=== PATIENT | male | born 1950 | race Caucasian/White ===

== ENCOUNTER 2017-09-20 21:02 | Observation (INO) | payer OTHER, MEDICARE ==
[~2017-09-20] VITALS: Ht 162.6 cm; Wt 95.3 kg
[~2017-09-20 21:02] MED LIST: ABILIFY10 M1 PO; BACTRIM 400-801 EACH PO; CHLORTHALIDONE25 M1 PO; FLUPHENAZINE HC10 M1 PO; GABAPENTIN; LIPITOR40 M1 PO; LOTREL 10-40 M1 EACH PO; LOVAZA1 G1 PO; METFORMIN HCL500 M4 PO; METOPROLOL SUC100 M2 PO; PROAIR HFA8.5 GM INH; PROTONIX40 M3 PO
[2017-09-20 21:46] LABS: ABSOLUTE BASOPHIL COUNT 0.1 /CUMM (0.0-0.2); ABSOLUTE LYMPH COUNT 1.5 /CUMM (1.2-3.4); MEAN PLATELET VOLUME 8.1 FL (7.4-10.4); WHITE BLOOD CELL COUNT 5.9 /CUMM (4.8-10.8)
[2017-09-20 21:48] LABS: ABSOLUTE EOSINOPHIL COUNT 0.2 /CUMM (0.0-0.7); ABSOLUTE GRANULOCYTE CT 3.6 /CUMM (1.4-6.5); ABSOLUTE MONOCYTE COUNT 0.5 /CUMM (0.10-0.60); BASOPHIL % 1.5 % (0.0-2.0); GRANULOCYTE % 60.6 % (42.2-75.2); MEAN CORPUSCULAR HGB 25.9 PG (27.0-31.0); MEAN CORPUSCULAR HGB CONC 32.4 G/DL (33.0-37.0); PLATELET COUNT 198 /CUMM (130-400); PT 11.4 SEC (9.4-12.5); RBC DISTRIBUTION WIDTH 16.7 % (11.5-14.5); RED BLOOD CELL CT 2.44 /CUMM (4.70-6.10)
[2017-09-20 21:51] LABS: HEMATOCRIT 19.5 % (42-52)
--- NOTE | 2017-09-20 22:05 | ED GENERAL ADULT ---
History of Present Illness General Chief Complaint: General Adult Stated Complaint: SIB MD FOR BLOOD TRANSFUSION Source: patient, family Exam Limitations: poor historian Vital Signs & Intake/Output Vital Signs & Intake/Output Vital Signs Date Time Temp Pulse Resp B/P B/P Pulse O2 O2 Flow FiO2 Mean Ox Delivery Rate 09/20 2120 97.4 85 20 163/69 95 Room Air ED Intake and Output 09/21 0000 09/20 1200 Intake Total 120 Output Total Balance 120 Intake, Oral 120 Patient 210 lb Weight Weight Estimated Measurement Method Allergies Coded Allergies: No Known Allergies (06/22/16) Reconcile Medications Albuterol Sulfate (Proair Hfa) 90 MCG HFA.AER.AD 2 PUF INH Q4-6 PRN PRN ASTHMA (Reported) Amlodipine Besylate/Benazepril (Lotrel 10-40 MG Capsule) 10 MG-40 MG CAPSULE 1 CAP PO DAILY HTN (Reported) Aripiprazole (Abilify) 10 MG TABLET 1 TAB PO QHS MENTAL HEALTH (Reported) Atorvastatin Calcium (Lipitor) 40 MG TABLET 1 TAB PO QHS CHOLESTEROL ( Reported) Chlorthalidone 25 MG TABLET 1 TAB PO DAILY HTN (Reported) Fluphenazine HCl 10 MG TABLET 1 TAB PO DAILY MENTAL HEALTH (Reported) [GABAPENTIN] ? (Reported) Metformin HCl (Metformin HCl ER) 500 MG TAB.ER.24H 1 TAB PO DAILY DM II ( Reported) Metoprolol Succinate 100 MG TAB.ER.24H 1 TAB PO DAILY HTN (Reported) [place]-3 Acid Ethyl Esters (Lovaza) 1 GRAM CAPSULE 2 CAP PO BID CHOLESTEROL ( Reported) Pantoprazole Sodium (Protonix) 40 MG TABLET. 1 TAB PO DAILY GERD (Reported) Triage Note: RECEIVED 66 YO MALE SENT IN THE ED BY DR MCDUFFIE FOR TRANSFUSION. PT HAS CHRONIC HEMATURIA FROM BLADDER CA. PT REPORTS FEELING WEAK. Triage Nurses Notes Reviewed? yes Onset: Abrupt Duration: hour(s): Timing: recent history HPI: 09/20/17 11:41 PM 66-year-old man presents to the emergency department for blood transfusion. The patient has a history of renal cell carcinoma. They have decided to treat this nonoperatively; currently he also has a history of diabetes. He also has a history of coronary artery disease. He saw his knitting machine fixer today and was referred to the ED for blood transfusion; he denies chest pain shortness of breath or other complaints. Past medical history of renal insufficiency, also chronic gross hematuria. (Billy Ovalles DO) Past History Travel History Traveled to [place] past 21 day No Medical History Any Pertinent Medical History? 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 No (Billy Ovalles DO) Review of Systems Review of Systems Constitutional: Denies: fever. EENTM: Denies: visual changes. Respiratory: Denies: short of breath. Cardiovascular: Denies: chest pain. GI: Denies: abdominal pain. Genitourinary: Reports: hematuria. Musculoskeletal: Reports: no symptoms. Skin: Denies: rash. Neurological/Psychological: Reports: no symptoms. Hematologic/Endocrine: Reports: bleeding. Immunologic/Allergic: Reports: no symptoms. (Billy Ovalles DO) Physical Exam Physical Exam General Appearance: awake, anxious, moderate distress Head: atraumatic, normal appearance Eyes: Bilateral: normal appearance, PERRL, EOMI. Ears, Nose, Throat: normal ENT inspection Neck: normal inspection, supple Respiratory: normal breath sounds, chest non-tender, no respiratory distress Cardiovascular: regular rate/rhythm Peripheral Pulses: 4+ radial (R), 4+ radial (L) Gastrointestinal: soft, non-tender Rectal: heme negative stool Back: decreased range of motion Extremities: pedal edema Neurologic/Psych: awake, alert, oriented x 3 Skin: intact, normal color, warm/dry Core Measures ACS in differential dx? No CVA/TIA Diagnosis: No Sepsis Present: No Sepsis Focused Exam Completed? No (Billy Ovalles DO) Progress Differential Diagnoses I considered the following diagnoses in my evaluation of the patient: [Anemia, coagulopathy, hematuria, thrombocytopenia] Plan of Care: Orders Procedure Date/time Status Nothing by Mouth 09/21 B Active TROPONIN LEVEL 09/21 929 Active CBC WITHOUT DIFFERENTIAL 09/21 929 Active EKG 09/21 09 Active Pathway - chart 09/21 445 Active House Staff 09/21 445 Active Patient Data 02/13 0446 Active Patient Data 02/13 0430 Active Saline Lock 09/[address] in observation 09/21 422 Active Misc Message 09/21 422 Active ED Holding Orders 09/21 422 Active Vital Signs 09/21 422 Active Code Status 09/21 422 Active Add-on Test (ER Only) 09/21 0330 Active TROPONIN LEVEL 09/21 033 Active BLOOD PRODUCT PICKUP 09/21 031 Active EKG 09/21 228 Active CULTURE,URINE 09/21 223 Active URINALYSIS 09/21 223 Complete VTE Mechanical Prophylaxis 09/21 UNK Active FingerStick- Glucose 09/21 UNK Active BLOOD PRODUCT PICKUP 09/20 2339 Active LEUKOCYTE POOR (PACKED CELLS) 09/20 231 Active Intake & Output 09/20 2218 Active TROPONIN LEVEL 09/20 2129 Complete Saline Lock 09/20 2124 Active PROTHROMBIN TIME 09/20 2124 Complete COMPREHENSIVE METABOLIC PANEL 09/20 2124 Complete CBC WITHOUT DIFFERENTIAL 09/20 2124 Complete TYPE & SCREEN (NOT X-MATCH) 09/20 2124 Active Current Medications Sig/Jacey Start time Last Medication Dose Stop Time Status Admin Insulin Aspart 0 AT BEDTIME 09/21 2200 AC (NovoLOG) Insulin Aspart 0 TIDAC 09/21 0800 AC (NovoLOG) Laboratory Tests 09/21/17 0245: Urinalysis MOD H, Urine Color BLDY H, Urine Clarity TURBD H, Urine pH 6.0, Ur Specific [place] 1.020, Urine Protein 100 H, Urine Ketones NEG, Urine Nitrite NEG, Urine Bilirubin NEG, Urine Urobilinogen 0.2, Ur Leukocyte Esterase NEG, Ur Microscopic SEDIMENT EXAMINED, Urine RBC PACKD H, Urine WBC 1-3 H, Ur Epithelial Cells FEW, Urine Hemoglobin LARGE H, Urine Glucose NEG 09/20/172129: Anion Gap 13, Estimated GFR 40 L, BUN/Creatinine Ratio 17.1, Glucose 146 H, Calcium 9.5, Total Bilirubin < 0.1 L, AST 34, ALT 43, Alkaline Phosphatase 75, Troponin I 0.09, Total Protein 6.9, Albumin 4.1, Globulin 2.8, Albumin/Globulin Ratio 1.5, PT 11.4, INR 1.09, CBC w Diff NO MAN DIFF REQ, RBC 2.44 L, MCV 80.0, MCH 25.9 L, MCHC 32.4 L, RDW 16.7 H, MPV 8.1, Gran % 60.6, Lymphocytes % 25.3 , Monocytes % 8.6, Eosinophils % 4.0, Basophils % 1.5, Absolute Granulocytes 3.6 , Absolute Lymphocytes 1.5, Absolute Monocytes 0.5, Absolute Eosinophils 0.2, Absolute Basophils 0.1 Microbiology 09/21 0245 URINE ROUT: Urine Culture - RECD Initial ED EKG: none (Billy Ovalles DO) Differential Diagnoses I considered the following diagnoses in my evaluation of the patient: Initial ED EKG: flipped t waves with st seg depression, v4-v6 (Adán WOMACK,Manuel Antoine) Departure Departure Disposition: STILL A PATIENT Condition: Stable Clinical Impression Primary Impression: Anemia Secondary Impressions: Renal cancer Referrals: Jessica Sifuentes APRN (PCP/Family) Departure Forms: Customer Survey General Discharge Information Comments 09/21/17 2:30 am The patient is receiving blood transfusions. He was signed out to Dr. Mccain at 2:30 AM (Billy Ovalles DO) Observation Note Spoke With: Maik WOMACK,[facility] Physician Advisor Notified: BILLY OVALLES DO Place Patient In: Non-ED OBS Care Area Rationale for Observation: My rational for observation is as follows . pt with symptomatic anemia, resulting in st segment depressions in v4-v6. discussed with dr. limon (covering for dr. mcduffie).... pt merits observation, serial trops/ekg/monitoring. (Adán WOMACK,Manuel nAtoine) Critical Care Note Critical Care Note Critical Care Time: 30-74 min (Billy Ovalles DO)
--- NOTE | 2017-09-21 04:41 | History & Physical ---
Jess WOMACK,[facility] 09/21/17 0441: General Information and HPI MD Statement: I have seen and personally examined LYN TELLEZ and documented this H&P. The patient is a 66 year old M who presented with a patient stated chief complaint of [anemia, ]. Source of Information: patient, family, old records Exam Limitations: poor historian History of Present Illness: 66 yo M with PMH of diabetes, HTN, HLD, CAD s/p 2 stents at [facility] on August 27 2017, transitional cell carcinoma diagnosed Apr 2017 (Dr Alfredo) was sent in to the ED by his professor computer science Dr Power. Most of the history has been gathered from the sister. The patient is a very poor historian. The sister informs that for the past year, the patient has been having gross hematuria. He was diagnosed with a tumor in his left kidney but he currently isn 't on any treatment for it. Yesterday, he went to see his professor computer science Dr Power who did some blood work. He called the patient today and recommended him to go to the ED as his blood levels were low and he needed a transfusion. The sister also mentions that for the past few days the patient has been feeling tired and lightheaded. He lives in a asssited living senior facility in [place] ([address] [place] [address]). He has a visiting nurse that helps him out with the medications. She mentions the patient likely uses [facility] in [place] as the pharmacy. Further information about the patient may be obtained from the brother Darlin [phone] Allergies/Medications Allergies: Coded Allergies: No Known Allergies (06/22/16) Home Med list Albuterol Sulfate (Proair Hfa) 90 MCG HFA.AER.AD 2 PUF INH Q4-6 PRN PRN ASTHMA (Reported) Amlodipine Besylate/Benazepril (Lotrel 10-40 MG Capsule) 10 MG-40 MG CAPSULE 1 CAP PO DAILY HTN (Reported) Aripiprazole (Abilify) 15 MG TABLET 1 TAB PO DAILY BIPOLAR (Reported) Aspirin (Aspirin*) 81 MG TAB.CHEW 1 TAB PO DAILY CAD (Reported) Atorvastatin Calcium (Lipitor) 40 MG TABLET 1 TAB PO QHS CHOLESTEROL ( Reported) Chlorthalidone 25 MG TABLET 1 TAB PO DAILY HTN (Reported) Clopidogrel Bisulfate (Clopidogrel) 75 MG TABLET 1 TAB PO DAILY CAD (Reported ) Fluphenazine HCl 5 MG TABLET 1 TAB PO BID MENTAL HEALTH (Reported) Gabapentin (Neurontin) 800 MG TABLET 1 TAB PO BID NEUROPATHY (Reported) 1100 MG IN AM AND 800 MG IN PM Metoprolol Succinate 100 MG TAB.ER.24H 1 TAB PO DAILY HTN (Reported) [place]-3 Acid Ethyl Esters (Lovaza) 1 GRAM CAPSULE 2 CAP PO BID CHOLESTEROL ( Reported) Pantoprazole Sodium (Protonix) 40 MG TABLET.DR 1 TAB PO DAILY GERD (Reported) Past History Travel History Traveled to [place] past 21 day No Medical History Neurological: NONE EENT: NONE Cardiovascular: hypertension, hyperlipidemia Respiratory: NONE Gastrointestinal: NONE Hepatic: NONE Renal: NONE Musculoskeletal: NONE Psychiatric: MOOD SWINGS Endocrine: diabetes Blood Disorders: NONE Cancer(s): bladder cancer 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 Exam & Diagnostic Data Last 24 Hrs of Vital Signs/I&O Vital Signs Date Time Temp Pulse Resp B/P B/P Pulse O2 O2 Flow FiO2 Mean Ox Delivery Rate 09/21 0702 96.6 78 18 152/66 98 Room Air 09/20 2121 97.4 85 20 163/69 95 Room Air Intake & Output 09/21 0800 09/21 0000 09/20 1600 Intake Total 700 120 Output Total 200 Balance 500 120 Intake, Blood 700 Product Intake, Oral 120 Output, Urine 200 Patient 210 lb Weight Weight Estimated Measurement Method Physical Exam General Appearance Alert, Cooperative, No Acute Distress Skin No Rashes, No Breakdown Skin Temp/Moisture Exam: Warm/Dry Sepsis Skin Exam (color): Normal for Ethnicity HEENT Atraumatic Cardiovascular Normal S1, Normal S2, No Murmurs Lungs Clear to Auscultation, Normal Air Movement Abdomen Soft, No Tenderness Neurological Normal Speech Extremities No Edema Assessment/Plan Assessment: 66 yo M with PMH of diabetes, HTN, HLD, CAD s/p 2 stents at [facility] on August 27 2017, transitional cell carcinoma diagnosed Apr 2017 (Dr Alfredo) was sent in to the ED by his professor computer science Dr Power. Assessment: Problem List: 1. Acute Blood Loss Anemia 2. Symptomatic Anemia 3. Chronic Hematuria 4. Transitional Cell Carcinoma of Bladder 5. EKG changes - T wave inversions V4-V6 Plan: * Admit patient in Obs and monitor on telemetry for any arrhythmias. * transfuse 2 units pRBC and repeat CBC 1 hour after transfusion * Target Hb >8 as he has active history of CAD with stents placed last month. * R/o ACS with serial trops and EKG * Obtain Echocardiogram * Urology consult with Dr Alfredo * Follow up urine culture. * Cardiology consult with Dr Power in am * Insulin SS with Accucheks * Obtain medication list from his pharmacy ([facility] in [place] according to sister and [facility] in [place] as per patient) or from his [facility] facility. * Diet: Diabetic * DVT Prophylaxis: SC Heparin x 3 * Code: Full Code As Ranked By This Provider Problem List: 1. Hematuria Core Measures/Misc (04/25) Acute Coronary Syndrome ACS Diagnosis: No Congestive Heart Failure Congestive Heart Failure Diagnosis No Cerebrovascular Accident CVA/TIA Diagnosis: No VTE (View Protocol) VTE Risk Factors Age>40 No Mechanical VTE Prophylaxis d/t N/A MechProphylax Ordered No VTE Pharm Prophylaxis d/t NA PharmProphylax ordered Sepsis (View protocol) Sepsis Present: No Observation Initial Note - I have personally examined LYN TELLEZ on 09/21/17 at 0754. The disposition of LYN TELLEZ is uncertain at this time and before a determination can be made, he requires a period of observation for the following reasons [anemia, EKG changes] Austin WOMACK,Rogelio 09/21/17 0445: Resident Review Statement Resident Statement: examined this patient, discussed with finance accounting internship Other Findings: H Mr Tellez is a 66 yo M with PMH of diabetes, HTN, HLD, CAD s/p 2 stents at [facility] on August 27 2017, transitional cell carcinoma diagnosed Apr 2017 (Dr Alfredo) who was sent in by his professor computer science due evidence of low H/H from outpatient screening. We attempted to obtain clinical history from the patient however he was unable to provide a clear history. Some of the history below was obtained from the patient's sister who states that the patient has been having gross hematuria for approximately a year and 2 months. He was diagnosed with a left kidney tumor however is currently not on any treatment for it. He recently went to see his professor computer science on 09/20/2017 and after blood work showed he was profoundly anemic he was requested to come to the emergency department. Patient lives in senior facility in [place]. He has a visiting nurse that helps him with medications. Patient has a history of smoking approximately 30 pack years. An EKG done in the emergency department showed flipped T waves. R: April clinical interaction the patient denied any fever, chills, nausea, vomiting. He does endorse recent weight loss. Denies any chest pain or chest discomfort. He denies any changes to dysuria. E temperature 97.4. Respirations 20. BP 160 through 69. Heart rate 85.. L WBC 5.9. H&H 6.3 and 19.5. Platelets 158. Sodium 138. Potassium 3.9. BUN 29. Creatinine 1.7. I As above. EKG: T wave inversions V3 V4 V5 V6. A Mr Tellez is a 66 yo M with PMH of diabetes, HTN, HLD, CAD s/p 2 stents at [facility] on August 27 2017, transitional cell carcinoma diagnosed Apr 2017 (Dr Alfredo) who was sent in by his professor computer science due evidence of low H/H from outpatient screening. No H&H likely result of losses from hematuria. Acute blood loss anemia likely due to hematuria. Symptomatic anemia. Acute kidney injury. EKG changes. Recent diagnosis of transitional cell carcinoma. Place in observation for 24 hours. Monitor serial EKG and troponin. Obtain echocardiogram. Cardiology consultation with Dr. Power. Transfuse to maintain H&H above 8. Obtain urology consultation. Consider urine analysis. Obtain medication reconciliation from [facility] in [place]. Patient is a full code. Observation Initial Note - I have personally examined LYN TELLEZ on 09/21/17 at 0949. The disposition of LYN TELLEZ is uncertain at this time and before a determination can be made, he requires a period of observation for the following reasons [] Maik WOMACK, [facility] 09/21/17 0612: Attending MD Review Statement Attending Statement Attending MD Statement: examined this patient, discuss w/resident/PA/FLAVOR ROOM WORKER, agreed w/resident/PA/FLAVOR ROOM WORKER, reviewed images, amended to note Attending Assessment/Plan: 66 yo M with h/o HTN, T2DM, CKD, CAD s/p angioplasty and 2 stents (Aug 2017 at [facility]), gross hematuria underwent cystoscopy with renal biopsy and left ureteral stent insertion (Apr 2017) concerning for transitional cell carcinoma located in the left renal pelvis and extending into the lower pole calyx, was sent in to ER yesterday evening by Dr. Power for blood transfusion given low blood counts. Patient is a very poor historian and would not answer any questions for us. Limited history was obtained from sister. Patient follows Dr. Alfredo and it is not clear if his renal cancer was treated. The only symptoms that patient reports is weakness and lightheadedness. But he attributes it to walking too much. He denies chest pain, dyspnea or palpitations. Pathology (Apr 2017) reports shows benign left renal biopsy and urothelial proliferation of uncertain malignant potential on bladder biospy. Cytology suggest possible dysplasia/ carcinoma. Vitals stable. Examination is remarkable for pallor. Patient was not co-operative with an exam. Labs: H/H 6.3/19.5 (baseline 11-13/ 32-39), INR 1.09, BUN 29, creat 1.7 ( Baseline 0.9 --> 1.5), glucose 146. UA bloody, turbid, proteinuria, packed RBC, large hemoglobin. EKG: sinus rhythm, TWI in V3-V6, I, II, aVL (old ekg is from 2004). Assessment and plan: 1. Acute blood loss anemia 2. Symptomatic anemia 3. Gross hematuria 4. Recent diagnosis of renal/transitional cell carcinoma 5. Acute EKG changes 6. Recent h/o CAD with stent placement 7. ARETHA renal functions have been gradually worsening over past 3 months - 23 hour observation on Telemetry - Monitor for arrhythmias - Check orthostats - Serial EKG and troponin - Obtain Echo - Consult Cardio Dr. Power - [place] all stools - 2 units PRBC ordered by ER - Goal Hb > 8.0 - Check iron studies, TSH, B12, folic acid, LDH, retic count - Urology consult - Gentle hydration, follow renal functions - Consider nephrology consult - Please obtain records from [facility] or [facility] - CMR needs to be confirmed and meds need to be resumed in AM - I think his EKG findings are from his most recent CAD and stent placement. Please confirm with Dr. Power. DVT ppx Hep SC. Full code. Observation Initial Note - I have personally examined LYN TELLEZ on 09/21/17 at 0612. The disposition of LYN TELLEZ is uncertain at this time and before a determination can be made, he requires a period of observation for the following reasons [anemia, EKG changes] The disposition of LYN TELLEZ is uncertain at this time and before a determination can be made, he requires a period of observation for the following reasons [anemia, EKG changes]
--- NOTE | 2017-09-21 07:31 | PN- Housestaff ---
China Schroeder 09/21/17 0730: Subjective Follow-up For: Acute blood loss anemia due to gross hematuria. Acute T wave inversions History of recent GA (coronary artery diseasestatus posts/p angioplasty and 2 stents recently diagnosed transitional cell carcinoma Subjective: Patient is seen and examined this morning seems better than yesterday denies any chest discomfort trouble breathing palpitations. Vitals are stable. H&H improved after 2 units of blood transfusion, to 8.4/25. 2 sets of troponin negative. Review of Systems Constitutional: Denies: chills, diaphoresis, malaise. EENTM: Denies: blurred vision, double vision, visual changes. Cardiovascular: Denies: chest pain, edema, orthopena. Respiratory: Denies: cough, hemoptysis, short of breath. Gastrointestinal: Denies: abdominal pain, bloating, constipation. Genitourinary: Denies: discharge, dysuria, frequency. Objective Last 24 Hrs of Vital Signs/I&O Vital Signs Date Time Temp Pulse Resp B/P B/P Pulse O2 O2 Flow FiO2 Mean Ox Delivery Rate 09/21 1141 98.2 88 18 192/77 97 09/21 1101 97.0 85 20 150/80 09/21 1030 97.0 85 20 150/80 09/21 1030 97.0 85 20 150/80 09/21 0915 97.0 85 20 150/80 98 Room Air 09/21 0915 97.0 85 20 150/80 98 Room Air 09/21 0702 96.6 78 18 152/66 98 Room Air 09/20 2121 97.4 85 20 163/69 95 Room Air Intake & Output 09/21 1600 09/21 0800 09/21 0000 Intake Total 700 120 Output Total 200 Balance 500 120 Intake, Blood 700 Product Intake, Oral 120 Output, Urine 200 Patient 210 lb 210 lb Weight Weight Estimated Measurement Method Physical Exam General Appearance: Alert, Oriented X3 Skin: No Rashes, No Breakdown HEENT: Atraumatic, PERRLA, EOMI Neck: Supple, No JVD Cardiovascular: Regular Rate, Normal S1, Normal S2 Lungs: Clear to Auscultation Abdomen: Normal Bowel Sounds, Soft, No Tenderness Current Medications: Current Medications Sig/Jacey Start time Last Medication Dose Route Stop Time Status Admin Amlodipine Besylate 10 MG DAILY 09/21 1000 AC 09/21 PO 1030 Aripiprazole 15 MG DAILY 09/21 1000 AC 09/21 PO 1030 Aspirin 81 MG DAILY 09/21 1000 AC 09/21 PO 1030 Atorvastatin Calcium 40 MG AT BEDTIME 09/21 2200 AC PO Chlorthalidone 25 MG DAILY 09/21 1000 AC 09/21 PO 1030 Clopidogrel Bisulfate 75 MG DAILY 09/21 1000 AC 09/21 PO 1030 Fluphenazine HCl 5 MG BID 09/21 1000 AC 09/21 PO 1030 Gabapentin 800 MG BID 09/21 1000 AC 09/21 PO 1030 Heparin Sodium 0 .STK-MED ONE 09/21 0829 DC (Porcine) .ROUTE Heparin Sodium 5,000 UNIT Q8 09/21 0816 AC 09/21 (Porcine) SC 0825 Insulin Aspart 0 AT BEDTIME 09/21 2200 AC SC Insulin Aspart 0 TIDAC 09/21 0800 AC SC Lisinopril 40 MG DAILY 09/21 1000 DC PO Metoprolol Succinate 100 MG DAILY 09/21 1000 AC 09/21 PO 1030 Last 24 Hrs of Lab/Jose Results Last 24 Hrs of Labs/Mics: Laboratory Tests 09/21/17 1057: Anion Gap 12, Estimated GFR > 60, BUN/Creatinine Ratio 17.5 09/21/17 0853: Hemoglobin A1c 6.1 H, Iron 31 L, TIBC 478 H, Lactate Dehydrogenase 540, Troponin I 0.08, Vitamin B12 374, Folate 18.2, TSH 0.988, CBC w Diff NO MAN DIFF REQ, RBC 3.15 L, MCV 80.7, MCH 26.6 L, MCHC 33.0, RDW 16.2 H, MPV 8.3, Gran % 60.4, Lymphocytes % 24.2, Monocytes % 8.8, Eosinophils % 5.3 H, Basophils % 1.3 , Absolute Granulocytes 2.9, Absolute Lymphocytes 1.2, Absolute Monocytes 0.4, Absolute Eosinophils 0.3, Absolute Basophils 0.1, Retic Count 2.41 H 09/21/17 0330: Troponin I Cancelled 09/21/17 0245: Urinalysis MOD H, Urine Color BLDY H, Urine Clarity TURBD H, Urine pH 6.0, Ur Specific [place] 1.020, Urine Protein 100 H, Urine Ketones NEG, Urine Nitrite NEG, Urine Bilirubin NEG, Urine Urobilinogen 0.2, Ur Leukocyte Esterase NEG, Ur Microscopic SEDIMENT EXAMINED, Urine RBC PACKD H, Urine WBC 1-3 H, Ur Epithelial Cells FEW, Urine Hemoglobin LARGE H, Urine Glucose NEG 09/20/17 2130: Anion Gap 13, Estimated GFR 40 L, BUN/Creatinine Ratio 17.1, Glucose 146 H, Calcium 9.5, Total Bilirubin < 0.1 L, AST 34, ALT 43, Alkaline Phosphatase 75, Troponin I 0.09, Total Protein 6.9, Albumin 4.1, Globulin 2.8, Albumin/Globulin Ratio 1.5, PT 11.4, INR 1.09, CBC w Diff NO MAN DIFF REQ, RBC 2.44 L, MCV 80.0, MCH 25.9 L, MCHC 32.4 L, RDW 16.7 H, MPV 8.1, Gran % 60.6, Lymphocytes % 25.3 , Monocytes % 8.6, Eosinophils % 4.0, Basophils % 1.5, Absolute Granulocytes 3.6 , Absolute Lymphocytes 1.5, Absolute Monocytes 0.5, Absolute Eosinophils 0.2, Absolute Basophils 0.1 Microbiology 09/21 0245 URINE ROUT: Urine Culture - RECD Assessment/Plan Assessment: Patient is a 66-year-old gentleman with a past medical history significant for hypertension and hyperlipidemia, recent GA status post s/p angioplasty and 2 stents, recently diagnosed transitional cell carcinoma, CAD, type 2 diabetes was sent in by Dr. Power yesterday for blood transfusion due to low blood counts. Problem list Acute blood loss anemia due to GROSS hematuria. Acute T wave inversions History of recent GA (coronary artery diseasestatus post s/p angioplasty and 2 stents Recently diagnosed transitional cell carcinoma \ Plan Acute blood loss anemia due to GROSS hematuria(Recently diagnosed transitional cell carcinoma) * Patient has been monitored on telemetry for 24 hours * H&H improved after 2 units of blood transfusion, to 8.4/25. * Patient has been evaluated by Dr. Alfredo in the morning recommended no surgical interventions at that time. * Advised to follow-up with [facility] after discharge. Acute T wave inversions ( History of recent GA (coronary artery diseasestatus post s/p angioplasty and 2 stents ) * 2 sets of troponin negative with nonspecific T-wave changes in V4 to V6. * Patient is currently asymptomatic, has been evaluated by cardiology in the morning, recommended to continue with aspirin and Plavix (in the setting of recent GA status post angioplasty and drug-eluting stents). Continue all of his home medications. * Continue to monitor H&H. * Patient is medically stable for discharge today advised to follow-up with Dr. Power within 1 week after discharge. * Repeat CBCs within 1 week after discharge. Acute on chronic CKD * Creatinine improved ,Will continue with ANGELES inhibitor is on discharge. DVT prophylaxis Alps only Patient is full CODE Problem List: 1. Hematuria 2. Anemia 3. Renal cancer Pain Ratin Pain Location: no pain at this time Pain Goal: Remain pain free Pain Plan: prn tylenol Tomorrow's Labs & Rationales: no labs. Brian WOMACK,Cinthya 09/21/17 1410: Attending MD Review Statement Attending Statement Attending MD Statement: examined this patient, discuss w/resident/PA/MECHANICAL CAR CHECKER, agreed w/resident/PA/MECHANICAL CAR CHECKER, reviewed EMR data (avail), discussed with nursing, reviewed images Attending Assessment/Plan: Patient seen and examined. He is in observation status and is very keen on leaving. He is a 66-year-old male with a past medical history of diet- controlled diabetes, he hasn't taken his metformin for many months now. He also has hypertension, diabetes, CKD and coronary artery disease with recent stent placement on August 26 on dual antiplatelet therapy. He has transitional cell carcinoma with hematuria ongoing and has had urological evaluations in the past and a urological eval with Dr. Alfredo on this admission. He was sent in by Dr. Power for acute blood loss anemia and was transfused 2 units of blood. He was observed for T-wave inversions and the worry was whether these are old or new. He is asymptomatic and keen on leaving and we confirmed with Dr. Power that he is stable to go. His discharge hemoglobin is 8 and they've given him a prescription to check his CBC in a week to report her hemoglobin to Dr. Power. He needs to go on aspirin and Plavix even though there are risks of bleeding, as the risk of in-stent thrombosis outweigh the risks of bleeding. He will have outpatient urological follow-up. His ARETHA on CKD has resolved and we have restarted his angeles and his diuretic per Dr. Power.
--- NOTE | 2017-09-21 08:29 | PN- Urology ---
Surgical Brief Attending Note Brief Attending Note: Patient known to me but receiving his urologic care at [facility]. He developed gross hematuria and w/u showed an atrophic R kidney and a mass in the L kidney c/w transitional cell ca. Renal scan showed 70% of renal fxn from L kidney and 30% from R. Option of L nephroureterectomy was discussed realizing high probability that patient would require dialysis post op. Because of this conservative management was chosen. He is now admitted with gross hematuria and Hct of 19.5. Plan: 1. Transfuse appropriately 2. After discharge he should f/u with [facility] to re-evaluate treatment options
[2017-09-21 09:13] LABS: ABSOLUTE BASOPHIL COUNT 0.1 /CUMM (0.0-0.2); ABSOLUTE EOSINOPHIL COUNT 0.3 /CUMM (0.0-0.7); ABSOLUTE GRANULOCYTE CT 2.9 /CUMM (1.4-6.5); ABSOLUTE LYMPH COUNT 1.2 /CUMM (1.2-3.4); ABSOLUTE MONOCYTE COUNT 0.4 /CUMM (0.10-0.60); BASOPHIL % 1.3 % (0.0-2.0); EOSINOPHIL % 5.3 % (0-5); GRANULOCYTE % 60.4 % (42.2-75.2); MEAN CORPUSCULAR HGB 26.6 PG (27.0-31.0); MEAN CORPUSCULAR VOLUME 80.7 FL (80.0-94.0); MEAN PLATELET VOLUME 8.3 FL (7.4-10.4); PLATELET COUNT 213 /CUMM (130-400); RBC DISTRIBUTION WIDTH 16.2 % (11.5-14.5); WHITE BLOOD CELL COUNT 4.8 /CUMM (4.8-10.8)
[2017-09-21 09:15] VITALS: BP 150/80
[2017-09-21 09:15] LABS: HEMATOCRIT 25.4 % (42-52); RED BLOOD CELL CT 3.15 /CUMM (4.70-6.10)
[2017-09-21] MEDS ORDERED: ABILIFY15 M1 PO (09:41)
[2017-09-21] MEDS ORDERED: CLOPIDOGREL75 M1 PO (09:42)
[2017-09-21] MEDS ORDERED: ASPIRIN81 M4 PO (09:42)
[2017-09-21] MEDS ORDERED: NEURONTIN800 M2 PO (09:42)
[2017-09-21] MEDS ORDERED: FLUPHENAZINE HCL5 M1 PO (09:44)
--- NOTE | 2017-09-21 12:01 | Cons- Cardiology ---
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 A nephroureterectomy was discussed but was deferred because of the high probability of requiring dialysis and conservative management has been chosen. He underwent recent drug-eluting stent placement 3 for his coronary artery disease. He notes chronic hematuria over the past year secondary to his bladder cancer, which seems to have worsened since the stent placement. He requires aspirin and Plavix because of the stent placement. He complains of recent fatigue and lightheadedness. Prior to his coronary stent placement he was having frequent chest pain, however the chest pain is much better since that time. No recent shortness of breath. No palpitations. No diaphoresis. No nausea or vomiting Allergies/Medications Allergies: Coded Allergies: No Known Allergies (06/22/16) Home Med List: Albuterol Sulfate (Proair Hfa) 90 MCG HFA.AER.AD 2 PUF INH Q4-6 PRN PRN ASTHMA (Reported) Amlodipine Besylate/Benazepril (Lotrel 10-40 MG Capsule) 10 MG-40 MG CAPSULE 1 CAP PO DAILY HTN (Reported) Aripiprazole (Abilify) 15 MG TABLET 1 TAB PO DAILY BIPOLAR (Reported) Aspirin (Aspirin*) 81 MG TAB.CHEW 1 TAB PO DAILY CAD (Reported) Atorvastatin Calcium (Lipitor) 40 MG TABLET 1 TAB PO QHS CHOLESTEROL ( Reported) Chlorthalidone 25 MG TABLET 1 TAB PO DAILY HTN (Reported) Clopidogrel Bisulfate (Clopidogrel) 75 MG TABLET 1 TAB PO DAILY CAD (Reported ) Fluphenazine HCl 5 MG TABLET 1 TAB PO BID MENTAL HEALTH (Reported) Gabapentin (Neurontin) 800 MG TABLET 1 TAB PO BID NEUROPATHY (Reported) 1100 MG IN AM AND 800 MG IN PM Metoprolol Succinate 100 MG TAB.ER.24H 1 TAB PO DAILY HTN (Reported) Artesian-3 Acid Ethyl Esters (Lovaza) 1 GRAM CAPSULE 2 CAP PO BID CHOLESTEROL ( Reported) Pantoprazole Sodium (Protonix) 40 MG TABLET.DR 1 TAB PO DAILY GERD (Reported) Current Medications: Current Medications Sig/Jacey Start time Last Medication Dose Route Stop Time Status Admin Amlodipine Besylate 10 MG DAILY 09/21 1000 DCD 09/21 PO 1030 Aripiprazole 15 MG DAILY 09/21 1000 DCD 09/21 PO 1030 Aspirin 81 MG DAILY 09/21 1000 DCD 09/21 PO 1030 Atorvastatin Calcium 40 MG AT BEDTIME 09/21 2200 DCD PO Chlorthalidone 25 MG DAILY 09/21 1000 DCD 09/21 PO 1030 Clopidogrel Bisulfate 75 MG DAILY 09/21 1000 DCD 09/21 PO 1030 Fluphenazine HCl 5 MG BID 09/21 1000 DCD 09/21 PO 1030 Gabapentin 800 MG BID 09/21 1000 DCD 09/21 PO 1030 Heparin Sodium 0 .STK-MED ONE 09/21 1426 DC (Porcine) .ROUTE Heparin Sodium 0 .STK-MED ONE 09/21 0829 DC (Porcine) .ROUTE Heparin Sodium 5,000 UNIT Q8 09/21 0816 DCD 09/21 (Porcine) SC 1420 Insulin Aspart 0 AT BEDTIME 09/21 2200 DCD SC Insulin Aspart 0 TIDAC 09/21 0800 DCD SC Lisinopril 40 MG DAILY 09/21 1000 DC PO Metoprolol Succinate 100 MG DAILY 09/21 1000 DCD 09/21 PO 1030 Review of Systems Review of Systems: No hemoptysis. No hematemesis. No fever. No chills. All other systems were reviewed, and were noted to be negative. Past History Travel History Traveled to [place] past 21 day No Medical History Neurological: NONE EENT: NONE Cardiovascular: hypertension, hyperlipidemia Respiratory: NONE Gastrointestinal: NONE Hepatic: NONE Renal: NONE Musculoskeletal: NONE Psychiatric: MOOD SWINGS Endocrine: diabetes Blood Disorders: NONE Cancer(s): bladder cancer FIRE BEHAVIOR ANALYST/Reproductive: NONE Surgical History Surgical History: non-contributory Exam & Diagnostic Data Vital Signs and I&O Vital Signs Date Time Temp Pulse Resp B/P B/P Pulse O2 O2 Flow FiO2 Mean Ox Delivery Rate 09/21 1430 98.0 80 20 140/80 98 Room Air 09/21 1141 98.2 88 18 192/77 97 09/21 1101 97.0 85 20 150/80 09/21 1030 97.0 85 20 150/80 09/21 1030 97.0 85 20 150/80 09/21 0915 97.0 85 20 150/80 98 Room Air 09/21 0915 97.0 85 20 150/80 98 Room Air 09/21 0702 96.6 78 18 152/66 98 Room Air 09/201 97.4 85 20 163/69 95 Room Air Intake & Output 09/21 1600 09/21 0000 09/20 1600 09/20 0809/20 0000 Intake Total 700 120 Output Total 200 Balance 500 120 Intake, Blood 700 Product Intake, Oral 120 Output, Urine 200 Patient 210 lb 210 lb Weight Weight Estimated Measurement Method Assessment/Plan Assessment/Plan Assessment: 1. Recent drug-eluting stent placement 3. Aspirin and Plavix required. 2. Transitional cell carcinoma of the left kidney 3. Gross hematuria Recommendations: * Transfusion * Check serial troponin to rule out myocardial infarction * Urology evaluation after discharge at [place] for hematuria * Follow up in the office within 1 week after discharge, and call with further symptoms. Consult Acknowledgment - Thank you for your consult request.
--- NOTE | 2017-09-21 12:14 | Patient Discharge Instructions ---
Discharge Instructions General Discharge Information You were seen/treated for: Acute blood loss anemia Special Instructions: Please follow-up with your primary care physician within 1 week after discharge. Watch for any active signs of bleed. Repeat CBCs within 1 week after discharge Please follow-up with your sql bi developer within 1 week after discharge Diet Recommended Diet: Heart Healthy Activity Activity Self Limited: Yes Acute Coronary Syndrome Inclusion Criteria At DC or during hospital stay patient has or had the following: Discharge Core Measures Meds if any: Prescribed or Continued at Discharge Meds if any: NOT Prescribed or Continued at Discharge Congestive Heart Failure Inclusion Criteria At DC or during hospital stay patient has or had the following: CHF DIAGNOSIS No Discharge Core Measures Meds if any: Prescribed or Continued at Discharge Meds if any: NOT Prescribed or Continued at Discharge Cerebrovascular accident Inclusion Criteria At DC or during hospital stay patient has or had the following: CVA/TIA Diagnosis No Discharge Core Measures Meds if any: Prescribed or Continued at Discharge Meds if any: NOT Prescribed or Continued at Discharge Venous thromboembolism Inclusion Criteria VTE Diagnosis No VTE Type NONE VTE Confirmed by (Test) NONE Discharge Core Measures - Per Current guidelines, there needs to be overlap - treatment for the first 5 days of Warfarin therapy. - If discharged on Warfarin prior to 5 days of - overlap therapy, the patient will need to be - assessed for post discharge needs including - *Post discharge parental anticoagulation - *Warfarin and/or parental anticoagulation education - *Follow up date to check INR post discharge At least 5 days overlap therapy as Inpatient No Meds if any: Prescribed or Continued at Discharge Note: Overlap Therapy is Warfarin and Anticoagulant Meds if any: NOT Prescribed or Continued at Discharge
[2017-09-21 14:30] VITALS: BP 140/80
== END 2017-09-21 14:30 ==
LOC: ERH 21:02 → ERHI 09-21 04:23
PROVIDERS: Emergency Medicine; Student in an Organized Health Care Education/Training Program
DX: D62 Acute posthemorrhagic anemia (principal); E11.22 Type 2 diabetes mellitus with diabetic chronic kidney disease; I12.9 Hypertensive chronic kidney disease with stage 1 through stage 4 chronic kidney disease, or unspecified chronic kidney disease; E78.5 Hyperlipidemia, unspecified; N18.9 Chronic kidney disease, unspecified; E11.40 Type 2 diabetes mellitus with diabetic neuropathy, unspecified; I21.9 Acute myocardial infarction, unspecified; I25.10 Atherosclerotic heart disease of native coronary artery without angina pectoris; Z95.5 Presence of coronary angioplasty implant and graft; Z79.82 Long term (current) use of aspirin; Z85.51 Personal history of malignant neoplasm of bladder; Z79.01 Long term (current) use of anticoagulants; R31.9 Hematuria, unspecified
CPT/HCPCS: 81001; 82436; 86920; 87086; 93005; 93010; 96372; 96374; 99291; G0378; J1644; J3490; J7508; P9016

== ENCOUNTER 2017-10-14 13:59 | Inpatient (IN) | payer OTHER, MEDICARE ==
[~2017-10-14] VITALS: Ht 162.6 cm; Wt 95.9 kg
[~2017-10-14 13:59] MED LIST changes: +ABILIFY15 M1 PO; +ASPIRIN81 M4 PO; +CLOPIDOGREL75 M1 PO; +FLUPHENAZINE HCL5 M1 PO; +NEURONTIN800 M2 PO
[2017-10-14 14:29] LABS: ABSOLUTE BASOPHIL COUNT 0 /CUMM (0.0-0.2); ABSOLUTE EOSINOPHIL COUNT 0.2 /CUMM (0.0-0.7); ABSOLUTE GRANULOCYTE CT 3.7 /CUMM (1.4-6.5); ABSOLUTE LYMPH COUNT 1.2 /CUMM (1.2-3.4); ABSOLUTE MONOCYTE COUNT 0.4 /CUMM (0.10-0.60); BASOPHIL % 0.8 % (0.0-2.0); EOSINOPHIL % 3.7 % (0-5); MEAN CORPUSCULAR HGB 24.7 PG (27.0-31.0); MEAN CORPUSCULAR HGB CONC 32.5 G/DL (33.0-37.0); MEAN CORPUSCULAR VOLUME 75.9 FL (80.0-94.0); MEAN PLATELET VOLUME 7.7 FL (7.4-10.4); PLATELET COUNT 224 /CUMM (130-400); RBC DISTRIBUTION WIDTH 18.2 % (11.5-14.5); RED BLOOD CELL CT 2.54 /CUMM (4.70-6.10); WHITE BLOOD CELL COUNT 5.5 /CUMM (4.8-10.8)
[2017-10-14 14:30] LABS: HEMATOCRIT 19.3 % (42-52)
--- NOTE | 2017-10-14 14:43 | ED GENERAL ADULT ---
See Addendum History of Present Illness General Chief Complaint: General Adult Stated Complaint: HGB 6.3 AT OFFICE SENT FOR TRANSFUSION Source: patient, old records, PCP Exam Limitations: no limitations Vital Signs & Intake/Output Vital Signs & Intake/Output ED Intake and Output 10/17 0000 10/16 1200 Intake Total 610 240 Output Total Balance 610 240 Intake, IV 10 Intake, Oral 600 240 Number 1 Bowel Movements Patient 212 lb Weight Weight Bed scale Measurement Method Allergies Coded Allergies: No Known Allergies (06/22/16) Triage Note: SIB [facility] FOR BLOOD TRANSFUSION. PT HGB 6.3 TODAY. RECENT CARDIAC STENTS X 1 MONTH AGO Triage Nurses Notes Reviewed? yes Onset: Abrupt Duration: week(s): (3-4), changing over time, continues in ED, getting worse Timing: recent history Injury Environment: home Severity: moderate, severe No Modifying Factors: none HPI: 66-year-old male past medical history of transitional cell renal carcinoma, coronary artery disease hypertension hyperlipidemia diabetes since for evaluation of symptoms may anemia. Patient has been having hematuria for the past several weeks. He has a history of renal cell carcinoma was recently started on Plavix due to coronary artery disease and 2 stents being placed last month. Since the hematuria his hemoglobin is gradually been dropping. His primary care doctor is been tracking it each week. Patient came in today for another blood draw and is single with 6.3. The primary care doctor felt like he looked very pale and he is been reporting weakness fatigue and shortness of breath on exertion. No chest pain no melena no bright red blood per rectum. He reports that he is been having large amounts of blood in his urine. No difficulty urinating. No back pain or abdominal pain. No hemoptysis or lower extremity edema. (Pato RASHID,Minesh) Reconcile Medications Albuterol Sulfate (Proair Hfa) 90 MCG HFA.AER.AD 2 PUF INH Q4-6 PRN PRN ASTHMA (Reported) Amlodipine Besylate/Benazepril (Lotrel 10-40 MG Capsule) 10 MG-40 MG CAPSULE 1 CAP PO DAILY HTN (Reported) Aripiprazole (Abilify) 15 MG TABLET 1 TAB PO DAILY BIPOLAR (Reported) Aspirin (Aspirin*) 81 MG TAB.CHEW 1 TAB PO DAILY CAD (Reported) Atorvastatin Calcium (Lipitor) 40 MG TABLET 1 TAB PO QHS CHOLESTEROL ( Reported) Chlorthalidone 25 MG TABLET 1 TAB PO DAILY HTN (Reported) Clopidogrel Bisulfate (Clopidogrel) 75 MG TABLET 1 TAB PO DAILY CAD (Reported ) Ferrous Sulfate 325 MG (65 MG IRON) TABLET 1 TAB PO DAILY anemia (Reported) Fluphenazine HCl 5 MG TABLET 1 TAB PO BID MENTAL HEALTH (Reported) Gabapentin (Neurontin) 800 MG TABLET 1 TAB PO BID NEUROPATHY (Reported) 1100 MG IN AM AND 800 MG IN PM Metoprolol Succinate 100 MG TAB.ER.24H 1 TAB PO DAILY HTN (Reported) [place]-3 Acid Ethyl Esters (Lovaza) 1 GRAM CAPSULE 2 CAP PO BID CHOLESTEROL ( Reported) Pantoprazole Sodium (Protonix) 40 MG TABLET.DR 1 TAB PO DAILY GERD (Reported) (Salas WOMACK,Nereida) Past History Travel History Traveled to [place] past 21 day No Medical History Any Pertinent Medical History? see below for history Neurological: NONE EENT: NONE Cardiovascular: hypertension, hyperlipidemia Respiratory: NONE Gastrointestinal: NONE Hepatic: NONE Renal: NONE Musculoskeletal: NONE Psychiatric: MOOD SWINGS Endocrine: diabetes Blood Disorders: anemia Cancer(s): bladder cancer MEDICATION COORDINATOR/Reproductive: NONE Surgical History Surgical History: non-contributory Psychosocial History What is your primary language Uruguayan Tobacco Use: Current Not Daily ETOH Use: denies use Illicit Drug Use: denies illicit drug use Family History Hx Contributory? No (Minesh Glasgow) Review of Systems Review of Systems Constitutional: Reports: malaise, weakness. EENTM: Reports: no symptoms. Respiratory: Reports: see HPI, short of breath. Cardiovascular: Reports: no symptoms. GI: Reports: no symptoms. Genitourinary: Reports: hematuria. Musculoskeletal: Reports: no symptoms. Skin: Reports: no symptoms. Neurological/Psychological: Reports: no symptoms. Hematologic/Endocrine: Reports: no symptoms. Immunologic/Allergic: Reports: no symptoms. All Other Systems: Reviewed and Negative (Minesh Glasgow) Physical Exam Physical Exam General Appearance: well developed/nourished, no apparent distress, alert, awake Head: atraumatic, normal appearance Eyes: Bilateral: PERRL, EOMI, pale conjunctivae. Ears, Nose, Throat: normal pharynx, normal ENT inspection, hearing grossly normal Neck: normal inspection, supple, full range of motion Respiratory: chest non-tender, no respiratory distress, quiet respiration, rhonchi, wheezing Cardiovascular: regular rate/rhythm, normal peripheral pulses Peripheral Pulses: 2+ radial (R), 2+ radial (L) Gastrointestinal: normal bowel sounds, soft, non-tender, no organomegaly Rectal: normal exam, normal rectal tone, heme negative stool Back: normal inspection, normal range of motion, no vertebral tenderness Extremities: normal inspection, normal capillary refill, normal range of motion, no edema Neurologic/Psych: no motor/sensory deficits, awake, alert, oriented x 3, normal gait, normal mood/affect Skin: intact, warm/dry, pallor Lymphatic: no anterior cervical jeferson Core Measures ACS in differential dx? No CVA/TIA Diagnosis: No Sepsis Present: No Sepsis Focused Exam Completed? No (Pato RASHID,Minesh) Progress Differential Diagnoses I considered the following diagnoses in my evaluation of the patient: [ Symptomatic anemia, UTI, kidney stone, pneumonia, bronchitis] Plan of Care: Orders Procedure Date/time Status Discharge Patient 10/16 UNK Active Patient seen and evaluated. He appears very pale and weak. Vital signs are currently stable. He is mentating well. Hemoglobin is 6.3. Rectal exam is negative for blood. Transfusion ordered. Chest x-ray does show some possible signs of interstitial pneumonitis versus CHF. Transfusion ordered at 50 ML's per hour. Additionally patient's creatinine is elevated is GFR is less than half a week usually is. Patient will require admission to the hospital for transfusion serial labs neurology consult, cardiology consult, medication adjustment. Case DISCUSSED WITH Dr. Marina she agrees. Diagnostic Imaging: Viewed by Me: Radiology Read. Discussed w/RAD: Radiology Read. CXR Impression: PATIENT: LYN TELLEZ PRESENT AGE: 66 PATIENT ACCOUNT NO: [id number] : 49 LOCATION: [facility] ORDERING PHYSICIAN: Minesh RASHID SERVICE DATE: 10/14/174441 EXAM TYPE: RAD - XRY-PORTABLE CHEST XRAY EXAMINATION: XR PORTABLE CHEST CLINICAL INFORMATION: Congestive heart failure. Pneumonia. Weakness. COMPARISON: Chest CT 04/13/2017 TECHNIQUE: Portable frontal view of the chest was obtained. FINDINGS: Low lung volumes. There is diffuse coarse interstitial prominence. No focal consolidation or mass. Heart size upper limits of normal. Aortic arch is calcified. No pleural effusion or pneumothorax. No acute osseous abnormality. IMPRESSION: There is diffuse coarse interstitial prominence. This can be seen acutely with bronchiolitis or interstitial pneumonitis, chronically with chronic bronchitis or reactive airways disease. DICTATED BY: Jay Hua MD DATE/TIME DICTATED:10/14/171557 BRAID PATTERN SETTER:ABBY DATE/TIME TRANSCRIBED:10/14/171557 CONFIDENTIAL, DO NOT COPY WITHOUT APPROPRIATE AUTHORIZATION. <Electronically signed in Other Vendor System> SIGNED BY: Jay Hua MD 10/14/17 1603 Initial ED EKG: normal sinus rhythm, ABN T WAVES LATERAL LEADS Prior EKG: unchanged (Minesh Glasgow) Departure Departure Disposition: STILL A PATIENT Condition: Stable Clinical Impression Primary Impression: Symptomatic anemia Secondary Impressions: Acute kidney injury Referrals: Jessica Sifuentes APRN (PCP/Family) Departure Forms: Customer Survey General Discharge Information Admission Note Spoke With: Salvador Garcia MD Documentation of Exam: Documentation of any treatments & extenuating circumstances including Concerns Regarding Discharge (functional status, medication knowledge or non-compliance, living conditions, etc.) that warrant an admission rather than observation: [ Transfusion, serial labs, monitoring of vital signs, nephrology consult, neurology consult, cardiology consult, medication adjustment] (Minesh Glasgow) PA/ENTERPRISE APPLICATION DEVELOPER Co-Sign Statement Statement: ED Attending supervision documentation- [] I saw and evaluated the patient. I have also reviewed all the pertinent lab results and diagnostic results. I agree with the findings and the plan of care as documented in the PA's/ENTERPRISE APPLICATION DEVELOPER's documentation. [X] I have reviewed the ED Record and agree with the PA's/ENTERPRISE APPLICATION DEVELOPER's documentation. [] Additions or exceptions (if any) to the PAs/ENTERPRISE APPLICATION DEVELOPER's note and plan are summarized below: [] (Salas WOMACK,Nereida) Critical Care Note Critical Care Note Critical Care Time: non-applicable (Minesh Glasgow) Documentation of Exam: Documentation of any treatments & extenuating circumstances including Concerns Regarding Discharge (functional status, medication knowledge or non-compliance, living conditions, etc.) that warrant an admission rather than observation: [ Transfusion, serial labs, monitoring of vital signs, nephrology consult, neurology consult, cardiology consult, medication adjustment] Critical Care Note Critical Care Note Critical Care Time: non-applicable
[2017-10-14 15:01] LABS: PT 12.7 SEC (9.4-12.5); PTT 30 SEC (25-37)
--- NOTE | 2017-10-14 16:03 | RADIOLOGY REPORT ---
EXAMINATION: XR PORTABLE CHEST CLINICAL INFORMATION: Congestive heart failure. Pneumonia. Weakness. COMPARISON: Chest CT 04/13/2017 TECHNIQUE: Portable frontal view of the chest was obtained. FINDINGS: Low lung volumes. There is diffuse coarse interstitial prominence. No focal consolidation or mass. Heart size upper limits of normal. Aortic arch is calcified. No pleural effusion or pneumothorax. No acute osseous abnormality. IMPRESSION: There is diffuse coarse interstitial prominence. This can be seen acutely with bronchiolitis or interstitial pneumonitis, chronically with chronic bronchitis or reactive airways disease.
--- NOTE | 2017-10-14 20:03 | History & Physical ---
General Information and HPI Allergies/Medications Allergies: Coded Allergies: No Known Allergies (06/22/16) Home Med list Albuterol Sulfate (Proair Hfa) 90 MCG HFA.AER.AD 2 PUF INH Q4-6 PRN PRN ASTHMA (Reported) Amlodipine Besylate/Benazepril (Lotrel 10-40 MG Capsule) 10 MG-40 MG CAPSULE 1 CAP PO DAILY HTN (Reported) Aripiprazole (Abilify) 15 MG TABLET 1 TAB PO DAILY BIPOLAR (Reported) Aspirin (Aspirin*) 81 MG TAB.CHEW 1 TAB PO DAILY CAD (Reported) Atorvastatin Calcium (Lipitor) 40 MG TABLET 1 TAB PO QHS CHOLESTEROL ( Reported) Chlorthalidone 25 MG TABLET 1 TAB PO DAILY HTN (Reported) Clopidogrel Bisulfate (Clopidogrel) 75 MG TABLET 1 TAB PO DAILY CAD (Reported ) Fluphenazine HCl 5 MG TABLET 1 TAB PO BID MENTAL HEALTH (Reported) Gabapentin (Neurontin) 800 MG TABLET 1 TAB PO BID NEUROPATHY (Reported) 1100 MG IN AM AND 800 MG IN PM Metoprolol Succinate 100 MG TAB.ER.24H 1 TAB PO DAILY HTN (Reported) [place]-3 Acid Ethyl Esters (Lovaza) 1 GRAM CAPSULE 2 CAP PO BID CHOLESTEROL ( Reported) Pantoprazole Sodium (Protonix) 40 MG TABLET. 1 TAB PO DAILY GERD (Reported) Past History Travel History Traveled to [place] past 21 day No Medical History Neurological: NONE EENT: NONE Cardiovascular: hypertension, hyperlipidemia Respiratory: NONE Gastrointestinal: NONE Hepatic: NONE Renal: NONE Musculoskeletal: NONE Psychiatric: MOOD SWINGS Endocrine: diabetes Blood Disorders: anemia Cancer(s): bladder cancer POWDER MONKEY/Reproductive: NONE Surgical History Surgical History: non-contributory Past Family/Social History Psychosocial History ETOH Use: denies use Illicit Drug Use: denies illicit drug use Core Measures/Misc (04/25) Cerebrovascular Accident CVA/TIA Diagnosis: No Sepsis (View protocol) Sepsis Present: No
[2017-10-14 22:26] VITALS: BP 110/70
--- NOTE | 2017-10-14 22:59 | History & Physical ---
Syl WOMACK,Stacy 10/14/17 3725: General Information and HPI MD Statement: I have seen and personally examined LYN TELLEZ and documented this H&P. The patient is a 66 year old M who presented with a patient stated chief complaint of symptomatic anemia Source of Information: patient, family, old records Exam Limitations: no limitations History of Present Illness: This is a 66-year-old male with a past medical history of hypertension, hyperlipidemia, neuropathy, GERD, CAD with 2 stents placed 1 month ago, currently on dual antiplatelet therapy, transitional cell renal carcinoma diagnosed in late 2016, currently not yet treated, diabetes, that was sent in from his PCPs office for a hemoglobin of 6.3. The patient was admitted here back in April 2017 for hematuria, found to have filling defect in the left kidney on CT/IVP, had cystoscopy, left pyelogram, left ureteroscopy with renal pelvic biopsy, bladder biopsy and ureteral stent insertion. Biopsy showed transitional cell carcinoma. Patient was again admitted here in September for gross hematuria with renal scan showing 70% renal function on the left kidney secondary to transitional cell kidney mass and 30% on the right secondary to atrophy. Option of left nephroureterectomy was discussed realizing high probability that patient would require dialysis postop. Patient shows conservative treatment and was to have further workup in November to determine if the size of the kidney mass has grown. He has had no treatment thus far including radiation or chemotherapy. The patient states that prior to coming here, he felt weakness, fatigue, dizziness, and was pale. He states that he has had continuous hematuria for the past 2 months with brown urine, no other urinary symptoms. He follows up with his PCP for weekly CBCs. The patient 1 month ago had 3 drug-eluting stents placed and is on dual antiplatelet therapy. The patient follows with die casting machine operator Dr. Power He denies any chest pain, shortness of breath, palpitations. He also denies any headache, vision change, abdominal or back pain, melena, hematochezia, extremity edema. The patient has a visiting nurse that helps with his medications. The patient has a long history of tobacco use, 1-2 packs per day for 40 years, currently still smokes but not daily. He does not drink or use any illicit drugs. Allergies/Medications Allergies: Coded Allergies: No Known Allergies (06/22/16) Home Med list Albuterol Sulfate (Proair Hfa) 90 MCG HFA.AER.AD 2 PUF INH Q4-6 PRN PRN ASTHMA (Reported) Amlodipine Besylate/Benazepril (Lotrel 10-40 MG Capsule) 10 MG-40 MG CAPSULE 1 CAP PO DAILY HTN (Reported) Aripiprazole (Abilify) 15 MG TABLET 1 TAB PO DAILY BIPOLAR (Reported) Aspirin (Aspirin*) 81 MG TAB.CHEW 1 TAB PO DAILY CAD (Reported) Atorvastatin Calcium (Lipitor) 40 MG TABLET 1 TAB PO QHS CHOLESTEROL ( Reported) Chlorthalidone 25 MG TABLET 1 TAB PO DAILY HTN (Reported) Clopidogrel Bisulfate (Clopidogrel) 75 MG TABLET 1 TAB PO DAILY CAD (Reported ) Ferrous Sulfate 325 MG (65 MG IRON) TABLET 1 TAB PO DAILY anemia (Reported) Fluphenazine HCl 5 MG TABLET 1 TAB PO BID MENTAL HEALTH (Reported) Gabapentin (Neurontin) 800 MG TABLET 1 TAB PO BID NEUROPATHY (Reported) 1100 MG IN AM AND 800 MG IN PM Metoprolol Succinate 100 MG TAB.ER.24H 1 TAB PO DAILY HTN (Reported) [place]-3 Acid Ethyl Esters (Lovaza) 1 GRAM CAPSULE 2 CAP PO BID CHOLESTEROL ( Reported) Pantoprazole Sodium (Protonix) 40 MG TABLET.DR 1 TAB PO DAILY GERD (Reported) Compliance With Home Meds: GOOD Past History Travel History Traveled to [place] past 21 day No Medical History Blood Transfusion Hx: Yes Neurological: NONE EENT: NONE Cardiovascular: hypertension, hyperlipidemia Respiratory: NONE Gastrointestinal: NONE Hepatic: NONE Renal: NONE Musculoskeletal: NONE Psychiatric: MOOD SWINGS Endocrine: diabetes Blood Disorders: anemia Cancer(s): bladder cancer DINING ROOM TABLES SET UP ATTENDANT/Reproductive: NONE Isolation History: Standard Surgical History Surgical History: non-contributory Past Family/Social History Psychosocial History Where do you live? Home Smoking Status: Current Some Day Smoker ETOH Use: denies use Illicit Drug Use: denies illicit drug use Review of Systems Review of Systems Constitutional: Reports: weakness. EENTM: Reports: no symptoms. Cardiovascular: Reports: no symptoms. Respiratory: Reports: no symptoms. GI: Reports: no symptoms. Genitourinary: Reports: hematuria. Musculoskeletal: Reports: no symptoms. Skin: Reports: no symptoms. Neurological/Psychological: Reports: no symptoms. Hematologic/Endocrine: Reports: bleeding. Immunologic/Allergic: Reports: no symptoms. All Other Systems: Reviewed and Negative Exam & Diagnostic Data Last 24 Hrs of Vital Signs/I&O Vital Signs Date Time Temp Pulse Resp B/P B/P Pulse O2 O2 Flow FiO2 Mean Ox Delivery Rate 10/14 2225 98.1 82 20 110/70 92 Room Air 10/14 2208 92 Room Air 10/14 2012 98.2 83 20 145/68 96 Room Air 10/14 1815 98.5 74 20 149/66 99 Room Air 10/14 1745 98.0 76 18 150/68 96 Room Air 10/14 1610 97.9 72 18 127/71 97 Room Air 10/14 1555 98.4 66 18 141/65 97 Room Air 10/14 1408 97.9 68 20 127/56 95 Room Air Intake & Output 10/15 0800 10/15 0000 10/14 1600 Intake Total 0 Output Total 300 Balance -300 0 Intake, Oral 0 Output, Urine 300 Patient 208 lb 206 lb Weight Weight Bed scale Reported by Patient Measurement Method Physical Exam General Appearance Alert, Oriented X3, Cooperative, No Acute Distress Skin No Rashes, No Breakdown, No Significant Lesion Skin Temp/Moisture Exam: Warm/Dry Sepsis Skin Exam (color): Normal for Ethnicity HEENT Atraumatic, PERRLA, EOMI, Mucous Membr. moist/pink Neck Supple, No JVD Cardiovascular Regular Rate, Normal S1, Normal S2, Gallops, left lower sternal border 2/6 murmur systolic Lungs Clear to Auscultation, Normal Air Movement Abdomen Normal Bowel Sounds, Soft, No Tenderness, No Hepatospenomegaly, No Masses, no cva tenderness Neurological Normal Speech Extremities No Clubbing, No Cyanosis, No Edema, Normal Pulses, No Tenderness/ Swelling Vascular Normal Pulses, Pulses Symmetrical Sepsis Peripheral Pulse Location: Radial Sepsis Peripheral Pulse Exam: Normal Sepsis Cap Refill Exam: <2 Sec Last 24 Hrs of Labs/Jose: Laboratory Tests 10/15/17 0020: Troponin I Cancelled 10/14/17 1930: Urine Color BLDY H, Urine Clarity TURBD H, Urine pH 6.0, Ur Specific [place] 1.025, Urine Protein >=300 H, Urine Ketones NEG, Urine Nitrite NEG, Urine Bilirubin NEG, Urine Urobilinogen 1.0, Ur Leukocyte Esterase TRACE H, Ur Microscopic SEDIMENT EXAMINED, Urine RBC PACKD H, Urine WBC 3-5 H, Ur Epithelial Cells RARE, Urine Bacteria FEW H, Urine Hemoglobin LARGE H, Urine Glucose NEG 10/14/17 1415: Anion Gap 14, Estimated GFR 32 L, BUN/Creatinine Ratio 15.7, Glucose 123 H, Calcium 9.7, Iron 46 L, TIBC 508 H, Ferritin 5.6 L, Total Bilirubin 0.3, AST 26, ALT 38, Alkaline Phosphatase 73, Troponin I 0.02, Total Protein 7.3, Albumin 4.3, Globulin 3.0, Albumin/Globulin Ratio 1.4, Vitamin B12 412, Folate 18.8, TSH 0.737, PT 12.7 H, INR 1.16, APTT 30, CBC w Diff NO MAN DIFF REQ, RBC 2.54 L, MCV 75.9 L, MCH 24.7 L, MCHC 32.5 L, RDW 18.2 H, MPV 7.7, Gran % 66.0, Lymphocytes % 22.4, Monocytes % 7.1, Eosinophils % 3.7, Basophils % 0.8, Absolute Granulocytes 3.7, Absolute Lymphocytes 1.2, Absolute Monocytes 0.4, Absolute Eosinophils 0.2, Absolute Basophils 0 Microbiology 10/14 1929 URINE ROUT: Urine Culture - RECD Assessment/Plan Assessment: This is a 66-year-old male with a past medical history of hypertension, hyperlipidemia, neuropathy, GERD, CAD with 2 stents placed 1 month ago, currently on dual antiplatelet therapy, transitional cell renal carcinoma diagnosed in late 2016, not yet treated, diabetes, that was sent in from his PCPs office for symptomatic anemia. The patient was diagnosed with transitional cell renal carcinoma in his left kidney in the fall and was last admitted to for continued hematuria and anemia one month ago. He was found to have only 70% of renal function on the left and 30% of renal function on the right. Nephrectomy was considered but patient deferred as he would likely require dialysis. The patient is to follow-up with his urologist in November for a definitive decision on next steps in treatment. Currently he continues to bleed and has weakness, fatigue, dizziness and pallor of the skin. He reportedly did mention he had shortness of breath on exertion to the PA down in the ED but denies any soreness of breath during our interview. The patient did have 3 drug -eluting stents placed 1 month ago, denies any chest pain. In the ED, vital signs are stable. Labs show hemoglobin of 6.3, MCV 75.9, RDW 18.2, WBC 5.5, platelets 224, BUN 33, creatinine 2.1, 1.7 during his last admission, INR 1.16, PTT 30, troponin negative. UA is positive for blood and few bacteria and trace leukocyte esterase. Chest x-ray shows diffuse coarse interstitial prominence suggestive of acute bronchiolitis or interstitial pneumonitis or chronic bronchitis. EKG showed normal sinus rhythm at a rate of 67 with a QTC of 423 and T-wave inversions unchanged since last time. Plan Symptomatic anemia: Microcytic with an increased RDW secondary to acute urological bleed. -Patient transfused 2 units of blood -Follow up CBC in the morning -Continue dual antiplatelet therapy with Plavix 75 mg daily and aspirin 81 mg daily as patient recently had drug-eluting stents placed -Cardiology consult is deferred for now but consult if increased/uncontrolled bleeding -Guaiac all stools -Follow up EKG and troponins 1 -Continue ferrous sulfate which patient takes outpatient Hematuria secondary to renal cell carcinoma: Patient's hematuria is increased due to his Plavix and aspirin. Differential could include urinary tract infection although there is no real evidence of this on UA. Additionally the cancer could've spread to include other parts of the urological tract that are now bleeding. Patient was most recently evaluated by in September of this year so likely no new changes. Patient could have renal stone, less likely without pain. -Patient has refused White -Renal ultrasound in morning -Bladder scan done which shows 0 mL's after voiding -Urine culture -Urology consult, patient last saw Dr. Alfredo one month ago here Chronic medical problems -Lipitor 40 mg daily for hyperlipidemia -Metoprolol 100 mg daily, amlodipine 10 mg daily, and chlorthalidone 25 mg daily for hypertension -Gabapentin 600 mg twice a day for his neuropathy -Fluphenazine 5 mg twice a day and Abilify 15 mg daily for mood disorder -Omeprazole 40 mg daily for GERD -Accu checks 3 times a day/at bedtime for diabetes Consistent carbohydrate 3 diet Full code DVT prophylaxis with Plavix As Ranked By This Provider Problem List: 1. Acute kidney injury 2. Symptomatic anemia 3. Renal cancer 4. Anemia Core Measures/Misc (04/25) Acute Coronary Syndrome ACS Diagnosis: No Congestive Heart Failure Congestive Heart Failure Diagnosis No Cerebrovascular Accident CVA/TIA Diagnosis: No VTE (View Protocol) VTE Risk Factors Acute Medical Illness No Mechanical VTE Prophylaxis d/t N/A MechProphylax Ordered No VTE Pharm Prophylaxis d/t Bleeding (Active) Sepsis (View protocol) Sepsis Present: No Constantino Fostre 10/14/17 7306: Resident Review Statement Resident Statement: examined this patient, discussed with international logistics analyst, agreed with international logistics analyst, discussed with family, discussed with nursing, reviewed images Other Findings: is a 66 yo man with PMHx. of HTN, DM, CK D, CAD S/P DEIDRE August 2017 is currently on dual antiplatelet therapy, history of transitional cell carcinoma left renal pelvis presented to emergency department with symptomatic anemia, he received 2 units of blood transfusion, will check a CBC at a.m., will continue his home medications, will check renal ultrasound, bedside bladder scan , will check another set of troponin and EKG, urology consult, consider cardiology consult, DVT prophylaxis with Alps, he is a full code JoseSalvador saba 10/15/17 0351: Attending MD Review Statement Attending Statement Attending MD Statement: examined this patient, discuss w/resident/PA/PROTOZOOLOGY TEACHER, agreed w/resident/PA/PROTOZOOLOGY TEACHER, reviewed EMR data (avail), reviewed images, amended to note Attending Assessment/Plan: CC: Low hemoglobin PMH: HTN, DM, CK D, CAD S/P DEIDRE August 2017, history of transitional cell carcinoma left renal pelvis Patient was sent to to ER for low hemoglobin. Patient has been having hematuria and low hemoglobin secondary to transitional cell carcinoma, currently on dual antiplatelet agent after DEIDRE in August 2017. Patient had been following up with primary care physician weekly for hemoglobin checks, his hemoglobin dropped from 6.7-6.3 in last 4 days. Patient has been feeling weak, lethargic and looked pale to his physician, that's why hemoglobin was repeated. Other than the symptoms patient denies chest pain, chest tightness, palpitations, dizziness, loss of consciousness, body swelling, abdominal pain, abdominal distention, blood in stool, black colored stool, nausea or vomiting. He continues to have dark colored urine. History is limited as patient is not very cooperative, does not want to stay in hospital. Vitals: Afebrile, pulse in 60s, RR 20, blood pressure 127/56, saturating well on room air. On exam: A O 3, cooperative, no acute distress, neck supple, JVD normal, no lymphadenopathy, mucosa moist, no focal neurological deficit, no dependent edema , no obvious skin rashes or inflammation CVS: S1-S2, RRR. RS: Clear to auscultate bilaterally. Abdomen: Soft, NT, ND, bowel sounds present. CXR: There is diffuse coarse interstitial prominence. This can be seen acutely with bronchiolitis or interstitial pneumonitis, chronically with chronic bronchitis or reactive airways disease. Assessment and plan 66 year old male with past medical history significant for HTN, DM, CKD, CAD S/P DEIDRE August 2017, history of transitional cell carcinoma left renal pelvis, persistent hematuria, was sent to ER by primary care physician for drop in hemoglobin from 6.7 to 6.3 in last 4 days. Patient has symptoms of weakness, fatigue but denies any chest pain, chest tightness, abdominal pain, black colored stool or bright red blood in stool. His anemia secondary to persistent hematuria which is secondary to transitional cell carcinoma of left renal pelvis and patient being on dual antiplatelet agent for DEIDRE in August 2017. Patient follows up with [facility] and has been refusing left nephrectomy because of CKD in right kidney, as he may become dialysis dependent. Vitals and examination unremarkable except dark-colored urine. He has significant microcytic anemia and elevated creatinine from 1.2 and month of September to 2.1. Urinary obstruction should be ruled out with persistent hematuria as there might be clots for ARETHA. Patient refused to get admitted initially, later on he spoke to his sister and agreed for admission, does not want to stay for more than 1 day. Patient received 2 units PRBC in ER. + Acute on chronic anemia secondary to blood loss + Acute kidney injury + History of transitional cell carcinoma left renal pelvis + History of HTN, DM, CKD, CAD S/P DEIDRE August 2017 - Admit to general medicine - Complete 2 units PRBC transfusion - Repeat H&H in a.m. - Bladder scan - Renal ultrasound - Serial troponins and ECGs - Urology consult - Continue dual antiplatelet agent - Confirm his medications in the morning to resume - DVT prophylaxis with Alps only - I doubt his competency about decision-making, family was not available bedside , should be discussed with family in morning and psych evaluation should be obtained for competency if required
[2017-10-15] MEDS ORDERED: FERROUS SULFAT325 M3 PO (00:42)
--- NOTE | 2017-10-15 03:53 | Admission Certification ---
Admission Certification Certification Statement - As attending physician, I certify that at the time of - admission, based on clinical presentation, severity of - symptoms, need for further diagnostic testing and - therapeutic interventions, and risk of adverse outcomes - without in-hospital treatment, in my clinical assessment, - this patient requires an acute hospital stay for a minimum - of two nights or longer. I have also considered psychsocial - factors such as support system, advanced age, financial - issues, cognitive issues, and failed out-patient treatments, - past re-admission history, safety of patient, and lack of - compliance as applicable. Specific rationale supporting this admission is: acute on chronic anemia secondary to blood loss, he matches area secondary to transitional cell carcinoma of left renal pelvis, acute kidney injury
[2017-10-15 07:05] VITALS: BP 153/85
--- NOTE | 2017-10-15 07:11 | PN- Housestaff ---
See Addendum Subjective Follow-up For: Blood loss anemia 2/2 malignancy Subjective: No overnight events. He was asking to leave this morning. Says his sister in law Jennifer makes medical decisions for him. He feels better after receiving the blood transfusion with no further weakness or fatigue. He has chronic hematuria. No CP, SOB, urinary pain, abd pain, or other issues. Review of Systems Constitutional: Reports: see HPI. EENTM: Reports: no symptoms. Cardiovascular: Reports: no symptoms. Respiratory: Reports: no symptoms. Gastrointestinal: Reports: no symptoms. Genitourinary: Reports: see HPI. Musculoskeletal: Reports: no symptoms. Skin: Reports: no symptoms. Neurological/Psychological: Reports: no symptoms. Hematologic/Endocrine: Reports: no symptoms. Immunologic/Allergic: Reports: no symptoms. Objective Last 24 Hrs of Vital Signs/I&O Vital Signs Date Time Temp Pulse Resp B/P B/P Pulse O2 O2 Flow FiO2 Mean Ox Delivery Rate 10/15 07 97.9 82 18 153/85 98 Room Air 10/15 0000 92 Room Air 10/14 2226 98.1 82 20 110/70 92 Room Air 10/14 2208 92 Room Air 10/14 2012 98.2 83 20 145/68 96 Room Air 10/14 1815 98.5 74 20 149/66 99 Room Air 10/14 1745 98.0 76 18 150/68 96 Room Air 10/14 1610 97.9 72 18 127/71 97 Room Air 10/14 1555 98.4 66 18 141/65 97 Room Air 10/14 1408 97.9 68 20 127/56 95 Room Air Intake & Output 10/15 0800 10/15 0000 10/14 1600 Intake Total 240 0 Output Total 600 300 Balance -360 -300 0 Intake, Oral 240 0 Output, Urine 600 300 Patient 90.775 kg 94.347 kg 93.44 kg Weight Weight Bed scale Bed scale Reported by Patient Measurement Method Physical Exam General Appearance: Alert, Oriented X3, Cooperative, No Acute Distress Cardiovascular: Regular Rate, Normal S1, Normal S2, systolic murmur Lungs: Clear to Auscultation Abdomen: Normal Bowel Sounds, Soft, No Tenderness Extremities: No Edema, Normal Pulses, No Tenderness/Swelling Current Medications: Current Medications Sig/Jacey Start time Last Medication Dose Route Stop Time Status Admin Acetaminophen 975 MG Q8P PRN 10/15 0615 UNVr PO Acetaminophen 650 MG Q6P PRN 10/14 2014 DC PO Albuterol Sulfate 2 PUF Q4-6 PRN PRN 10/15 0045 AC INH Amlodipine Besylate 10 MG DAILY 10/15 1000 AC PO Aripiprazole 15 MG DAILY 10/15 1000 AC PO Aspirin 81 MG DAILY 10/15 1000 AC PO Atorvastatin Calcium 40 MG 2200 10/15 2200 AC PO Chlorthalidone 25 MG DAILY 10/15 999 AC PO Clopidogrel Bisulfate 75 MG DAILY 10/15 1000 AC PO Ferrous Sulfate 325 MG DAILY 10/15 1000 AC PO Fish Oil 1,050 MG BID 10/15 1000 AC PO Fluphenazine HCl 5 MG BID 10/15 1000 AC PO Folic Acid 1 MG DAILY 10/15 999 AC PO Gabapentin 600 MG BID 10/15 1000 AC PO Metoprolol Succinate 100 MG DAILY 10/15 999 AC PO Morphine Sulfate 4 MG Q12P PRN 10/14 2014 AC IV Multivitamins 1 TAB DAILY 10/15 1000 AC PO Omeprazole 40 MG DAILY AC 10/15 0700 AC 10/15 PO 0509 Sodium Chloride 1,000 ML Q13H 10/15 0615 AC 10/15 IV 10/15 1914 0612 Last 24 Hrs of Lab/Jose Results Last 24 Hrs of Labs/Mics: Laboratory Tests 10/15/17 0121: Troponin I Cancelled 10/15/17 0020: Troponin I 0.02 10/14/17 1930: Urine Color BLDY H, Urine Clarity TURBD H, Urine pH 6.0, Ur Specific [place] 1.025, Urine Protein >=300 H, Urine Ketones NEG, Urine Nitrite NEG, Urine Bilirubin NEG, Urine Urobilinogen 1.0, Ur Leukocyte Esterase TRACE H, Ur Microscopic SEDIMENT EXAMINED, Urine RBC PACKD H, Urine WBC 3-5 H, Ur Epithelial Cells RARE, Urine Bacteria FEW H, Urine Hemoglobin LARGE H, Urine Glucose NEG 10/14/17 1415: Anion Gap 14, Estimated GFR 32 L, BUN/Creatinine Ratio 15.7, Glucose 123 H, Calcium 9.7, Iron 46 L, TIBC 508 H, Ferritin 5.6 L, Total Bilirubin 0.3, AST 26, ALT 38, Alkaline Phosphatase 73, Troponin I 0.02, Total Protein 7.3, Albumin 4.3, Globulin 3.0, Albumin/Globulin Ratio 1.4, Vitamin B12 412, Folate 18.8, TSH 0.737, PT 12.7 H, INR 1.16, APTT 30, CBC w Diff NO MAN DIFF REQ, RBC 2.54 L, MCV 75.9 L, MCH 24.7 L, MCHC 32.5 L, RDW 18.2 H, MPV 7.7, Gran % 66.0, Lymphocytes % 22.4, Monocytes % 7.1, Eosinophils % 3.7, Basophils % 0.8, Absolute Granulocytes 3.7, Absolute Lymphocytes 1.2, Absolute Monocytes 0.4, Absolute Eosinophils 0.2, Absolute Basophils 0 Microbiology 10/14 1929 URINE ROUT: Urine Culture - RECD Assessment/Plan Assessment: Mr. Torres is a 66-year-old male with a past medical history of hypertension, hyperlipidemia, neuropathy, GERD, CAD with 2 stents placed 1 month ago, currently on dual antiplatelet therapy, untreated transitional cell renal carcinoma diagnosed in late 2016, diabetes mellitus who was sent in from his PCPs office for symptomatic anemia. Problem list: 1. Acute on chronic blood loss anemia 2. Transitional cell carcinoma 3. Acute kidney injury #Acute on chronic blood loss anemia: Patient has had gross hematuria chronically secondary to malignancy. He received 2 units of packed red blood cells last night and feels better this morning. EKG and troponins have been negative. -CBC every 12H if continues to have gross hematuria -Continue clopidogrel 75 mg daily and aspirin 81 mg daily as patient recently had drug-eluting stents placed -Guaiac all stools -Continue ferrous sulfate -Urine culture #Acute kidney injury: Creatinine on presentation was 2.1. Baseline is 1.0. Today is improved to 1.6. Likely prerenal azotemia in setting of blood loss. -IV fluid hydration -Continue to monitor #Transitional cell carcinoma: Patient has previously refused treatment for this. -Renal ultrasound -Appreciate urology recommendations #Chronic medical problems -Lipitor 40 mg daily for hyperlipidemia -Metoprolol 100 mg daily, amlodipine 10 mg daily, and chlorthalidone 25 mg daily for hypertension -Gabapentin 600 mg twice a day for his neuropathy -Fluphenazine 5 mg twice a day and Abilify 15 mg daily for mood disorder -Omeprazole 40 mg daily for GERD -Accu checks 3 times a day/at bedtime for diabetes DVT prophylaxis with Alps Consistent carbohydrate 3 diet Full code Problem List: 1. Symptomatic anemia Pain Ratin Pain Location: no Pain Goal: Remain pain free Pain Plan: see a/p Tomorrow's Labs & Rationales: cbc
--- NOTE | 2017-10-15 07:34 | PN- Urology ---
Surgical Brief Attending Note Brief Attending Note: Patient known to me. He originally presented with gross hematuria and was found to have a transitional cell ca of the L kidney. His R kidney is atrophic and supplies only 30% of GFR. The patient already has CKD. He is followed by [facility] and [facility]rology. Due to very high risk of needing dialysis after L nephro-ureterectomy he has not been operated on and has been managed conservative. Within the last 2 months he had coronary stents placed and is now on ASA and plavix. His intermittent gross hematuria has gotten worse with the dual antiplatelet therapy. He is now admitted with gross hematuria, symptomatic anemia and a Hct of 19.3 and creatinine of 2.1 (baseline 1.5-1.8). He last saw Dr Montiel at [facility] on 09/28/17. The plan is to continue to manage his symptomatic hematuria conservatively with periodic transfusion until he can come off antiplatelet therapy in about 3 months. If hematuria continues to be significant after that, or if continued conservative management before then is no longer possible then he would require L nephro-ureterectomy and dialysis. Full consult to follow later today
[2017-10-15 08:16] LABS: ABSOLUTE BASOPHIL COUNT 0.1 /CUMM (0.0-0.2); ABSOLUTE EOSINOPHIL COUNT 0.2 /CUMM (0.0-0.7); ABSOLUTE GRANULOCYTE CT 3.4 /CUMM (1.4-6.5); ABSOLUTE MONOCYTE COUNT 0.5 /CUMM (0.10-0.60); BASOPHIL % 1.3 % (0.0-2.0); EOSINOPHIL % 4.1 % (0-5); HEMATOCRIT 22.8 % (42-52); MEAN CORPUSCULAR HGB 26.1 PG (27.0-31.0); MEAN CORPUSCULAR HGB CONC 33.4 G/DL (33.0-37.0); MEAN CORPUSCULAR VOLUME 78.1 FL (80.0-94.0); MEAN PLATELET VOLUME 8.5 FL (7.4-10.4); PLATELET COUNT 194 /CUMM (130-400); RBC DISTRIBUTION WIDTH 17.8 % (11.5-14.5); RED BLOOD CELL CT 2.92 /CUMM (4.70-6.10); WHITE BLOOD CELL COUNT 5.2 /CUMM (4.8-10.8)
[2017-10-15 13:04] VITALS: BP 136/78
--- NOTE | 2017-10-15 16:58 | ULTRASOUND REPORT ---
EXAMINATION: US RETROPERITONEAL COMPLETE (RENAL) CLINICAL INFORMATION: 66-year-old male with history of hematuria and kidney mass. Evaluate for obstruction.. COMPARISON: CT abdomen pelvis 04/06/2017 TECHNIQUE: Real-time imaging of the kidneys and bladder. FINDINGS: RIGHT KIDNEY: 10.0 x 4.4 x 3.1 cm (SAG x AP x TRV). The kidney has a lobulated contour. There is diffuse cortical thinning, unchanged. No calculi or focal parenchymal lesions. No hydronephrosis. LEFT KIDNEY: 13.5 x 7.3 x 5.2 cm (SAG x AP x TRV). The kidney is normal in size, contour, and echogenicity. Renal cortical thickness is normal. There is heterogeneous slightly echogenic material seen within the lower pole calyces which correlate with the previously seen abnormal findings on the CT abdomen pelvis. Findings are likely related to hemorrhage/blood clots and/or underlying urothelial tumor. There is moderate hydronephrosis, the degree appears similar to 04/06/2017. BLADDER: Well-distended and normal. Bilateral ureteral jets are demonstrated. Prevoid bladder volume is 249 mL. Postvoid bladder volume is 11 mL. IMPRESSION: 1. Moderate left-sided hydronephrosis. Compared to the prior study, there is been no significant change in the degree of hydronephrosis. Increased echogenicity in the lower pole calyces likely related to hemorrhage/blood clots. Underlying urothelial tumor is not excluded. 2. Diffuse cortical thinning throughout the right kidney. No right-sided hydronephrosis.
[2017-10-15 19:03] LABS: ABSOLUTE BASOPHIL COUNT 0.1 /CUMM (0.0-0.2); ABSOLUTE EOSINOPHIL COUNT 0.2 /CUMM (0.0-0.7); ABSOLUTE GRANULOCYTE CT 3.5 /CUMM (1.4-6.5); ABSOLUTE LYMPH COUNT 1.4 /CUMM (1.2-3.4); ABSOLUTE MONOCYTE COUNT 0.5 /CUMM (0.10-0.60); BASOPHIL % 1.2 % (0.0-2.0); EOSINOPHIL % 4.1 % (0-5); GRANULOCYTE % 60.8 % (42.2-75.2); HEMATOCRIT 25.1 % (42-52); MEAN CORPUSCULAR HGB 26.4 PG (27.0-31.0); MEAN CORPUSCULAR HGB CONC 33.2 G/DL (33.0-37.0); MEAN CORPUSCULAR VOLUME 79.4 FL (80.0-94.0); MEAN PLATELET VOLUME 8.3 FL (7.4-10.4); PLATELET COUNT 189 /CUMM (130-400); RBC DISTRIBUTION WIDTH 17.4 % (11.5-14.5); RED BLOOD CELL CT 3.16 /CUMM (4.70-6.10); WHITE BLOOD CELL COUNT 5.8 /CUMM (4.8-10.8)
[2017-10-15 21:21] VITALS: BP 140/80
[2017-10-16 06:06] VITALS: BP 156/76
--- NOTE | 2017-10-16 07:37 | Cons- Urology ---
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 He has been managed conservative as L nephro- ureterectomy will likely result in need for dialysis due to his underlying CKD. He recently had coronary stent insertion and is now on antiplatelet therapy which has exacerbated his gross hematuria. The plan is to try to manage his hematuria conservative until 3 months after stent insertion when antiplatelet therapy will be stopped. If bleeding continues at that point then L nephro- uretrectomy and post op dialysis will likely be necessary He was admitted with symptomatic anemia due to Hct of 19 and is now being transfused. Allergies/Medications Allergies: Coded Allergies: No Known Allergies (06/22/16) Home Med List: Albuterol Sulfate (Proair Hfa) 90 MCG HFA.AER.AD 2 PUF INH Q4-6 PRN PRN ASTHMA (Reported) Amlodipine Besylate/Benazepril (Lotrel 10-40 MG Capsule) 10 MG-40 MG CAPSULE 1 CAP PO DAILY HTN (Reported) Aripiprazole (Abilify) 15 MG TABLET 1 TAB PO DAILY BIPOLAR (Reported) Aspirin (Aspirin*) 81 MG TAB.CHEW 1 TAB PO DAILY CAD (Reported) Atorvastatin Calcium (Lipitor) 40 MG TABLET 1 TAB PO QHS CHOLESTEROL ( Reported) Chlorthalidone 25 MG TABLET 1 TAB PO DAILY HTN (Reported) Clopidogrel Bisulfate (Clopidogrel) 75 MG TABLET 1 TAB PO DAILY CAD (Reported ) Ferrous Sulfate 325 MG (65 MG IRON) TABLET 1 TAB PO DAILY anemia (Reported) Fluphenazine HCl 5 MG TABLET 1 TAB PO BID MENTAL HEALTH (Reported) Gabapentin (Neurontin) 800 MG TABLET 1 TAB PO BID NEUROPATHY (Reported) 1100 MG IN AM AND 800 MG IN PM Metoprolol Succinate 100 MG TAB.ER.24H 1 TAB PO DAILY HTN (Reported) [place]-3 Acid Ethyl Esters (Lovaza) 1 GRAM CAPSULE 2 CAP PO BID CHOLESTEROL ( Reported) Pantoprazole Sodium (Protonix) 40 MG TABLET.DR 1 TAB PO DAILY GERD (Reported) Current Medications: Current Medications Sig/Jacey Start time Last Medication Dose Route Stop Time Status Admin Acetaminophen 975 MG Q8P PRN 10/15 0715 AC PO Albuterol Sulfate 2 PUF Q4-6 PRN PRN 10/15 0045 AC INH Amlodipine Besylate 10 MG DAILY 10/15 1000 AC 10/15 PO 1151 Aripiprazole 15 MG DAILY 10/15 1000 AC 10/15 PO 1147 Aspirin 81 MG DAILY 10/15 1000 AC 10/15 PO 1148 Atorvastatin Calcium 40 MG 2200 10/15 2200 AC 10/15 PO 2102 Chlorthalidone 25 MG DAILY 10/15 1000 AC 10/15 PO 1151 Clopidogrel Bisulfate 75 MG DAILY 10/15 1000 AC 10/15 PO 1148 Ferrous Sulfate 325 MG DAILY 10/15 1000 AC 10/15 PO 1148 Fish Oil 1,050 MG BID 10/15 1000 AC 10/15 PO 2102 Fluphenazine HCl 5 MG BID 10/15 1000 AC 10/15 PO 2102 Folic Acid 1 MG DAILY 10/15 1000 AC 10/15 PO 1154 Gabapentin 600 MG BID 10/15 1000 AC 10/15 PO 2102 Metoprolol Succinate 100 MG DAILY 10/15 1000 AC 10/15 PO 1150 Morphine Sulfate 4 MG Q12P PRN 10/14 2014 AC IV Multivitamins 1 TAB DAILY 10/15 1000 AC 10/15 PO 1153 Omeprazole 40 MG DAILY AC 10/15 0700 AC 10/16 PO 0456 Sodium Chloride 1,000 ML Q13H 10/15 0615 DC 10/15 IV 10/15 1914 0612 Past History Medical History Blood Transfusion Hx: Yes Neurological: NONE EENT: NONE Cardiovascular: hypertension, hyperlipidemia Respiratory: NONE Gastrointestinal: NONE Hepatic: NONE Renal: NONE Musculoskeletal: NONE Psychiatric: MOOD SWINGS Endocrine: diabetes Blood Disorders: anemia Cancer(s): bladder cancer LCSW/Reproductive: NONE Surgical History Pertinent Surgical History: non-contributory Psychosocial History Where Do You Live? Home Smoking Status: Current Some Day Smoker ETOH Use: denies use Illicit Drug Use: denies illicit drug use Exam & Diagnostic Data Vital Signs and I&O Vital Signs Date Time Temp Pulse Resp B/P B/P Pulse O2 O2 Flow FiO2 Mean Ox Delivery Rate 10/16 605 97.0 70 20 156/76 97 10/15 2120 97.8 83 20 140/80 93 10/15 1304 98.2 77 18 136/78 96 Room Air 10/15 1151 84 148/80 10/15 1150 84 148/80 Intake & Output 10/16 0810/16 0000 10/15 1600 10/15 0800 10/15 0000 10/14 1600 Intake Total 832 125 2697 240 0 Output Total 600 1000 300 Balance 240 705 850 -760 -300 0 Intake, Blood 350 Product Intake, IV 225 600 Intake, Oral 240 480 500 240 0 Number 1 Bowel Movements Output, Urine 600 1000 300 Patient 212 lb 200 lb 208 lb 206 lb Weight Weight Bed scale Bed scale Bed scale Reported by Patient Measurement Method No acute distress Back: no CVA tenderness Abd: soft and non tender Laboratory Tests 10/15 1824 Hematology CBC w Diff NO MAN DIFF REQ WBC (4.8 - 10.8 /CUMM) 5.8 RBC (4.70 - 6.10 /CUMM) 3.16 L Hgb (14.0 - 18.0 G/DL) 8.3 L Hct (42 - 52 %) 25.1 L MCV (80.0 - 94.0 FL) 79.4 L MCH (27.0 - 31.0 PG) 26.4 L MCHC (33.0 - 37.0 G/DL) 33.2 RDW (11.5 - 14.5 %) 17.4 H Plt Count (130 - 400 /CUMM) 189 MPV (7.4 - 10.4 FL) 8.3 Gran % (42.2 - 75.2 %) 60.8 Lymphocytes % (20.5 - 51.1 %) 24.9 Monocytes % (1.7 - 9.3 %) 9.0 Eosinophils % (0 - 5 %) 4.1 Basophils % (0.0 - 2.0 %) 1.2 Absolute Granulocytes (1.4 - 6.5 /CUMM) 3.5 Absolute Lymphocytes (1.2 - 3.4 /CUMM) 1.4 Absolute Monocytes (0.10 - 0.60 /CUMM) 0.5 Absolute Eosinophils (0.0 - 0.7 /CUMM) 0.2 Absolute Basophils (0.0 - 0.2 /CUMM) 0.1 Assessment/Plan Assessment/Plan Imp: 1. Gross hematuria due to transitional cell ca in L kidney 2. Atrophic R kidney and CKD Plan: 1. Will continue to manage gross hematuria conservatively if possible 2. Transfuse as needed 3. If gross hematuria does not improve when antiplatelet therpay can be stopped then L nephro-ureterectomy and post op dialysis may be necessary Consult Acknowledgment - Thank you for your consult request.
--- NOTE | 2017-10-16 08:12 | PN- Housestaff ---
Deborah WOMACK,Darian 10/16/17811: Subjective Follow-up For: Acute on chronic anemia secondary to blood loss with hematuria Subjective: Patient was seen and examined at bedside. He is resting comfortably. He had no acute events overnight. He continues to have hematuria but reports that it has become event executive shade of pink. Tolerated blood transfusion yesterday well. Patient and his sister makes medical decisions for him would like patient to be discharged today. He denies any lightheadedness, dizziness, loss of consciousness, chest pain, shortness of breath, dysuria, abdominal pain. Review of Systems Constitutional: Denies: chills, fever. EENTM: Reports: no symptoms. Cardiovascular: Reports: no symptoms. Respiratory: Reports: no symptoms. Gastrointestinal: Reports: no symptoms. Genitourinary: Reports: see HPI, hematuria. Denies: dysuria, frequency. Musculoskeletal: Reports: no symptoms. Objective Last 24 Hrs of Vital Signs/I&O Vital Signs Date Time Temp Pulse Resp B/P B/P Pulse O2 O2 Flow FiO2 Mean Ox Delivery Rate 10/16 605 97.0 70 20 156/76 97 10/15 2121 97.8 83 20 140/80 93 10/15 1304 98.2 77 18 136/78 96 Room Air 10/15 1151 84 148/80 10/15 1150 84 148/80 Intake & Output 10/16 1600 10/16 0800 10/16 0000 Intake Total 240 705 Output Total Balance 240 705 Intake, IV 225 Intake, Oral 240 480 Patient 212 lb Weight Weight Bed scale Measurement Method Physical Exam General Appearance: Alert, Oriented X3, Cooperative, No Acute Distress Skin Temp/Moisture Exam: Warm/Dry Cardiovascular: Regular Rate, Normal S1, Normal S2, systolic murmur Lungs: Clear to Auscultation, Normal Air Movement Abdomen: Normal Bowel Sounds, Soft, No Tenderness Neurological: Normal Speech, Normal Tone, Sensation Intact Extremities: No Clubbing, No Cyanosis, No Edema Current Medications: Current Medications Sig/Jacey Start time Last Medication Dose Route Stop Time Status Admin Acetaminophen 975 MG Q8P PRN 10/15 0715 AC PO Albuterol Sulfate 2 PUF Q4-6 PRN PRN 10/15 0045 AC INH Amlodipine Besylate 10 MG DAILY 10/15 1000 AC 10/15 PO 1151 Aripiprazole 15 MG DAILY 10/15 1000 AC 10/15 PO 1147 Aspirin 81 MG DAILY 10/15 1000 AC 10/15 PO 1148 Atorvastatin Calcium 40 MG 2200 10/15 2200 AC 10/15 PO 2102 Chlorthalidone 25 MG DAILY 10/15 1000 AC 10/15 PO 1151 Clopidogrel Bisulfate 75 MG DAILY 10/15 1000 AC 10/15 PO 1148 Ferrous Sulfate 325 MG DAILY 10/15 1000 AC 10/15 PO 1148 Fish Oil 1,050 MG BID 10/15 1000 AC 10/15 PO 210 Fluphenazine HCl 5 MG BID 10/15 1000 AC 10/15 PO 2102 Folic Acid 1 MG DAILY 10/15 1000 AC 10/15 PO 1154 Gabapentin 600 MG BID 10/15 1000 AC 10/15 PO 2102 Metoprolol Succinate 100 MG DAILY 10/15 1000 AC 10/15 PO 1150 Morphine Sulfate 4 MG Q12P PRN 10/14 2014 AC IV Multivitamins 1 TAB DAILY 10/15 1000 AC 10/15 PO 1153 Omeprazole 40 MG DAILY AC 10/15 0700 AC 10/16 PO 0456 Sodium Chloride 1,000 ML Q13H 10/15 0615 DC 10/15 IV 10/15 1914 0612 Last 24 Hrs of Lab/Jose Results Last 24 Hrs of Labs/Mics: Laboratory Tests 10/16/17 0730: Sodium Pending, Potassium Pending, Chloride Pending, Carbon Dioxide Pending, Anion Gap Pending, BUN Pending, Creatinine Pending, BUN/Creatinine Ratio Pending , CBC w Diff Pending, WBC Pending, RBC Pending, Hgb Pending, Hct Pending, MCV Pending, MCH Pending, MCHC Pending, RDW Pending, Plt Count Pending, MPV Pending 10/15/17 1824: CBC w Diff NO MAN DIFF REQ, RBC 3.16 L, MCV 79.4 L, MCH 26.4 L, MCHC 33.2, RDW 17.4 H, MPV 8.3, Gran % 60.8, Lymphocytes % 24.9, Monocytes % 9.0, Eosinophils % 4.1, Basophils % 1.2, Absolute Granulocytes 3.5, Absolute Lymphocytes 1.4, Absolute Monocytes 0.5, Absolute Eosinophils 0.2, Absolute Basophils 0.1 Assessment/Plan Assessment: Mr. Torres is a 66-year-old male with a past medical history of hypertension, hyperlipidemia, neuropathy, GERD, CAD with 2 stents placed 1 month ago, currently on dual antiplatelet therapy, untreated transitional cell renal carcinoma diagnosed in late 2016, diabetes mellitus who was sent in from his PCPs office for symptomatic anemia. Problem list: 1. Acute on chronic blood loss anemia 2. Transitional cell carcinoma 3. Acute kidney injury #Acute on chronic blood loss anemia: Patient has had gross hematuria chronically secondary to malignancy. He received 2 units of packed red blood cells 10/14/17 and 1 unit on 10/15/17. H/H has improved and patient and family members are requesting discharge today. -Patient is asymptomatic and stable for discharge -He was instructed to follow-up with his PCP and urologist after discharge as soon as possible and to follow-up for blood work on 10/18/16 check a CBC. -Continue clopidogrel 75 mg daily and aspirin 81 mg daily as patient recently had drug-eluting stents placed -Guaiac all stools -Continue ferrous sulfate -Urine culture #Acute kidney injury: Creatinine on presentation was 2.1. Baseline is 1.0. Today is improved to 1.3. Likely prerenal azotemia in setting of blood loss. -As a ARETHA continues to improve, patient is stable for discharge #Transitional cell carcinoma: Patient has previously refused treatment for this. -Renal ultrasound showed no significant change from previous studies -Appreciate urology recommendations #Chronic medical problems -Lipitor 40 mg daily for hyperlipidemia -Metoprolol 100 mg daily, amlodipine 10 mg daily, and chlorthalidone 25 mg daily for hypertension -Gabapentin 600 mg twice a day for his neuropathy -Fluphenazine 5 mg twice a day and Abilify 15 mg daily for mood disorder -Omeprazole 40 mg daily for GERD -Accu checks 3 times a day/at bedtime for diabetes DVT prophylaxis with Alps Consistent carbohydrate 3 diet Full code Problem List: 1. Renal cancer 2. Anemia 3. Hematuria Pain Ratin Pain Location: none Pain Goal: Remain pain free Pain Plan: pain pathway Tomorrow's Labs & Rationales: none Maura Darby MD 10/16/17 1441: Attending MD Review Statement Attending Statement Attending Statement: examined this patient, discuss w/resident/PA/[employer], agreed w/resident/PA/[employer], reviewed EMR data (avail) Attending Assessment/Plan: 66M PMH HTN, DM, CKD, CAD S/P DEIDRE August 2017, history of transitional cell carcinoma left renal pelvis, persistent hematuria presenting with dizziness and lightheadedness due to symptomatic anemia and found to have a Hgb drop, received 2 units pRBC with improvement in symptoms. Patient feels well today, back to baseline. He continues to have gross hematuria. Hgb is stable today. 1. Symptomatic anemia secondary to chronic blood loss 2. Gross hematuria secondary to transitional cell carcinoma of the left kidney 3. CAD s/p DEIDRE Plan - Stable for discharge - Outpatient CBC in 2 days - Transfuse to Hgb >8 due to CAD - Instructed to return to hospital if symptomatic or if hematuria worsens - Outpatient urology follow up - Continue home meds, including DAPT
[2017-10-16 08:42] LABS: ABSOLUTE BASOPHIL COUNT 0.1 /CUMM (0.0-0.2); ABSOLUTE EOSINOPHIL COUNT 0.3 /CUMM (0.0-0.7); ABSOLUTE GRANULOCYTE CT 5.3 /CUMM (1.4-6.5); ABSOLUTE LYMPH COUNT 1.7 /CUMM (1.2-3.4); ABSOLUTE MONOCYTE COUNT 0.7 /CUMM (0.10-0.60); BASOPHIL % 1.1 % (0.0-2.0); EOSINOPHIL % 4.2 % (0-5); GRANULOCYTE % 65.9 % (42.2-75.2); HEMATOCRIT 27.4 % (42-52); MEAN CORPUSCULAR HGB 26.4 PG (27.0-31.0); MEAN CORPUSCULAR HGB CONC 32.9 G/DL (33.0-37.0); MEAN CORPUSCULAR VOLUME 80.2 FL (80.0-94.0); MEAN PLATELET VOLUME 8.6 FL (7.4-10.4); PLATELET COUNT 190 /CUMM (130-400); RBC DISTRIBUTION WIDTH 18.4 % (11.5-14.5); RED BLOOD CELL CT 3.42 /CUMM (4.70-6.10); WHITE BLOOD CELL COUNT 8.1 /CUMM (4.8-10.8)
[2017-10-16 10:36] VITALS: BP 124/70
--- NOTE | 2017-10-16 13:50 | Patient Discharge Instructions ---
Discharge Instructions General Discharge Information You were seen/treated for: Acute blood loss anemia Special Instructions: Take all medications as directed. Follow-up with your primary care physician within 2 days of discharge. Get your CBC checked at a laboratory on 10/18/16. Follow-up with your urologist within 2 days of discharge. If you should experieince lightheadedness, dizziness, loss of consciousness with chest pain, shortness of breath call your doctor immediately or return to the ER Acute Coronary Syndrome Inclusion Criteria At DC or during hospital stay patient has or had the following: ACS DIAGNOSIS No Discharge Core Measures Meds if any: Prescribed or Continued at Discharge Meds if any: NOT Prescribed or Continued at Discharge Congestive Heart Failure Inclusion Criteria At DC or during hospital stay patient has or had the following: CHF DIAGNOSIS No Discharge Core Measures Meds if any: Prescribed or Continued at Discharge Meds if any: NOT Prescribed or Continued at Discharge Cerebrovascular accident Inclusion Criteria At DC or during hospital stay patient has or had the following: CVA/TIA Diagnosis No Discharge Core Measures Meds if any: Prescribed or Continued at Discharge Meds if any: NOT Prescribed or Continued at Discharge Venous thromboembolism Inclusion Criteria VTE Diagnosis No VTE Type NONE VTE Confirmed by (Test) NONE Discharge Core Measures - Per Current guidelines, there needs to be overlap - treatment for the first 5 days of Warfarin therapy. - If discharged on Warfarin prior to 5 days of - overlap therapy, the patient will need to be - assessed for post discharge needs including - *Post discharge parental anticoagulation - *Warfarin and/or parental anticoagulation education - *Follow up date to check INR post discharge At least 5 days overlap therapy as Inpatient No Meds if any: Prescribed or Continued at Discharge Note: Overlap Therapy is Warfarin and Anticoagulant Meds if any: NOT Prescribed or Continued at Discharge
== END 2017-10-16 15:18 | DRG 812 ==
LOC: ERH 13:59 → 2NB 19:19 → ERHI 19:19 → ENRESERV 20:31 → ENTRNSPT 21:33 → 2NB 21:47 → EDTRNSPTSTS 21:49 → CMPTRNSPT 22:05 → 2NB 10-15 09:01 → ENPENDDIS 10-16 14:14 → 2NB 10-16 15:18
PROVIDERS: Emergency Medicine; Internal Medicine; Physician Assistant Medical; Student in an Organized Health Care Education/Training Program
PROC: 30233N1 Transfusion of Nonautologous Red Blood Cells into Peripheral Vein, Percutaneous Approach (ICD-10-PCS; principal; 2017-10-14)
DX: D62 Acute posthemorrhagic anemia (principal); N17.9 Acute kidney failure, unspecified; C64.2 Malignant neoplasm of left kidney, except renal pelvis; E11.40 Type 2 diabetes mellitus with diabetic neuropathy, unspecified; N18.9 Chronic kidney disease, unspecified; I12.9 Hypertensive chronic kidney disease with stage 1 through stage 4 chronic kidney disease, or unspecified chronic kidney disease; F17.200 Nicotine dependence, unspecified, uncomplicated; I25.10 Atherosclerotic heart disease of native coronary artery without angina pectoris; D50.0 Iron deficiency anemia secondary to blood loss (chronic); K21.9 Gastro-esophageal reflux disease without esophagitis; Z95.5 Presence of coronary angioplasty implant and graft; E78.5 Hyperlipidemia, unspecified; F39 Unspecified mood [affective] disorder; Z85.51 Personal history of malignant neoplasm of bladder; R31.9 Hematuria, unspecified; Z79.82 Long term (current) use of aspirin
CPT/HCPCS: 2NBSP; 36415; 36592; 71045; 76775; 81001; 82436; 86920; 87086; 93005; 93010; 99291; J3490; J7508; P9016

== ENCOUNTER 2017-11-09 11:07 | Inpatient (IN) | payer OTHER, MEDICARE ==
[~2017-11-09] VITALS: Ht 160 cm; Wt 94.4 kg
[~2017-11-09 11:07] MED LIST changes: +FERROUS SULFAT325 M3 PO
--- NOTE | 2017-11-09 12:15 | ED GENERAL ADULT ---
History of Present Illness General Chief Complaint: General Adult Stated Complaint: "I NEED A BLOOD TRANSFUSION" Source: patient Exam Limitations: no limitations Allergies Coded Allergies: No Known Allergies (06/22/16) Reconcile Medications Albuterol Sulfate (Proair Hfa) 90 MCG HFA.AER.AD 2 PUF INH Q4-6 PRN PRN ASTHMA (Reported) Amlodipine Besylate/Benazepril (Lotrel 10-40 MG Capsule) 10 MG-40 MG CAPSULE 1 CAP PO DAILY HTN (Reported) Aripiprazole (Abilify) 15 MG TABLET 1 TAB PO DAILY BIPOLAR (Reported) Aspirin (Aspirin*) 81 MG TAB.CHEW 1 TAB PO DAILY CAD (Reported) Atorvastatin Calcium (Lipitor) 40 MG TABLET 1 TAB PO QHS CHOLESTEROL ( Reported) Chlorthalidone 25 MG TABLET 1 TAB PO DAILY HTN (Reported) Clopidogrel Bisulfate (Clopidogrel) 75 MG TABLET 1 TAB PO DAILY CAD (Reported ) Ferrous Sulfate 325 MG (65 MG IRON) TABLET 1 TAB PO DAILY anemia (Reported) Fluphenazine HCl 5 MG TABLET 1 TAB PO BID MENTAL HEALTH (Reported) Gabapentin (Neurontin) 800 MG TABLET 1 TAB PO BID NEUROPATHY (Reported) 1100 MG IN AM AND 800 MG IN PM Metoprolol Succinate 100 MG TAB.ER.24H 1 TAB PO DAILY HTN (Reported) [place]-3 Acid Ethyl Esters (Lovaza) 1 GRAM CAPSULE 2 CAP PO BID CHOLESTEROL ( Reported) Pantoprazole Sodium (Protonix) 40 MG TABLET.DR 1 TAB PO DAILY GERD (Reported) Triage Note: 67 YO MALE TO TRIAGE FROM DR MCDUFFIE. STATES "I NEED A BLOOD TRANFUSION" STATES HE WAS FEELING WEAK FOR ABOUT A WEEK AND WAS SENT FOR OUTPATIENT BLOOD WORK. PT DENIES ANYWHERE. STATES +HEMATURIA. DENIES SOB. Triage Nurses Notes Reviewed? 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 Pt states he has been feeling increasingly weak for several weeks, reports [place] and palpitations. He reports a 6 month hx of gross hematuria. He denies abdominal pain, hemoptysis, N/V, fevers /chills, melena/hematochezia, dysuria. He was recently dc'ed from on 10/16/17 after being treated for acute on chronic blood loss anemia secondary to his malignancy. Pt's aid also reports that yesterday the pt complained of left leg numbness as he was attempting to step out of a vehicle associated with difficulty speaking, lasting approximatley 10 mins. She has also noted some incoherent and slurred speech intermittently this morning. Pt states he currently does not feel any numbness. (Bebe Cazares) Vital Signs & Intake/Output Vital Signs & Intake/Output Vital Signs Date Time Temp Pulse Resp B/P B/P Pulse O2 O2 Flow FiO2 Mean Ox Delivery Rate 11/09 195 Room Air Room Air 11/09 1832 98.7 70 19 130/61 99 Room Air 11/09 1635 98.9 76 16 147/64 98 04/ 1448 99.0 72 16 136/65 98 / 1433 98.6 75 16 126/59 98 Room Air 11/09 1248 Room Air 11/09 1111 98.3 88 18 175/63 98 Room Air (Daisy WOMACK,Billy Baig) Past History Travel History Traveled to [place] past 21 day No Medical History Any Pertinent Medical History? see below for history Neurological: NONE EENT: NONE Cardiovascular: hypertension, hyperlipidemia Respiratory: NONE Gastrointestinal: NONE Hepatic: NONE Renal: NONE Musculoskeletal: NONE Psychiatric: MOOD SWINGS Endocrine: diabetes Blood Disorders: anemia Cancer(s): bladder cancer WOOL BRUSHER/Reproductive: NONE Surgical History Surgical History: non-contributory Psychosocial History Who do you live with Patient/Self What is your primary language Hungarian Tobacco Use: Never used Family History Hx Contributory? No (Bebe Cazares) Review of Systems Review of Systems Constitutional: Reports: see HPI. EENTM: Reports: no symptoms. Respiratory: Reports: see HPI. Cardiovascular: Reports: see HPI. GI: Reports: no symptoms. Genitourinary: Reports: see HPI. Musculoskeletal: Reports: no symptoms. Skin: Reports: no symptoms. Neurological/Psychological: Reports: see HPI. Hematologic/Endocrine: Reports: see HPI. Immunologic/Allergic: Reports: no symptoms. All Other Systems: Reviewed and Negative (Bebe Cazares) Physical Exam Physical Exam General Appearance: well developed/nourished, no apparent distress, alert, awake , comfortable Head: atraumatic, normal appearance Eyes: Bilateral: normal appearance, PERRL, EOMI, pale conjunctivae. 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 Yes CVA/TIA Diagnosis: No Sepsis Present: No Sepsis Focused Exam Completed? No (Senia RASHID,Bebe Arnold) Progress Differential Diagnoses I considered the following diagnoses in my evaluation of the patient: [Acute anemia, renal cell carcinoma, acute coronary syndrome, acute kidney injury, demand ischemia, stroke, ICH] Diagnostic Imaging: Viewed by Me: CT Scan. Discussed w/RAD: CT Scan. Radiology Impression: PATIENT: LYN TELLEZ PRESENT AGE: 67 PATIENT ACCOUNT NO: [id number] : 49 LOCATION: [facility] ORDERING PHYSICIAN: Bebe RASHID SERVICE DATE: 11/09/17 EXAM TYPE: CAT - CT HEAD WO IV CONTRAST EXAMINATION: CT HEAD without contrast CLINICAL INFORMATION: Neurological symptoms COMPARISON: No prior CT scan available for comparison. TECHNIQUE: Computed axial tomographic sections acquired at 2.5 mm thin sections. DLP: 621 mGy-cm FINDINGS: CEREBRAL HEMISPHERES: There is no evidence of intra-axial or extra-axial mass, hemorrhage or acute infarct. BRAIN PARENCHYMA: Atrophy SUBDURAL SPACE: No bleed. BASAL GANGLIA AND PINEAL GLAND: Unremarkable VENTRICLES: Symmetric and normal in size. CEREBELLUM AND BRAINSTEM: No space-occupying mass, hemorrhage or acute infarct. CEREBELLOPONTINE ANGLES: No lesion found. ORBITS: No intraorbital mass. VESSELS: Unremarkable SKULL BASE: Unremarkable INCLUDED SINUSES AT SKULL BASE: Clear SKULL AND SKIN: No fracture or bone lesion found. IMPRESSION: 1. Deep white matter and periventricular hypoattenuation, nonspecific; however, in this patient's age group most likely sequela of chronic microvascular angiopathy ischemia. 2. No CT evidence of infarct, intracranial mass or bleed. DICTATED BY: Christie Smalls MD DATE/TIME DICTATED:11/09/171343 MANAGER DIALYSIS:ABBY DATE/TIME TRANSCRIBED:1343 CONFIDENTIAL, DO NOT COPY WITHOUT APPROPRIATE AUTHORIZATION. < Electronically signed in Other Vendor System> SIGNED BY: Slim WOMACK, Christie 11/09/17 1352 Initial ED EKG: sinus rhythm @68bpm, nonspecific ST changes Prior EKG: unchanged (10/15/17) (Senia RASHID,Bebe Arnold) Plan of Care: Orders Procedure Date/time Status Heart Healthy Diet 11/10 B Active CBC WITHOUT DIFFERENTIAL 11/10 06 Active BASIC ELECTROLYTES PLUS BUN&CR 11/10 06 Active Heart Healthy Diet 11/09 D Complete CBC WITHOUT DIFFERENTIAL 11/09 2355 Active TROPONIN LEVEL 11/09 2200 Active EKG 11/09 2200 Active Weight 11/10 1955 Active Teach/Educate 11/10 1955 Active Pain Treatment and Response 11/10 1955 Active Nutritional Intake, Monitor 11/10 1955 Active Isolation 11/10 1955 Active Intake & Output 11/10 1955 Active Patient Care Conference 11/09 195 Active Activity/Ambulation 11/10 1955 Active Saline Lock 11/09 182 Active Pathway - chart 11/09 182 Active House Staff 11/09 1822 Active Misc Message 11/09 1753 Active ED Holding Orders 11/09 1753 Active Admit to inpatient 11/09 1753 Active Vital Signs 11/09 1753 Active Code Status 11/09 1753 Active Patient Data 11/09 1749 Active TROPONIN LEVEL 11/09 1545 Complete EKG 11/09 1545 Active BLOOD PRODUCT PICKUP 11/09 1357 Active LEUKOCYTE POOR (PACKED CELLS) 11/09 1321 Active Add-on Test (ER Only) 11/09 1254 Active EKG 11/09 1254 Active TROPONIN LEVEL 11/09 1242 Complete URINALYSIS 11/09 1225 Active PARTIAL THROMBOPLASTIN TIME 11/09 1216 Complete PROTHROMBIN TIME 11/09 1216 Complete COMPREHENSIVE METABOLIC PANEL 11/09 1216 Complete CBC WITHOUT DIFFERENTIAL 04/03 1216 Complete TYPE & SCREEN (NOT X-MATCH) 11/09 1216 Active VTE Mechanical Prophylaxis 11/09 UNK Active Current Medications Sig/Jacey Start time Last Medication Dose Stop Time Status Admin Amlodipine Besylate 10 MG DAILY 11/10 1000 AC (Norvasc) Aripiprazole 15 MG DAILY 11/10 1000 AC (Abilify) Chlorthalidone 25 MG DAILY 11/10 1000 AC (Hygroton) Clopidogrel Bisulfate 75 MG DAILY 11/10 1000 AC (Plavix) Ferrous Sulfate 325 MG DAILY 11/10 1000 AC (Feosol) Metoprolol Succinate 100 MG DAILY 11/10 1000 AC (Toprol Xl) Multivitamins 1 TAB DAILY 11/10 1000 AC (Theragran Vitamins) Omeprazole 40 MG DAILY AC 11/10 0700 AC (Prilosec) Atorvastatin Calcium 40 MG AT BEDTIME 11/09 2200 AC (Lipitor) Fish Oil 1,050 MG BID 11/09 2200 AC ([place]-3) Fluphenazine HCl 5 MG BID 11/09 2200 AC (Prolixin 5 MG Tablet.) Gabapentin 800 MG BID 11/09 220 AC (Neurontin) Acetaminophen 650 MG Q6P PRN 11/09 1830 AC (Tylenol) Albuterol Sulfate 2 PUF Q4-6 PRN PRN 11/09 183 AC (Ventolin) Laboratory Tests 11/09/17 1646: Troponin I 1.93 *H 11/09/17 1242: Anion Gap 13, Estimated GFR 40 L, BUN/Creatinine Ratio 17.6, Glucose 138 H, Calcium 9.3, Total Bilirubin 0.3, AST 26, ALT 29, Alkaline Phosphatase 80, Troponin I 0.54 *H, Total Protein 7.3, Albumin 4.1, Globulin 3.2, Albumin/ Globulin Ratio 1.3, PT 11.9, INR 1.09, APTT 30, CBC w Diff NO MAN DIFF REQ, RBC 2.37 L, MCV 77.2 L, MCH 25.1 L, MCHC 32.5 L, RDW 19.5 H, MPV 7.8, Gran % 67.0, Lymphocytes % 21.4, Monocytes % 8.7, Eosinophils % 1.9, Basophils % 1.0, Absolute Granulocytes 4.2, Absolute Lymphocytes 1.3, Absolute Monocytes 0.5, Absolute Eosinophils 0.1, Absolute Basophils 0.1 Patient's H/H is low, patient transfused 2 units packed red blood cells. Patient's troponin enzyme found to be elevated without acute EKG changes. I discussed these findings with Dr. Arguello who recommends hospital admission for further evaluation. Patient has had normal troponins in the past. Patient does have mild acute kidney injury. Patient had a brief episode of neurologic symptoms yesterday which appear to have resolved, he is currently neurologically intact. Head CT scan is within normal limits. This patient will likely require brain MRI and possible neurology consult. Patient also requires possible urology/heme/onc consult given his renal cell carcinoma leading to anemia. Case management agrees with full admission. Dr. Villa present to see and evaluate the patient. Discussed this patient with hospitalist Dr. Darby regarding admission. (Senia RASHID,Bebe Arnold) (Daisy WOMACK,Billy Baig) Departure Departure Disposition: STILL A PATIENT Condition: Stable Clinical Impression Primary Impression: Acute blood loss anemia Secondary Impressions: Acute kidney injury, Elevated troponin Referrals: Jessica Sifuentes APRN (PCP/Family) Departure Forms: Customer Survey General Discharge Information Admission Note Spoke With: Wilner WOMACKchacho Documentation of Exam: Documentation of any treatments & extenuating circumstances including Concerns Regarding Discharge (functional status, medication knowledge or non-compliance, living conditions, etc.) that warrant an admission rather than observation: [ Acute anemia requiring IV blood transfusion, elevated troponin enzymes which are trending up requiring cardiology consult, repeat EKGs, transient neurologic symptoms yesterday requiring possible neurology consult, patient's history of renal cell carcinoma requiring possible urology consult, premature discharge medically unsafe.] (Bebe Cazares) PA/RELAY ASSOCIATE Co-Sign Statement Statement: ED Attending supervision documentation- [X] I saw and evaluated the patient. I have also reviewed all the pertinent lab results and diagnostic results. I agree with the findings and the plan of care as documented in the PA's/RELAY ASSOCIATE's documentation. Patient presents for evaluation of a transfusion. Physical examination reveals a pale appearing gentleman in no acute respiratory distress. [] I have reviewed the ED Record and agree with the PA's/RELAY ASSOCIATE's documentation. [] Additions or exceptions (if any) to the PAs/RELAY ASSOCIATE's note and plan are summarized below: [] (Daisy WOMACK,Billy Baig) Critical Care Note Critical Care Note Critical Care Time: 75-104 min (Senia RASHID,Bebe Arnold)
[2017-11-09 12:55] LABS: ABSOLUTE BASOPHIL COUNT 0.1 /CUMM (0.0-0.2); ABSOLUTE EOSINOPHIL COUNT 0.1 /CUMM (0.0-0.7); ABSOLUTE GRANULOCYTE CT 4.2 /CUMM (1.4-6.5); ABSOLUTE LYMPH COUNT 1.3 /CUMM (1.2-3.4); ABSOLUTE MONOCYTE COUNT 0.5 /CUMM (0.10-0.60); EOSINOPHIL % 1.9 % (0-5); MEAN CORPUSCULAR HGB 25.1 PG (27.0-31.0); MEAN CORPUSCULAR HGB CONC 32.5 G/DL (33.0-37.0); MEAN CORPUSCULAR VOLUME 77.2 FL (80.0-94.0); MEAN PLATELET VOLUME 7.8 FL (7.4-10.4); PLATELET COUNT 227 /CUMM (130-400); RBC DISTRIBUTION WIDTH 19.5 % (11.5-14.5); RED BLOOD CELL CT 2.37 /CUMM (4.70-6.10); WHITE BLOOD CELL COUNT 6.3 /CUMM (4.8-10.8)
[2017-11-09 12:57] LABS: HEMATOCRIT 18.3 % (42-52)
[2017-11-09 13:13] LABS: PT 11.9 SEC (9.4-12.5); PTT 30 SEC (25-37)
--- NOTE | 2017-11-09 13:52 | CT SCAN REPORT ---
EXAMINATION: CT HEAD without contrast CLINICAL INFORMATION: Neurological symptoms COMPARISON: No prior CT scan available for comparison. TECHNIQUE: Computed axial tomographic sections acquired at 2.5 mm thin sections. DLP: 621 mGy-cm FINDINGS: CEREBRAL HEMISPHERES: There is no evidence of intra-axial or extra-axial mass, hemorrhage or acute infarct. BRAIN PARENCHYMA: Atrophy SUBDURAL SPACE: No bleed. BASAL GANGLIA AND PINEAL GLAND: Unremarkable VENTRICLES: Symmetric and normal in size. CEREBELLUM AND BRAINSTEM: No space-occupying mass, hemorrhage or acute infarct. CEREBELLOPONTINE ANGLES: No lesion found. ORBITS: No intraorbital mass. VESSELS: Unremarkable SKULL BASE: Unremarkable INCLUDED SINUSES AT SKULL BASE: Clear SKULL AND SKIN: No fracture or bone lesion found. IMPRESSION: 1. Deep white matter and periventricular hypoattenuation, nonspecific; however, in this patient's age group most likely sequela of chronic microvascular angiopathy ischemia. 2. No CT evidence of infarct, intracranial mass or bleed.
--- NOTE | 2017-11-09 17:42 | History & Physical ---
Vineet WOMACK,[facility] 11/09/17 3832: General Information and HPI MD Statement: I have seen and personally examined LYN TELLEZ and documented this H&P. The patient is a 67 year old M who presented with a patient stated chief complaint of [low hgb]. Source of Information: patient, family Exam Limitations: no limitations History of Present Illness: 66-year-old male with a past medical history of anemia 2/2 transitional cell renal carcinoma diagnosed in late 2016, hypertension, hyperlipidemia, neuropathy , GERD, CAD with 2 stents was on dual antiplatelet therapy (aspirin dc'ed), diabetes mellitus presenting for low h/h. The patient was recently discharged on 10/16/17 for hematuria and anemia 2/2 to RCC. The patient states that he gets weekly cbc for his anemia. The patient got a CBCs drawn yesterday and was called today as his hemoglobin and hematocrit drop. The patient continues to have hematuria. Of note, the patient states that he was walking home from epiglottis weak and felt like he had a heart attack. The patient states that this is probably due to overexertion as she usually takes a break every block however he continued to walk home without any breaks this time. Described the pain as sharp pain. Says that he napped and the pain resolved spontaneously. Currently he denies any chest pain or shortness breath. He denies any edema, vomiting, abdominal pain, hematemesis, bloody stools, dysuria, dizziness, lightheadedness, or any musculoskeletal pain. Part of the history was given by the patient's relative. The relative stated that the patient has a planned repeat scan at [facility] in November in the nephrotic oncologist was leaning towards nephrectomy. Allergies/Medications Allergies: Coded Allergies: No Known Allergies (06/22/16) Home Med list Albuterol Sulfate (Proair Hfa) 90 MCG HFA.AER.AD 2 PUF INH Q4-6 PRN PRN ASTHMA (Reported) Amlodipine Besylate/Benazepril (Lotrel 10-40 MG Capsule) 10 MG-40 MG CAPSULE 1 CAP PO DAILY HTN (Reported) Aripiprazole (Abilify) 15 MG TABLET 1 TAB PO DAILY BIPOLAR (Reported) Aspirin (Aspirin*) 81 MG TAB.CHEW 1 TAB PO DAILY CAD (Reported) Atorvastatin Calcium (Lipitor) 40 MG TABLET 1 TAB PO QHS CHOLESTEROL ( Reported) Chlorthalidone 25 MG TABLET 1 TAB PO DAILY HTN (Reported) Clopidogrel Bisulfate (Clopidogrel) 75 MG TABLET 1 TAB PO DAILY CAD (Reported ) Ferrous Sulfate 325 MG (65 MG IRON) TABLET 1 TAB PO DAILY anemia (Reported) Fluphenazine HCl 5 MG TABLET 1 TAB PO BID MENTAL HEALTH (Reported) Gabapentin (Neurontin) 800 MG TABLET 1 TAB PO BID NEUROPATHY (Reported) 1100 MG IN AM AND 800 MG IN PM Metoprolol Succinate 100 MG TAB.ER.24H 1 TAB PO DAILY HTN (Reported) [place]-3 Acid Ethyl Esters (Lovaza) 1 GRAM CAPSULE 2 CAP PO BID CHOLESTEROL ( Reported) Pantoprazole Sodium (Protonix) 40 MG TABLET.DR 1 TAB PO DAILY GERD (Reported) Past History Travel History Traveled to [place] past 21 day No Medical History Neurological: NONE EENT: NONE Cardiovascular: hypertension, hyperlipidemia Respiratory: NONE Gastrointestinal: NONE Hepatic: NONE Renal: NONE Musculoskeletal: NONE Psychiatric: MOOD SWINGS Endocrine: diabetes Blood Disorders: anemia Cancer(s): bladder cancer BROACH TROUBLE SHOOTER/Reproductive: NONE Surgical History Surgical History: non-contributory Past Family/Social History Psychosocial History Smoking Status: Current Everyday Smoker (half pack per day [id number]) ETOH Use: denies use Illicit Drug Use: denies illicit drug use Review of Systems Review of Systems Constitutional: Reports: see HPI, weakness. Denies: fever. Cardiovascular: Denies: chest pain, edema. Respiratory: Denies: short of breath. GI: Denies: abdominal pain, bloody stool. Genitourinary: Reports: see HPI, hematuria. Musculoskeletal: Reports: no symptoms. Exam & Diagnostic Data Last 24 Hrs of Vital Signs/I&O Vital Signs Date Time Temp Pulse Resp B/P B/P Pulse O2 O2 Flow FiO2 Mean Ox Delivery Rate 11/09 2012 98.7 74 16 122/64 95 Room Air 11/09 1957 Room Air Room Air 11/09 1832 98.7 70 19 130/61 99 Room Air 11/09 1635 98.9 76 16 147/64 98 / 1448 99.0 72 16 136/65 98 / 1433 98.6 75 16 126/59 98 Room Air 11/09 1248 Room Air 11/09 1111 98.3 88 18 175/63 98 Room Air Intake & Output 11/09 1600 11/09 0800 11/09 0000 Intake Total Output Total Balance Patient 210 lb Weight Weight Reported by Patient Measurement Method Physical Exam General Appearance Alert, Oriented X3, Cooperative Cardiovascular Regular Rate, Normal S1, Normal S2 Lungs Clear to Auscultation, decreased air movement at bases Abdomen Normal Bowel Sounds, Soft, No Tenderness Extremities 2+ LE edema Vascular 2+ radial pulses Last 24 Hrs of Labs/Jose: Laboratory Tests 11/10/17 0530: Anion Gap 12, Estimated GFR 40 L, BUN/Creatinine Ratio 16.5, Troponin I 1.82 *H , CBC w Diff NO MAN DIFF REQ, RBC 2.88 L, MCV 79.9 L, MCH 26.0 L, MCHC 32.5 L, RDW 18.4 H, MPV 8.1, Gran % 67.8, Lymphocytes % 18.9 L, Monocytes % 9.0, Eosinophils % 3.3, Basophils % 1.0, Absolute Granulocytes 4.2, Absolute Lymphocytes 1.2, Absolute Monocytes 0.6, Absolute Eosinophils 0.2, Absolute Basophils 0.1, Urine Color BLDY H, Urine Clarity TURBD H, Urine pH 6.5, Ur Specific [place] 1.020, Urine Protein >=300 H, Urine Ketones 15 H, Urine Nitrite POS H, Urine Bilirubin NEG@ICTO, Urine Urobilinogen 2.0 H, Ur Leukocyte Esterase MOD H, Ur Microscopic SEDIMENT EXAMINED, Urine RBC PACKD H, Urine Hemoglobin LARGE H, Urine Glucose NEG 11/09/17 2248: Troponin I 2.38 *H, CBC w Diff NO MAN DIFF REQ, RBC 2.51 L, MCV 78.6 L, MCH 25.5 L, MCHC 32.5 L, RDW 19.2 H, MPV 7.9, Gran % 63.4, Lymphocytes % 21.5, Monocytes % 10.5 H, Eosinophils % 3.6, Basophils % 1.0, Absolute Granulocytes 3.8, Absolute Lymphocytes 1.3, Absolute Monocytes 0.6, Absolute Eosinophils 0.2, Absolute Basophils 0.1 11/09/17 1646: Troponin I 1.93 *H Assessment/Plan Assessment: 66-year-old male with a past medical history of anemia 2/2 transitional cell renal carcinoma diagnosed in late 2017, hypertension, hyperlipidemia, neuropathy , GERD, CAD with 2 stents, was on dual antiplatelet therapy (aspirin dc'ed), diabetes mellitus presenting for low h/h #Anemia 2/2 L RCC hematuria with hydronephrosis H/H 5.9/18.3 Received 1 unit in the ED -Follow-up attending cardiology recommendations -Follow-up CBC at 10 PM -Hemoglobin goal >8 -Continue iron -Follow up urology consult in a.m. #elevated trops troponins 0.54, 1.93 -Team spoke with cardiology who stated that not to start IV heparin even if troponins are continuing to rise -Repeat EKG and troponins 10 PM #CKD CR 1.7, BUN 30 -Continue to monitor #Chronic medical conditions: hypertension, hyperlipidemia, neuropathy, GERD, CAD with 2 stents, diabetes, mental health -Continue metoprolol, Plavix, Atorvastatin, Chlorthalidone, Omeprazole, Amlodipine, Gabapentin, Fluphenazine, ariprazole #FULL CODE #DVT ppx - ALPS (bleeding) As Ranked By This Provider Problem List: 1. Acute blood loss anemia 2. Elevated troponin 3. Renal cancer Core Measures/Misc (04/25) Acute Coronary Syndrome ACS Diagnosis: Yes Congestive Heart Failure Congestive Heart Failure Diagnosis No Cerebrovascular Accident CVA/TIA Diagnosis: No VTE (View Protocol) VTE Risk Factors Acute Medical Illness No Mechanical VTE Prophylaxis d/t Other No VTE Pharm Prophylaxis d/t NA PharmProphylax ordered Sepsis (View protocol) Sepsis Present: No Constantino Foster 11/09/17 1908: Resident Review Statement Resident Statement: examined this patient, discussed with international trade specialist, agreed with international trade specialist, discussed with family, reviewed EMR data (avail), discussed with nursing , discussed with case mgmt, reviewed images, amended to note Other Findings: Mr. Tellez is a 66-year-old male with a past medical history of hypertension, hyperlipidemia, neuropathy, GERD, CAD with 2 stents placed on August,, currently on Plavix only (Per patient Aspirin was discontinued yesterday by his photographic technician), untreated transitional cell renal carcinoma of the left kidney diagnosed in late 2016, atrophied right kidney, diabetes mellitus who was sent in from his photographic technician office for low H&H. Patient was recently admitted for acute blood loss anemia status post blood transfusion, and discharge with a follow-up with urologist and photographic technician. Patient was following with urologist at [facility] who was planning to repeat CAT scan on November, depending on tumor size the decisions regarding nephrectomy will be taken, he was seen by Dr. Power yesterday who discontinued his aspirin are recommended to continue only Plavix, CBC was repeated at his photographic technician office who found that his H&H was dropping so he was sent for blood transfusion. At our ED his H&H down to 5.9/18.3 he already received 1 unit of blood transfusion, his troponin was positive initially 0.54, then 1.93 (I discussed the case with Dr. Francis was covering for Dr. Arguello who recommended to keep trending troponin and EKG, no IV heparin even if troponin trending up, tomorrow patient will be evaluated by his photographic technician Dr. Power), will repeat his CBC tonight at midnight, urology consult tomorrow, transfuse as needed, goal hemoglobin is 8 given his history of coronary artery disease. DVT prophylaxis ALPS Full code Maura Darby MD 11/09/172109: Attending MD Review Statement Attending Statement Attending MD Statement: examined this patient, discuss w/resident/PA/SOCCER COMMENTATOR, agreed w/resident/PA/SOCCER COMMENTATOR, reviewed EMR data (avail) Attending Assessment/Plan: 67M PMH hypertension, hyperlipidemia, neuropathy, GERD, CAD with 2 stents placed 2 month ago, currently on dual antiplatelet therapy, untreated transitional cell renal carcinoma diagnosed in late 2017, diabetes mellitus sent by PCP for anemia found on routine labs. Patient is asymptomatic, feels well, and has no complaints other than not wanting to be in the hospital. He has gross hematuria , which is chronic, and refuses nephrectomy. He denies chest pain, palpitations , SOB, weakness, lightheadedness. He was found to have elevated troponin 0.58 with normal EKG. 1. Chronic blood loss anemia 2. Type 2 myocardial infarction 3. Gross hematuria secondary to transitional cell carcinoma 4. History of CAD Plan - Admit to telemetry - Serial cardiac enzymes and EKG - Echocardiogram - Cardiology consult - Urology consult - Trend Hgb - Transfuse to Hgb>8 - Continue home medications, including DAPT given recency of stent placement - ALPS for DVT PPx
--- NOTE | 2017-11-09 19:19 | Cons- Cardiology ---
General Information and HPI Consulting Request Date of Consult: 11/09/17 Requested By: Maura Darby MD Reason for Consult: elevated troponin Source of Information: patient, old records Exam Limitations: poor historian History of Present Illness: the patient is a 67-year-old male whose customer servicer is regularly Dr. Power. I am covering for him today. His past mental history is remarkable for hypertension, hyperlipidemia, reflux disease, transitional cell renal carcinoma, coronary disease status post 2 stents, who presents to the emergency room today with his aide after being found to be significantly anemic by his primary physician. According to the patient he has been feeling increasingly weak and fatigued over the last several weeks with some exertional dyspnea and reported palpitations. He has had gross hematuria over the last several months. He denies any other significant focal symptoms. The patient stated also reports recent complaints of left-sided weakness which lasted several minutes. At the moment, no residual symptoms are noted. There may have been some speech slurring intermittently on the morning of admission as well. Allergies/Medications Allergies: Coded Allergies: No Known Allergies (06/22/16) Home Med List: Albuterol Sulfate (Proair Hfa) 90 MCG HFA.AER.AD 2 PUF INH Q4-6 PRN PRN ASTHMA (Reported) Amlodipine Besylate/Benazepril (Lotrel 10-40 MG Capsule) 10 MG-40 MG CAPSULE 1 CAP PO DAILY HTN (Reported) Aripiprazole (Abilify) 15 MG TABLET 1 TAB PO DAILY BIPOLAR (Reported) Atorvastatin Calcium (Lipitor) 40 MG TABLET 1 TAB PO QHS CHOLESTEROL ( Reported) Chlorthalidone 25 MG TABLET 1 TAB PO DAILY HTN (Reported) Clopidogrel Bisulfate (Clopidogrel) 75 MG TABLET 1 TAB PO DAILY CAD (Reported ) Ferrous Sulfate 325 MG (65 MG IRON) TABLET 1 TAB PO DAILY anemia (Reported) Fluphenazine HCl 5 MG TABLET 1 TAB PO BID MENTAL HEALTH (Reported) Gabapentin (Neurontin) 800 MG TABLET 1 TAB PO BID NEUROPATHY (Reported) 1100 MG IN AM AND 800 MG IN PM Metoprolol Succinate 100 MG TAB.ER.24H 1 TAB PO DAILY HTN (Reported) [place]-3 Acid Ethyl Esters (Lovaza) 1 GRAM CAPSULE 2 CAP PO BID CHOLESTEROL ( Reported) Pantoprazole Sodium (Protonix) 40 MG TABLET.DR 1 TAB PO DAILY GERD (Reported) Current Medications: Current Medications Sig/Jacey Start time Last Medication Dose Route Stop Time Status Admin Acetaminophen 650 MG Q6P PRN 11/09 1830 AC PO Albuterol Sulfate 2 PUF Q4-6 PRN PRN 11/09 1830 AC INH Amlodipine Besylate 10 MG DAILY 11/10 1000 AC PO Aripiprazole 15 MG DAILY 11/10 1000 AC PO Atorvastatin Calcium 40 MG AT BEDTIME 11/09 2200 AC PO Chlorthalidone 25 MG DAILY 11/10 1000 AC PO Clopidogrel Bisulfate 75 MG DAILY 11/10 1000 AC PO Ferrous Sulfate 325 MG DAILY 11/10 1000 AC PO Fish Oil 1,050 MG BID 11/09 2200 AC PO Fluphenazine HCl 5 MG BID 11/09 2200 AC PO Gabapentin 800 MG BID 11/09 2200 AC PO Metoprolol Succinate 100 MG DAILY 11/10 1000 AC PO Multivitamins 1 TAB DAILY 11/10 1000 AC PO Omeprazole 40 MG DAILY AC 11/10 0700 AC PO Past History Travel History Traveled to [place] past 21 day No Medical History Neurological: NONE EENT: NONE Cardiovascular: hypertension, hyperlipidemia Respiratory: NONE Gastrointestinal: NONE Hepatic: NONE Renal: NONE Musculoskeletal: NONE Psychiatric: MOOD SWINGS Endocrine: diabetes Blood Disorders: anemia Cancer(s): bladder cancer DEVELOPMENTAL PSYCHOLOGIST/Reproductive: NONE Surgical History Surgical History: non-contributory Exam & Diagnostic Data Vital Signs and I&O Vital Signs Date Time Temp Pulse Resp B/P B/P Pulse O2 O2 Flow FiO2 Mean Ox Delivery Rate 11/09 183 98.7 70 19 130/61 99 Room Air 11/09 1635 98.9 76 16 147/64 98 11/09 1448 99.0 72 16 136/65 98 11/09 1433 98.6 75 16 126/59 98 Room Air 11/09 1248 Room Air 11/09 1111 98.3 88 18 175/63 98 Room Air Intake & Output 11/09 1600 11/09 0811/09 0000 11/08 1600 11/08 0811/08 0000 Intake Total Output Total Balance Patient 210 lb Weight Weight Reported by Patient Measurement Method Physical Exam: General Appearance Alert, Oriented X3, Cooperative Cardiovascular Regular Rate, Normal S1, Normal S2, 1 to 2/6 systolic murmur left upper sternal border Lungs Clear to Auscultationand percussion bilaterally Abdomen Normal Bowel Sounds, Soft, No Tenderness Extremities 1-2+ bilateral lower extremity edema Vascular normal bilaterally Labs/Jose Results: Laboratory Tests 11/09 11/09 1646 1242 Chemistry Sodium (137 - 145 mmol/L) 143 Potassium (3.5 - 5.1 mmol/L) 3.7 Chloride (98 - 107 mmol/L) 104 Carbon Dioxide (22 - 30 mmol/L) 26 Anion Gap (5 - 16) 13 BUN (9 - 20 mg/dL) 30 H Creatinine (0.7 - 1.2 mg/dL) 1.7 H Estimated GFR (>60 ml/min) 40 L BUN/Creatinine Ratio (7 - 25 %) 17.6 Glucose (65 - 99 mg/dL) 138 H Calcium (8.4 - 10.2 mg/dL) 9.3 Total Bilirubin (0.2 - 1.3 mg/dL) 0.3 AST (17 - 59 U/L) 26 ALT (21 - 72 U/L) 29 Alkaline Phosphatase (< 127 U/L) 80 Troponin I (<0.11 ng/ml) 1.93 *H 0.54 *H Total Protein (6.3 - 8.2 g/dL) 7.3 Albumin (3.5 - 5.0 g/dL) 4.1 Globulin (1.9 - 4.2 gm/dL) 3.2 Albumin/Globulin Ratio (1.1 - 2.2 %) 1.3 Coagulation PT (9.4 - 12.5 SEC) 11.9 INR (0.90 - 1.17) 1.09 APTT (25 - 37 SEC) 30 Hematology CBC w Diff NO MAN DIFF REQ WBC (4.8 - 10.8 /CUMM) 6.3 RBC (4.70 - 6.10 /CUMM) 2.37 L Hgb (14.0 - 18.0 G/DL) 5.9 *L Hct (42 - 52 %) 18.3 *L MCV (80.0 - 94.0 FL) 77.2 L MCH (27.0 - 31.0 PG) 25.1 L MCHC (33.0 - 37.0 G/DL) 32.5 L RDW (11.5 - 14.5 %) 19.5 H Plt Count (130 - 400 /CUMM) 227 MPV (7.4 - 10.4 FL) 7.8 Gran % (42.2 - 75.2 %) 67.0 Lymphocytes % (20.5 - 51.1 %) 21.4 Monocytes % (1.7 - 9.3 %) 8.7 Eosinophils % (0 - 5 %) 1.9 Basophils % (0.0 - 2.0 %) 1.0 Absolute Granulocytes (1.4 - 6.5 /CUMM) 4.2 Absolute Lymphocytes (1.2 - 3.4 /CUMM) 1.3 Absolute Monocytes (0.10 - 0.60 /CUMM) 0.5 Absolute Eosinophils (0.0 - 0.7 /CUMM) 0.1 Absolute Basophils (0.0 - 0.2 /CUMM) 0.1 Assessment/Plan Assessment/Plan assessment: 1. Worsening dyspnea likely related to anemia, etc. 2. Worsening anemia 3. History of coronary artery disease, status post stenting, on clopidogrel 4. Recent neurologic symptoms; rule out TIA/CVA 5. Elevated troponin, suggestive of type II OR 6. chronic renal insufficiency Recommendations: -Admit patient to telemetry monitoring -Transfuse to hemoglobin greater than 7.0 -Trend troponin until decreasing -ECG tonight and again in the morning -Continue regular medications of possible -Echocardiogram to reassess left ventricular function and regional wall motion -Further plans after the above. Consult Acknowledgment - Thank you for your consult request.
[2017-11-09 20:13] VITALS: BP 122/64
[2017-11-09 23:07] LABS: ABSOLUTE BASOPHIL COUNT 0.1 /CUMM (0.0-0.2); ABSOLUTE EOSINOPHIL COUNT 0.2 /CUMM (0.0-0.7); ABSOLUTE GRANULOCYTE CT 3.8 /CUMM (1.4-6.5); ABSOLUTE LYMPH COUNT 1.3 /CUMM (1.2-3.4); ABSOLUTE MONOCYTE COUNT 0.6 /CUMM (0.10-0.60); EOSINOPHIL % 3.6 % (0-5); GRANULOCYTE % 63.4 % (42.2-75.2); MEAN CORPUSCULAR HGB 25.5 PG (27.0-31.0); MEAN CORPUSCULAR HGB CONC 32.5 G/DL (33.0-37.0); MEAN CORPUSCULAR VOLUME 78.6 FL (80.0-94.0); MEAN PLATELET VOLUME 7.9 FL (7.4-10.4); PLATELET COUNT 189 /CUMM (130-400); RBC DISTRIBUTION WIDTH 19.2 % (11.5-14.5); RED BLOOD CELL CT 2.51 /CUMM (4.70-6.10); WHITE BLOOD CELL COUNT 6.1 /CUMM (4.8-10.8)
[2017-11-09 23:12] LABS: HEMATOCRIT 19.7 % (42-52)
[2017-11-10 06:05] LABS: ABSOLUTE BASOPHIL COUNT 0.1 /CUMM (0.0-0.2); ABSOLUTE EOSINOPHIL COUNT 0.2 /CUMM (0.0-0.7); ABSOLUTE GRANULOCYTE CT 4.2 /CUMM (1.4-6.5); ABSOLUTE LYMPH COUNT 1.2 /CUMM (1.2-3.4); ABSOLUTE MONOCYTE COUNT 0.6 /CUMM (0.10-0.60); EOSINOPHIL % 3.3 % (0-5); GRANULOCYTE % 67.8 % (42.2-75.2); MEAN CORPUSCULAR HGB CONC 32.5 G/DL (33.0-37.0); MEAN CORPUSCULAR VOLUME 79.9 FL (80.0-94.0); MEAN PLATELET VOLUME 8.1 FL (7.4-10.4); PLATELET COUNT 196 /CUMM (130-400); RBC DISTRIBUTION WIDTH 18.4 % (11.5-14.5); RED BLOOD CELL CT 2.88 /CUMM (4.70-6.10); WHITE BLOOD CELL COUNT 6.3 /CUMM (4.8-10.8)
[2017-11-10 06:36] VITALS: BP 140/72
--- NOTE | 2017-11-10 07:16 | PN- Housestaff ---
Vineet WOMACK,[facility] 11/10/17 0716: Subjective Follow-up For: Anemia Hematuria RCC Elevated trops / Type II CT Tele-Events Since Last Visit: NSR / 1st degree AVB Decrease ST Dropped QRS HR 67-82 NC .22 Subjective: No acute events overnight. Requesting to be discharged home. No SOB or CP. Review of Systems Constitutional: Reports: see HPI. Objective Last 24 Hrs of Vital Signs/I&O Vital Signs Date Time Temp Pulse Resp B/P B/P Pulse O2 O2 Flow FiO2 Mean Ox Delivery Rate 11/10 1426 98.2 69 20 138/66 96 Room Air 11/10 0940 140/72 11/10 0940 140/70 11/10 0636 98.0 92 20 140/72 91 Intake & Output 11/10 1600 11/10 0800 11/10 0000 Intake Total 960 675 100 Output Total 650 500 Balance 310 175 100 Intake, Blood 400 350 Product Intake, IV 0 150 Intake, Oral 560 175 100 Number 1 Bowel Movements Output, Urine 650 500 Patient 208 lb Weight Weight Bed scale Measurement Method Physical Exam General Appearance: Alert, Oriented X3, Cooperative Cardiovascular: Regular Rate, Normal S1, Normal S2 Lungs: Clear to Auscultation, decrease air movement at bases Abdomen: Normal Bowel Sounds, Soft, No Tenderness Extremities: 3+ RLE edema, 2+ LLE edema Vascular: 2+ radial pulses Current Medications: Current Medications Sig/Jacey Start time Last Medication Dose Route Stop Time Status Admin Acetaminophen 650 MG Q6P PRN 11/09 1830 AC PO Albuterol Sulfate 2 PUF Q4-6 PRN PRN 11/09 1830 AC INH Amlodipine Besylate 10 MG DAILY 11/10 1000 AC 11/10 PO 0940 Aripiprazole 15 MG AT BEDTIME 11/10 2200 DC PO Aripiprazole 15 MG AT BEDTIME 11/09 2215 AC 11/09 PO 2244 Atorvastatin Calcium 40 MG AT BEDTIME 11/09 2200 AC 11/09 PO 2244 Chlorthalidone 25 MG DAILY 11/10 1000 AC 11/10 PO 1243 Clopidogrel Bisulfate 75 MG DAILY 11/10 1000 AC 11/10 PO 0940 Ferrous Sulfate 325 MG DAILY 11/10 1000 AC 11/10 PO 0940 Fish Oil 1,050 MG BID 11/09 220 AC 11/10 PO 0940 Fluphenazine HCl 5 MG BID 11/09 2200 AC 11/10 PO 0940 Gabapentin 800 MG BID 11/09 2200 AC 11/10 PO 0940 Insulin Aspart 0 TIDAC 11/10 1200 AC 11/10 DC 1243 Metoprolol Succinate 100 MG DAILY 11/10 1000 AC 11/10 PO 0940 Multivitamins 1 TAB DAILY 11/10 1000 AC 11/10 PO 0940 Nicotine 14 MG DAILY 11/09 2025 AC TOP Omeprazole 40 MG DAILY AC 11/10 0700 AC 11/10 PO 0542 Last 24 Hrs of Lab/Jose Results Last 24 Hrs of Labs/Mics: Laboratory Tests 11/10/17 0530: Anion Gap 12, Estimated GFR 40 L, BUN/Creatinine Ratio 16.5, Troponin I 1.82 *H , CBC w Diff NO MAN DIFF REQ, RBC 2.88 L, MCV 79.9 L, MCH 26.0 L, MCHC 32.5 L, RDW 18.4 H, MPV 8.1, Gran % 67.8, Lymphocytes % 18.9 L, Monocytes % 9.0, Eosinophils % 3.3, Basophils % 1.0, Absolute Granulocytes 4.2, Absolute Lymphocytes 1.2, Absolute Monocytes 0.6, Absolute Eosinophils 0.2, Absolute Basophils 0.1, Urine Color BLDY H, Urine Clarity TURBD H, Urine pH 6.5, Ur Specific [place] 1.020, Urine Protein >=300 H, Urine Ketones 15 H, Urine Nitrite POS H, Urine Bilirubin NEG@ICTO, Urine Urobilinogen 2.0 H, Ur Leukocyte Esterase MOD H, Ur Microscopic SEDIMENT EXAMINED, Urine RBC PACKD H, Urine Hemoglobin LARGE H, Urine Glucose NEG 11/09/17 2248: Troponin I 2.38 *H, CBC w Diff NO MAN DIFF REQ, RBC 2.51 L, MCV 78.6 L, MCH 25.5 L, MCHC 32.5 L, RDW 19.2 H, MPV 7.9, Gran % 63.4, Lymphocytes % 21.5, Monocytes % 10.5 H, Eosinophils % 3.6, Basophils % 1.0, Absolute Granulocytes 3.8, Absolute Lymphocytes 1.3, Absolute Monocytes 0.6, Absolute Eosinophils 0.2, Absolute Basophils 0.1 Assessment/Plan Assessment: 66-year-old male with a past medical history of anemia 2/2 transitional cell renal carcinoma diagnosed in late 2017, hypertension, hyperlipidemia, neuropathy , GERD, CAD with 2 stents, was on dual antiplatelet therapy (aspirin dc'ed), diabetes mellitus presenting for low h/h #Anemia 2/2 RCC hematuria with hydronephrosis H/H 5.9/18.3 -> 7.5/23 Currently receiving 3rd unit -Follow-up CBC s/p 3rd transfusion -Hemoglobin goal >8 -Continue iron -Follow up urology consult with Dr. Ojeda #elevated trops / Type [address] CT troponins 0.54, -> 2.38 peak -echo -follow cards recs #CKD CR 1.7, BUN 30 -Continue to monitor #Chronic medical conditions: hypertension, hyperlipidemia, neuropathy, GERD, CAD with 2 stents, diabetes, mental health -Continue metoprolol, Plavix, Atorvastatin, Chlorthalidone, Omeprazole, Amlodipine, Gabapentin, Fluphenazine, ariprazole #FULL CODE #DVT ppx - ALPS (bleeding) Problem List: 1. Elevated troponin 2. Renal cell carcinoma 3. Hematuria Pain Ratin Pain Location: none Pain Goal: Pain 4 or less Pain Plan: pain pathway Tomorrow's Labs & Rationales: cbc bep Maura Darby MD 11/10/17 1113: Attending MD Review Statement Attending Statement Attending MD Statement: examined this patient, discuss w/resident/PA/VOICER, agreed w/resident/PA/VOICER, reviewed EMR data (avail) Attending Assessment/Plan: 67M PMH hypertension, hyperlipidemia, neuropathy, GERD, CAD with 2 stents placed 2 month ago, currently on dual antiplatelet therapy, untreated transitional cell renal carcinoma diagnosed in late 2016, diabetes mellitus sent by PCP for anemia found on routine labs. Patient is asymptomatic, feels well, and has no complaints other than not wanting to be in the hospital. He has gross hematuria , which is chronic, and refuses nephrectomy. He denies chest pain, palpitations , SOB, weakness, lightheadedness. He was found to have elevated troponin 0.58, peaked at 2.38 with normal EKG. No complaints today. Hgb is 7.5. 1. Chronic blood loss anemia 2. Type 2 myocardial infarction 3. Gross hematuria secondary to transitional cell carcinoma 4. History of CAD Plan - Continue on telemetry - Troponin peaked, will not trend any further - Transfuse 1 additional unit pRBC, goal Hgb > 8 - Echocardiogram - Cardiology consult - Urology consult - Continue home meds including Plavix, will speak to cardiology about ASA - ALPS for DVT PPx - Anticipated discharge tomorrow pending stable Hgb and recommendations from cardiology and urology. Please send CMR to pharmacy for review. No medication changes. - Check CBC tomorrow, do not need to check BMP
--- NOTE | 2017-11-10 07:26 | Cons- Urology ---
General Information and HPI Consulting Request Date of Consult: 11/10/17 Requested By: Maura Darby MD Reason for Consult: left renal hydro/mass: gross hematuria Source of Information: patient, old records Exam Limitations: no limitations History of Present Illness: 67 yr old with known renal mass, admitted with CP and elevated troponin. No diaphoresis, SOB. Pt started on anti-coags and developed gross hematuria. Allergies/Medications Allergies: Coded Allergies: No Known Allergies (06/22/16) Home Med List: Albuterol Sulfate (Proair Hfa) 90 MCG HFA.AER.AD 2 PUF INH Q4-6 PRN PRN ASTHMA (Reported) Amlodipine Besylate/Benazepril (Lotrel 10-40 MG Capsule) 10 MG-40 MG CAPSULE 1 CAP PO DAILY HTN (Reported) Aripiprazole (Abilify) 15 MG TABLET 1 TAB PO DAILY BIPOLAR (Reported) Aspirin (Aspirin*) 81 MG TAB.CHEW 1 TAB PO DAILY CAD (Reported) Atorvastatin Calcium (Lipitor) 40 MG TABLET 1 TAB PO QHS CHOLESTEROL ( Reported) Chlorthalidone 25 MG TABLET 1 TAB PO DAILY HTN (Reported) Clopidogrel Bisulfate (Clopidogrel) 75 MG TABLET 1 TAB PO DAILY CAD (Reported ) Ferrous Sulfate 325 MG (65 MG IRON) TABLET 1 TAB PO DAILY anemia (Reported) Fluphenazine HCl 5 MG TABLET 1 TAB PO BID MENTAL HEALTH (Reported) Gabapentin (Neurontin) 800 MG TABLET 1 TAB PO BID NEUROPATHY (Reported) 1100 MG IN AM AND 800 MG IN PM Metoprolol Succinate 100 MG TAB.ER.24H 1 TAB PO DAILY HTN (Reported) Avalon-3 Acid Ethyl Esters (Lovaza) 1 GRAM CAPSULE 2 CAP PO BID CHOLESTEROL ( Reported) Pantoprazole Sodium (Protonix) 40 MG TABLET.DR 1 TAB PO DAILY GERD (Reported) Current Medications: Current Medications Sig/Jacey Start time Last Medication Dose Route Stop Time Status Admin Acetaminophen 650 MG Q6P PRN 11/09 1830 AC PO Albuterol Sulfate 2 PUF Q4-6 PRN PRN 11/09 1830 AC INH Amlodipine Besylate 10 MG DAILY 11/10 1000 AC PO Aripiprazole 15 MG AT BEDTIME 11/10 2200 DC PO Aripiprazole 15 MG DAILY 11/10 1000 DC PO Aripiprazole 15 MG AT BEDTIME 11/09 2215 AC 11/09 PO 2244 Atorvastatin Calcium 40 MG AT BEDTIME 11/09 2200 AC 11/09 PO 2244 Chlorthalidone 25 MG DAILY 11/10 1000 AC PO Clopidogrel Bisulfate 75 MG DAILY 11/10 1000 AC PO Ferrous Sulfate 325 MG DAILY 11/10 1000 AC PO Fish Oil 1,050 MG BID 11/09 2200 AC 11/09 PO 2244 Fluphenazine HCl 5 MG BID 11/09 2200 AC 11/09 PO 2245 Gabapentin 800 MG BID 11/090 AC 11/09 PO 2244 Metoprolol Succinate 100 MG DAILY 11/10 1000 AC PO Multivitamins 1 TAB DAILY 11/10 1000 AC PO Nicotine 14 MG DAILY 11/09 2025 AC TOP Omeprazole 40 MG DAILY AC 11/10 0700 AC 11/10 PO 0542 Past History Medical History Blood Transfusion Hx: Yes Neurological: NONE EENT: NONE Cardiovascular: hypertension, hyperlipidemia Respiratory: NONE Gastrointestinal: NONE Hepatic: NONE Renal: NONE Musculoskeletal: NONE Psychiatric: MOOD SWINGS Endocrine: diabetes Blood Disorders: anemia Cancer(s): bladder cancer 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 Other Smoking Status: Current Everyday Smoker (half pack per day [id number]) ETOH Use: denies use Illicit Drug Use: denies illicit drug use Functional Ability ADLs Independent: dressing, eating, toileting, bathing. Ambulation: independent IADLs Independent: shopping, housework, finances, food prep, telephone, transportation , medication admin. Employment History Retired? unknown Review of Systems Review of Systems Constitutional: Reports: malaise. EENTM: Denies: no symptoms. Cardiovascular: Reports: chest pain. Respiratory: Denies: no symptoms. GI: Denies: no symptoms. Genitourinary: Reports: hematuria. Musculoskeletal: Denies: no symptoms. Skin: Denies: no symptoms. Exam & Diagnostic Data Vital Signs and I&O Vital Signs Date Time Temp Pulse Resp B/P B/P Pulse O2 O2 Flow FiO2 Mean Ox Delivery Rate 11/11 635 98.0 92 20 140/72 91 11/09 2012 98.7 74 16 122/64 95 Room Air 11/09 1957 95 Room Air Room Air 11/09 1832 98.7 70 19 130/61 99 Room Air 11/09 1635 98.9 76 16 147/64 98 11/09 1448 99.0 72 16 136/65 98 11/09 1433 98.6 75 16 126/59 98 Room Air 11/09 1248 Room Air 11/09 1111 98.3 88 18 175/63 98 Room Air Intake & Output 11/10 0811/10 0000 11/09 1600 11/09 0800 11/09 0000 11/08 1600 Intake Total 675 100 Output Total 500 Balance 175 100 Intake, Blood 350 Product Intake, IV 150 Intake, Oral 175 100 Output, Urine 500 Patient 208 lb 210 lb Weight Weight Bed scale Reported by Patient Measurement Method Physical Exam General Appearance: well developed/nourished Head: atraumatic Eyes: Bilateral: normal appearance. Neck: normal inspection Respiratory: normal breath sounds Cardiovascular: regular rate/rhythm Gastrointestinal: normal bowel sounds, soft, non-tender Back: no vertebral tenderness Extremities: normal inspection Skin: intact, normal color, warm/dry Reproductive: Normal male genitalia Last 24 Hours of Labs: Laboratory Tests 11/10 11/09 0530 2248 Chemistry Sodium (137 - 145 mmol/L) 144 Potassium (3.5 - 5.1 mmol/L) 4.1 Chloride (98 - 107 mmol/L) 106 Carbon Dioxide (22 - 30 mmol/L) 25 Anion Gap (5 - 16) 12 BUN (9 - 20 mg/dL) 28 H Creatinine (0.7 - 1.2 mg/dL) 1.7 H Estimated GFR (>60 ml/min) 40 L BUN/Creatinine Ratio (7 - 25 %) 16.5 Troponin I (<0.11 ng/ml) 1.82 *H 2.38 *H Hematology CBC w Diff NO MAN DIFF REQ NO MAN DIFF REQ WBC (4.8 - 10.8 /CUMM) 6.3 6.1 RBC (4.70 - 6.10 /CUMM) 2.88 L 2.51 L Hgb (14.0 - 18.0 G/DL) 7.5 L 6.4 *L Hct (42 - 52 %) 23.0 L 19.7 *L MCV (80.0 - 94.0 FL) 79.9 L 78.6 L MCH (27.0 - 31.0 PG) 26.0 L 25.5 L MCHC (33.0 - 37.0 G/DL) 32.5 L 32.5 L RDW (11.5 - 14.5 %) 18.4 H 19.2 H Plt Count (130 - 400 /CUMM) 196 189 MPV (7.4 - 10.4 FL) 8.1 7.9 Gran % (42.2 - 75.2 %) 67.8 63.4 Lymphocytes % (20.5 - 51.1 %) 18.9 L 21.5 Monocytes % (1.7 - 9.3 %) 9.0 10.5 H Eosinophils % (0 - 5 %) 3.3 3.6 Basophils % (0.0 - 2.0 %) 1.0 1.0 Absolute Granulocytes (1.4 - 6.5 /CUMM) 4.2 3.8 Absolute Lymphocytes (1.2 - 3.4 /CUMM) 1.2 1.3 Absolute Monocytes (0.10 - 0.60 /CUMM) 0.6 0.6 Absolute Eosinophils (0.0 - 0.7 /CUMM) 0.2 0.2 Absolute Basophils (0.0 - 0.2 /CUMM) 0.1 0.1 Urines Urine Color (YEL,AMB,STR) BLDY H Urine Clarity (CLEAR) TURBD H Urine pH (5.0 - 8.0) 6.5 Ur Specific Ste[place] (1.001 - 1.035) 1.020 Urine Protein (NEG,<30 MG/DL) >=300 H Urine Ketones (NEG) 15 H Urine Nitrite (NEG) POS H Urine Bilirubin (NEG) NEG@ICTO Urine Urobilinogen (0.1 - 1.0 EU/dl) 2.0 H Ur Leukocyte Esterase (NEG) MOD H Ur Microscopic SEDIMENT EXAMINED Urine RBC (0 - 5 /HPF) PACKD H Urine Hemoglobin (NEG) LARGE H Urine Glucose (N MG/DL) NEG 11/09 11/09 1646 1242 Chemistry Sodium (137 - 145 mmol/L) 143 Potassium (3.5 - 5.1 mmol/L) 3.7 Chloride (98 - 107 mmol/L) 104 Carbon Dioxide (22 - 30 mmol/L) 26 Anion Gap (5 - 16) 13 BUN (9 - 20 mg/dL) 30 H Creatinine (0.7 - 1.2 mg/dL) 1.7 H Estimated GFR (>60 ml/min) 40 L BUN/Creatinine Ratio (7 - 25 %) 17.6 Glucose (65 - 99 mg/dL) 138 H Calcium (8.4 - 10.2 mg/dL) 9.3 Total Bilirubin (0.2 - 1.3 mg/dL) 0.3 AST (17 - 59 U/L) 26 ALT (21 - 72 U/L) 29 Alkaline Phosphatase (< 127 U/L) 80 Troponin I (<0.11 ng/ml) 1.93 *H 0.54 *H Total Protein (6.3 - 8.2 g/dL) 7.3 Albumin (3.5 - 5.0 g/dL) 4.1 Globulin (1.9 - 4.2 gm/dL) 3.2 Albumin/Globulin Ratio (1.1 - 2.2 %) 1.3 Coagulation PT (9.4 - 12.5 SEC) 11.9 INR (0.90 - 1.17) 1.09 APTT (25 - 37 SEC) 30 Hematology CBC w Diff NO MAN DIFF REQ WBC (4.8 - 10.8 /CUMM) 6.3 RBC (4.70 - 6.10 /CUMM) 2.37 L Hgb (14.0 - 18.0 G/DL) 5.9 *L Hct (42 - 52 %) 18.3 *L MCV (80.0 - 94.0 FL) 77.2 L MCH (27.0 - 31.0 PG) 25.1 L MCHC (33.0 - 37.0 G/DL) 32.5 L RDW (11.5 - 14.5 %) 19.5 H Plt Count (130 - 400 /CUMM) 227 MPV (7.4 - 10.4 FL) 7.8 Gran % (42.2 - 75.2 %) 67.0 Lymphocytes % (20.5 - 51.1 %) 21.4 Monocytes % (1.7 - 9.3 %) 8.7 Eosinophils % (0 - 5 %) 1.9 Basophils % (0.0 - 2.0 %) 1.0 Absolute Granulocytes (1.4 - 6.5 /CUMM) 4.2 Absolute Lymphocytes (1.2 - 3.4 /CUMM) 1.3 Absolute Monocytes (0.10 - 0.60 /CUMM) 0.5 Absolute Eosinophils (0.0 - 0.7 /CUMM) 0.1 Absolute Basophils (0.0 - 0.2 /CUMM) 0.1 Imaging Results: PATIENT: LYN TELLEZ PRESENT AGE: 66 PATIENT ACCOUNT NO: [id number] : 49 LOCATION: [facility] ORDERING PHYSICIAN: NATASHA GUZMAN MD SERVICE DATE: 04/06/17 EXAM TYPE: CAT - CT ABD & PELVIS W/ & W/O IV CO EXAMINATION: CT ABDOMEN AND PELVIS WITHOUT AND WITH CONTRAST CLINICAL INFORMATION: Gross hematuria. COMPARISON: 07/19/2008 TECHNIQUE: Multidetector volumetric imaging was performed through the abdomen prior to IV contrast. The abdomen and pelvis were then reexamined after the administration of 93 mL Optiray 320 intravenous contrast. Sagittal and coronal reformatted images were obtained on the technologist's workstation. DLP: 2488 mGy-cm FINDINGS: LUNG BASES: Scattered cystic/emphysematous changes in visualized lung bases. Atherosclerotic calcification of the descending thoracic aorta and coronary arteries. No pericardial or pleural effusion. LIVER, GALLBLADDER, AND BILIARY TREE: Mild, diffuse steatosis of the liver with relative sparing around the gallbladder fossa. No evidence of hepatic mass or intrahepatic bile duct dilatation. Possible small gallbladder polyps (images 104 and 112, series 5). Otherwise, gallbladder is unremarkable. PANCREAS: Unremarkable. SPLEEN: Unremarkable. ADRENAL GLANDS: Unremarkable. RIGHT KIDNEY AND URETER: The right kidney has lobulated contour and there is [id number] cortical atrophy of the mid to-upper pole, likely on the basis of chronic ischemia. The right kidney is supplied by two renal arteries and atherosclerotic plaque is seen at the origin of the main, superior renal artery. LEFT KIDNEY AND URETER: The left kidney is normal in size. Small, 0.5 cm hypodense foci within the cortex of the upper and lower poles of the left kidney are too small to characterize. There is a 0.2 cm calculus at the lower pole (image 42, series 2). There is urothelial thickening of calyces within the posterior and lateral aspect of the lower pole, and the irregular, thickened urothelium extends into the renal pelvis toward the ureteropelvic junction. This corresponds to the region of relatively high attenuation within the renal pelvis on the noncontrast images, suggesting a component of clot/hemorrhage within the pelvis in addition to the suspected urothelial tumor. The ureter is normal. BLADDER: Unremarkable. GASTROINTESTINAL TRACT: Stomach is underdistended. Bowel loops are normal in size. Appendix is normal. Diverticulosis of descending and sigmoid colon without diverticulitis. No ascites or pneumoperitoneum. ABDOMINAL WALL: Unremarkable. LYMPH NODES: No pathologic sized lymph nodes within the abdomen or pelvis. VASCULAR: Severe atherosclerotic disease of abdominal aorta. Calcified plaque produces moderate to severe aortic lumen stenosis at the level of the SMA and renal arteries, and within the infrarenal aorta, as well. Severe stenosis of common iliac arteries. There is dense atherosclerotic plaque at the origins of the SMA, celiac trunk and main right renal artery. PELVIC VISCERA: Prostate gland is normal in size. No pelvic free fluid. OSSEOUS STRUCTURES: No aggressive osseous lesions. Within the lumbar spine, facet arthropathy is most advanced on the right at L4-L5 and L5-S1. Multiple injection granulomata within subcutaneous tissues of the gluteal regions. IMPRESSION: 1. Findings are suspicious for urothelial carcinoma involving lower pole calyces and pelvis of the left kidney along with hyperdense hemorrhage in the renal pelvis. No evidence of ureteral or bladder tumor. 2. The right kidney is supplied by two renal arteries and the [id number] cortical atrophy of the mid to upper pole of the right kidney is likely secondary to chronic ischemia. 3. Severe atherosclerotic disease of abdominal aorta and branch vessels. 4. Colonic diverticulosis without diverticulitis. Assessment/Plan Assessment/Plan renal mass/will discuss with Dr. Hinojosa who has been following pt. Copies To: Peterson Meredith MD Consult Acknowledgment - Thank you for your consult request. Attending MD Review Statement Attending Statement Attending MD Statement: examined this patient, discuss w/resident/PA/SUPERVISOR [employer] Attending Assessment/Plan: renal mass: will discuss with Dr. Hinojosa
--- NOTE | 2017-11-10 13:59 | PN- Cardiology ---
Subjective Subjective: clinically stable. No cardiac symptoms at the moment. Objective Vital Signs and I&Os Vital Signs Date Time Temp Pulse Resp B/P B/P Pulse O2 O2 Flow FiO2 Mean Ox Delivery Rate 11/10 0940 140/72 11/10 09 140/70 11/10 0636 98.0 92 20 140/72 91 11/09 2012 98.7 74 16 122/64 95 Room Air 11/09 1957 95 Room Air Room Air 11/09 1832 98.7 70 19 130/61 99 Room Air 11/09 1635 98.9 76 16 147/64 98 11/09 1448 99.0 72 16 136/65 98 11/09 1433 98.6 75 16 126/59 98 Room Air Intake & Output 11/10 1600 11/10 0800 11/10 0000 11/09 1600 11/09 0800 11/09 0000 Intake Total 675 100 Output Total 500 Balance 175 100 Intake, Blood 350 Product Intake, IV 150 Intake, Oral 175 100 Output, Urine 500 Patient 208 lb 210 lb Weight Weight Bed scale Reported by Patient Measurement Method Physical Exam: General Appearance Alert, Oriented X3, Cooperative Cardiovascular Regular Rate, Normal S1, Normal S2, 2/6 systolic murmur Lungs Clear to Auscultation, decreased air movement at bases Abdomen Normal Bowel Sounds, Soft, No Tenderness Extremities 1- 2+ LE edema Vascular 2+ radial pulses Current Medications: Current Medications Sig/Jacey Start time Last Medication Dose Route Stop Time Status Admin Acetaminophen 650 MG Q6P PRN 11/09 1830 AC PO Albuterol Sulfate 2 PUF Q4-6 PRN PRN 11/09 1830 AC INH Amlodipine Besylate 10 MG DAILY 11/10 1000 AC 11/10 PO 0940 Aripiprazole 15 MG AT BEDTIME 11/10 2200 DC PO Aripiprazole 15 MG DAILY 11/10 1000 DC PO Aripiprazole 15 MG AT BEDTIME 11/09 2215 AC 11/09 PO 2244 Atorvastatin Calcium 40 MG AT BEDTIME 11/09 2200 AC 11/09 PO 2244 Chlorthalidone 25 MG DAILY 11/10 1000 AC 11/10 PO 1243 Clopidogrel Bisulfate 75 MG DAILY 11/10 1000 AC 11/10 PO 0940 Ferrous Sulfate 325 MG DAILY 11/10 1000 AC 11/10 PO 0940 Fish Oil 1,050 MG BID 11/09 2200 AC 11/10 PO 0940 Fluphenazine HCl 5 MG BID 11/09 2199 AC 11/10 PO 0940 Gabapentin 800 MG BID 11/09 2200 AC 11/10 PO 0940 Insulin Aspart 0 TIDAC 11/10 1200 AC 11/10 HI 1243 Metoprolol Succinate 100 MG DAILY 11/10 1000 AC 11/10 PO 0940 Multivitamins 1 TAB DAILY 11/10 1000 AC 11/10 PO 0940 Nicotine 14 MG DAILY 11/09 2025 AC TOP Omeprazole 40 MG DAILY AC 11/10 0700 AC 11/10 PO 0542 Results Last 48 Hrs of Labs/Mics: Laboratory Tests 11/10/17 0530: Anion Gap 12, Estimated GFR 40 L, BUN/Creatinine Ratio 16.5, Troponin I 1.82 *H , CBC w Diff NO MAN DIFF REQ, RBC 2.88 L, MCV 79.9 L, MCH 26.0 L, MCHC 32.5 L, RDW 18.4 H, MPV 8.1, Gran % 67.8, Lymphocytes % 18.9 L, Monocytes % 9.0, Eosinophils % 3.3, Basophils % 1.0, Absolute Granulocytes 4.2, Absolute Lymphocytes 1.2, Absolute Monocytes 0.6, Absolute Eosinophils 0.2, Absolute Basophils 0.1, Urine Color BLDY H, Urine Clarity TURBD H, Urine pH 6.5, Ur Specific [place] 1.020, Urine Protein >=300 H, Urine Ketones 15 H, Urine Nitrite POS H, Urine Bilirubin NEG@ICTO, Urine Urobilinogen 2.0 H, Ur Leukocyte Esterase MOD H, Ur Microscopic SEDIMENT EXAMINED, Urine RBC PACKD H, Urine Hemoglobin LARGE H, Urine Glucose NEG 11/09/17 2248: Troponin I 2.38 *H, CBC w Diff NO MAN DIFF REQ, RBC 2.51 L, MCV 78.6 L, MCH 25.5 L, MCHC 32.5 L, RDW 19.2 H, MPV 7.9, Gran % 63.4, Lymphocytes % 21.5, Monocytes % 10.5 H, Eosinophils % 3.6, Basophils % 1.0, Absolute Granulocytes 3.8, Absolute Lymphocytes 1.3, Absolute Monocytes 0.6, Absolute Eosinophils 0.2, Absolute Basophils 0.1 11/09/17 1646: Troponin I 1.93 *H 11/09/17 1242: Anion Gap 13, Estimated GFR 40 L, BUN/Creatinine Ratio 17.6, Glucose 138 H, Calcium 9.3, Total Bilirubin 0.3, AST 26, ALT 29, Alkaline Phosphatase 80, Troponin I 0.54 *H, Total Protein 7.3, Albumin 4.1, Globulin 3.2, Albumin/ Globulin Ratio 1.3, PT 11.9, INR 1.09, APTT 30, CBC w Diff NO MAN DIFF REQ, RBC 2.37 L, MCV 77.2 L, MCH 25.1 L, MCHC 32.5 L, RDW 19.5 H, MPV 7.8, Gran % 67.0, Lymphocytes % 21.4, Monocytes % 8.7, Eosinophils % 1.9, Basophils % 1.0, Absolute Granulocytes 4.2, Absolute Lymphocytes 1.3, Absolute Monocytes 0.5, Absolute Eosinophils 0.1, Absolute Basophils 0.1 Assessment/Plan Assessment/Plan Assessment: 1. Worsening dyspnea likely related to anemia, etc. 2. Worsening anemia 3. History of coronary artery disease, status post stenting, on clopidogrel 4. Recent neurologic symptoms; rule out TIA/CVA 5. Elevated troponin, suggestive of type II [place] 6. chronic renal insufficiency Recommendations: -continue to monitor on telemetry for now -Transfuse to hemoglobin greater than 7.0 -Trend troponin until decreasing; the troponin has thus far peaked at 2.38. Follow-up pending -ECG again in the morning to rule out interval change -Continue regular medications of possible -Echocardiogram pending to rule out any changes in left ventricular wall motion or function in view of elevated troponin -Further plans after the above. Continue telemetry? Yes
[2017-11-10 14:26] VITALS: BP 138/66
--- NOTE | 2017-11-10 17:10 | PN- Urology ---
Surgical Brief Attending Note Brief Attending Note: Patient seen by Dr Meredith this AM but he is known to me. He has had gross hematuria and underwent a w/u for this. This revealed a transitional celll ca of the L kidney and an atrophic R kidney. Nuclear medicine renal scan showed significantly decreased function of the R kidney and his baseline creatinine is 1.7. In addition he had cardiac stents placed within the last few months and is on plavix. He has had continued hematuria and has been admitted here for transfusions. He was admitted again now with fatigue and SOB. Again he was found to have anemia due to his gross hematuria and on this admission also found to have elevated troponins. He is followed by Dr Montiel at [facility]. In an effort to avoid dialysis in him the plan has been to manage conservatively in the hopes that he would eventually be able to come off of the plavix and the hematuria would lessen. At this point would transfuse as needed. Will continue efforts to attempt to avoid L nephro-ureterectomy. He has a f/u appoint with Dr Montiel at [facility] at the end of this month
[2017-11-10 22:52] VITALS: BP 154/80
[2017-11-10 23:58] LABS: ABSOLUTE BASOPHIL COUNT 0.1 /CUMM (0.0-0.2); ABSOLUTE EOSINOPHIL COUNT 0.4 /CUMM (0.0-0.7); ABSOLUTE LYMPH COUNT 1.7 /CUMM (1.2-3.4); ABSOLUTE MONOCYTE COUNT 0.8 /CUMM (0.10-0.60); BASOPHIL % 0.8 % (0.0-2.0); EOSINOPHIL % 5.1 % (0-5); GRANULOCYTE % 58.2 % (42.2-75.2); HEMATOCRIT 25.2 % (42-52); MEAN CORPUSCULAR HGB 26.4 PG (27.0-31.0); MEAN CORPUSCULAR HGB CONC 32.9 G/DL (33.0-37.0); MEAN CORPUSCULAR VOLUME 80.1 FL (80.0-94.0); MEAN PLATELET VOLUME 8.1 FL (7.4-10.4); PLATELET COUNT 192 /CUMM (130-400); RBC DISTRIBUTION WIDTH 17.4 % (11.5-14.5); RED BLOOD CELL CT 3.14 /CUMM (4.70-6.10); WHITE BLOOD CELL COUNT 6.9 /CUMM (4.8-10.8)
[2017-11-11 07:01] VITALS: BP 142/72
[2017-11-11 08:08] LABS: ABSOLUTE BASOPHIL COUNT 0.1 /CUMM (0.0-0.2); ABSOLUTE EOSINOPHIL COUNT 0.3 /CUMM (0.0-0.7); ABSOLUTE GRANULOCYTE CT 5.5 /CUMM (1.4-6.5); ABSOLUTE LYMPH COUNT 1.4 /CUMM (1.2-3.4); ABSOLUTE MONOCYTE COUNT 0.7 /CUMM (0.10-0.60); EOSINOPHIL % 3.9 % (0-5); GRANULOCYTE % 68.1 % (42.2-75.2); HEMATOCRIT 26.2 % (42-52); MEAN CORPUSCULAR HGB 26.8 PG (27.0-31.0); MEAN CORPUSCULAR HGB CONC 33.3 G/DL (33.0-37.0); MEAN CORPUSCULAR VOLUME 80.5 FL (80.0-94.0); MEAN PLATELET VOLUME 8.3 FL (7.4-10.4); PLATELET COUNT 190 /CUMM (130-400); RBC DISTRIBUTION WIDTH 17.9 % (11.5-14.5); RED BLOOD CELL CT 3.26 /CUMM (4.70-6.10); WHITE BLOOD CELL COUNT 8.1 /CUMM (4.8-10.8)
--- NOTE | 2017-11-11 08:27 | PN- Housestaff ---
Vineet WOMACK,[facility] 11/11/17826: Subjective Follow-up For: Anemia Hematuria RCC Elevated trops / Type II OK Tele-Events Since Last Visit: NSR/first-degree heart block HR 6975 with bradycardia to 44 IN 0.22 PVC Subjective: No acute events overnight. States that he feels better after receiving blood transfusions. States that he feels much more energetic. Review of Systems Constitutional: Reports: see HPI. Objective Last 24 Hrs of Vital Signs/I&O Vital Signs Date Time Temp Pulse Resp B/P B/P Pulse O2 O2 Flow FiO2 Mean Ox Delivery Rate 11/11 0831 80 140/70 11/11 0831 80 140/70 11/11 0701 98.3 72 20 142/72 100 Room Air 11/10 2252 97.6 73 20 154/80 96 Room Air 11/10 1426 98.2 69 20 138/66 96 Room Air Intake & Output / 1600 04/ 0800 04/ 0000 Intake Total 110 200 Output Total 600 300 Balance -490 -100 Intake, IV 10 Intake, Oral 100 200 Number 1 Bowel Movements Output, Urine 600 300 Physical Exam General Appearance: Alert, Oriented X3, Cooperative Cardiovascular: Regular Rate, Normal S1, Normal S2 Lungs: Clear to Auscultation, Normal Air Movement Abdomen: Normal Bowel Sounds, Soft, No Tenderness Extremities: 1+ right lower extremity edema, 3+ left lower extremity edema Assessment/Plan Assessment: 66-year-old male with a past medical history of anemia 2/2 transitional cell renal carcinoma diagnosed in late 2016, hypertension, hyperlipidemia, neuropathy , GERD, CAD with 2 stents, was on dual antiplatelet therapy (aspirin dc'ed), diabetes mellitus presenting for low h/h Patient being discharged today #Acute on chronic blood loss anemia 2/2 RCC hematuria with hydronephrosis H/H 5.9/18.3 -> 8.7/25.2 Status post 3 units -Follow-up outpatient [place] urologist Dr. Serna -Hemoglobin goal >8 -Continue iron #elevated trops / Type 2 OK troponins 0.54, -> 2.38 peak -echo -Follow-up outpatient cardiology for possible nuclear stress testing #CKD CR 1.7, BUN 30 -Continue to monitor #Chronic medical conditions: hypertension, hyperlipidemia, neuropathy, GERD, CAD with 2 stents, diabetes, mental health -Continue metoprolol, Plavix, Atorvastatin, Chlorthalidone, Omeprazole, Amlodipine, Gabapentin, Fluphenazine, ariprazole #FULL CODE #DVT ppx - ALPS (bleeding) Problem List: 1. Renal cell carcinoma 2. Elevated troponin 3. Acute blood loss anemia Pain Ratin Pain Location: none Pain Goal: Pain 4 or less Pain Plan: pain pathway Tomorrow's Labs & Rationales: none Maura Darby MD 11/11/17 1104: Attending MD Review Statement Attending Statement Attending MD Statement: examined this patient, discuss w/resident/PA/DISMANTLER, agreed w/resident/PA/DISMANTLER, reviewed EMR data (avail) Attending Assessment/Plan: 67M PMH hypertension, hyperlipidemia, neuropathy, GERD, CAD with 2 stents placed 2 month ago, currently on dual antiplatelet therapy, untreated transitional cell renal carcinoma diagnosed in late 2017, diabetes mellitus sent by PCP for anemia found on routine labs. Patient is asymptomatic, feels well, and has no complaints other than not wanting to be in the hospital. He has gross hematuria , which is chronic, and refuses nephrectomy. He denies chest pain, palpitations , SOB, weakness, lightheadedness. He was found to have elevated troponin 0.58, peaked at 2.38 with normal EKG. No complaints today. Hgb is 8.5. 1. Chronic blood loss anemia 2. Type 2 myocardial infarction 3. Gross hematuria secondary to transitional cell carcinoma 4. History of CAD Plan - Stable for discharge home - CBC to be monitored as outpatient - Outpatient cardiology follow up, will require pharmacological stress test prior to any surgery - Outpatient urology follow up for nephrectomy - Continue Plavix. No ASA.
--- NOTE | 2017-11-11 08:30 | Patient Discharge Instructions ---
Discharge Instructions General Discharge Information Special Instructions: Please follow-up with your PCP 1 week. 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 Please follow-up with your urology/compliance review specialist at [place] Dr. Montiel in one week. Please continue taking your home medications as prescribed. Acute Coronary Syndrome Inclusion Criteria At DC or during hospital stay patient has or had the following: ACS DIAGNOSIS No Discharge Core Measures Meds if any: Prescribed or Continued at Discharge Meds if any: NOT Prescribed or Continued at Discharge Congestive Heart Failure Inclusion Criteria At DC or during hospital stay patient has or had the following: CHF DIAGNOSIS No Discharge Core Measures Meds if any: Prescribed or Continued at Discharge Meds if any: NOT Prescribed or Continued at Discharge Cerebrovascular accident Inclusion Criteria At DC or during hospital stay patient has or had the following: CVA/TIA Diagnosis No Discharge Core Measures Meds if any: Prescribed or Continued at Discharge Meds if any: NOT Prescribed or Continued at Discharge Venous thromboembolism Inclusion Criteria VTE Diagnosis No VTE Type NONE VTE Confirmed by (Test) NONE Discharge Core Measures - Per Current guidelines, there needs to be overlap - treatment for the first 5 days of Warfarin therapy. - If discharged on Warfarin prior to 5 days of - overlap therapy, the patient will need to be - assessed for post discharge needs including - *Post discharge parental anticoagulation - *Warfarin and/or parental anticoagulation education - *Follow up date to check INR post discharge At least 5 days overlap therapy as Inpatient No Meds if any: Prescribed or Continued at Discharge Note: Overlap Therapy is Warfarin and Anticoagulant Meds if any: NOT Prescribed or Continued at Discharge
[2017-11-11 08:31] VITALS: BP 140/70
--- NOTE | 2017-11-11 10:14 | PN- Cardiology ---
Subjective Subjective: Feeling well. No chest pain. No shortness of breath. No palpitations. No diaphoresis. No nausea or vomiting Objective Vital Signs and I&Os Vital Signs Date Time Temp Pulse Resp B/P B/P Pulse O2 O2 Flow FiO2 Mean Ox Delivery Rate 11/11 0831 80 140/70 11/11 0831 80 140/70 11/11 0701 98.3 72 20 142/72 100 Room Air 11/10 2252 97.6 73 20 154/80 96 Room Air 11/10 1426 98.2 69 20 138/66 96 Room Air 11/10 0940 140/72 11/10 0940 140/70 Intake & Output 11/11 1600 11/11 0811/11 0000 11/10 1600 11/10 0811/10 0000 Intake Total 110 200 960 675 100 Output Total 600 300 650 500 Balance -490 -100 310 175 100 Intake, Blood 400 350 Product Intake, IV 10 0 150 Intake, Oral 100 200 560 175 100 Number 1 1 Bowel Movements Output, Urine 600 300 650 500 Patient 208 lb Weight Weight Bed scale Measurement Method Physical Exam: Gen: NAD HEENT: normal Lungs: clear to auscultation, normal resp. effort Heart: RRR, S1, S2, 2/6 systolic murmur Abdomen: Soft, nontender, no masses Extremities: 1+ edema Neuro: Alert and oriented x 3, cranial nerves intact Current Medications: Current Medications Sig/Jacey Start time Last Medication Dose Route Stop Time Status Admin Acetaminophen 650 MG Q6P PRN 11/09 1830 AC PO Albuterol Sulfate 2 PUF Q4-6 PRN PRN 11/09 1830 AC INH Amlodipine Besylate 10 MG DAILY 11/10 1000 AC 11/11 PO 0831 Aripiprazole 15 MG AT BEDTIME 11/09 2215 AC 11/10 PO 2146 Atorvastatin Calcium 40 MG AT BEDTIME 11/09 2200 AC 11/10 PO 2147 Chlorthalidone 25 MG DAILY 11/10 1000 AC 11/11 PO 0831 Clopidogrel Bisulfate 75 MG DAILY 11/10 1000 AC 11/11 PO 0831 Ferrous Sulfate 325 MG DAILY 11/10 1000 AC 11/11 PO 0831 Fish Oil 1,050 MG BID 11/09 2200 AC 11/11 PO 0832 Fluphenazine HCl 5 MG BID 11/09 220 AC 11/11 PO 0831 Gabapentin 800 MG BID 11/09 2200 AC 11/11 PO 0831 Insulin Aspart 0 TIDAC 11/10 1200 AC 11/10 CA 1243 Metoprolol Succinate 100 MG DAILY 11/10 1000 AC 11/11 PO 0831 Multivitamins 1 TAB DAILY 11/10 1000 AC 11/11 PO 0831 Nicotine 14 MG DAILY 11/09 2025 TOP Omeprazole 40 MG DAILY AC 11/10 0700 AC 11/11 PO 0516 Patient Medication 1 ED ONE ONE 11/11 944 Teaching ED 11/11 945 Results Last 48 Hrs of Labs/Mics: Laboratory Tests 11/11/17 0615: CBC w Diff NO MAN DIFF REQ, RBC 3.26 L, MCV 80.5, MCH 26.8 L, MCHC 33.3, RDW 17.9 H, MPV 8.3, Gran % 68.1, Lymphocytes % 18.0 L, Monocytes % 9.0, Eosinophils % 3.9, Basophils % 1.0, Absolute Granulocytes 5.5, Absolute Lymphocytes 1.4, Absolute Monocytes 0.7 H, Absolute Eosinophils 0.3, Absolute Basophils 0.1 11/11/17 0600: Magnesium Cancelled 11/10/17 2330: CBC w Diff NO MAN DIFF REQ, RBC 3.14 L, MCV 80.1, MCH 26.4 L, MCHC 32.9 L, RDW 17.4 H, MPV 8.1, Gran % 58.2, Lymphocytes % 24.7, Monocytes % 11.2 H, Eosinophils % 5.1 H, Basophils % 0.8, Absolute Granulocytes 4.0, Absolute Lymphocytes 1.7, Absolute Monocytes 0.8 H, Absolute Eosinophils 0.4, Absolute Basophils 0.1 11/10/17 0530: Anion Gap 12, Estimated GFR 40 L, BUN/Creatinine Ratio 16.5, Troponin I 1.82 *H , CBC w Diff NO MAN DIFF REQ, RBC 2.88 L, MCV 79.9 L, MCH 26.0 L, MCHC 32.5 L, RDW 18.4 H, MPV 8.1, Gran % 67.8, Lymphocytes % 18.9 L, Monocytes % 9.0, Eosinophils % 3.3, Basophils % 1.0, Absolute Granulocytes 4.2, Absolute Lymphocytes 1.2, Absolute Monocytes 0.6, Absolute Eosinophils 0.2, Absolute Basophils 0.1, Urine Color BLDY H, Urine Clarity TURBD H, Urine pH 6.5, Ur Specific [place] 1.020, Urine Protein >=300 H, Urine Ketones 15 H, Urine Nitrite POS H, Urine Bilirubin NEG@ICTO, Urine Urobilinogen 2.0 H, Ur Leukocyte Esterase MOD H, Ur Microscopic SEDIMENT EXAMINED, Urine RBC PACKD H, Urine Hemoglobin LARGE H, Urine Glucose NEG 11/09/17 2248: Troponin I 2.38 *H, CBC w Diff NO MAN DIFF REQ, RBC 2.51 L, MCV 78.6 L, MCH 25.5 L, MCHC 32.5 L, RDW 19.2 H, MPV 7.9, Gran % 63.4, Lymphocytes % 21.5, Monocytes % 10.5 H, Eosinophils % 3.6, Basophils % 1.0, Absolute Granulocytes 3.8, Absolute Lymphocytes 1.3, Absolute Monocytes 0.6, Absolute Eosinophils 0.2, Absolute Basophils 0.1 11/09/17 1646: Troponin I 1.93 *H 11/09/17 1242: Anion Gap 13, Estimated GFR 40 L, BUN/Creatinine Ratio 17.6, Glucose 138 H, Calcium 9.3, Total Bilirubin 0.3, AST 26, ALT 29, Alkaline Phosphatase 80, Troponin I 0.54 *H, Total Protein 7.3, Albumin 4.1, Globulin 3.2, Albumin/ Globulin Ratio 1.3, PT 11.9, INR 1.09, APTT 30, CBC w Diff NO MAN DIFF REQ, RBC 2.37 L, MCV 77.2 L, MCH 25.1 L, MCHC 32.5 L, RDW 19.5 H, MPV 7.8, Gran % 67.0, Lymphocytes % 21.4, Monocytes % 8.7, Eosinophils % 1.9, Basophils % 1.0, Absolute Granulocytes 4.2, Absolute Lymphocytes 1.3, Absolute Monocytes 0.5, Absolute Eosinophils 0.1, Absolute Basophils 0.1 Assessment/Plan Assessment/Plan Assessment: 1. Worsening dyspnea likely related to anemia, etc. 2. Worsening anemia 3. History of coronary artery disease, status post stenting, on clopidogrel 4. Recent neurologic symptoms; rule out TIA/CVA 5. Elevated troponin, suggestive of type II [place] 6. chronic renal insufficiency Plan: * Continue current cardiac medications. * Okay for discharge from cardiac standpoint. * Follow up in the office within 1 week. * Possible nuclear stress testing and echocardiogram as an outpatient Continue telemetry? Yes
--- NOTE | 2017-11-11 19:58 | Discharge Summary ---
See Addendum Visit Information Visit Dates Admission Date: 11/09/17 Discharge Date: 11/11/17 Hospital Course Course Attending Physician: Maura Darby MD Primary Care Physician: Jessica Sifuentes APRN Hospital Course: A: 66-year-old male with a past medical history of chronic anemia 2/2 transitional cell renal carcinoma diagnosed in late 2016, hypertension, hyperlipidemia, neuropathy, GERD, CAD with 2 stents previously on dual antiplatelet therapy ( aspirin dc'ed), and diabetes mellitus presenting for low open hematocrit. Problem list: #Symptomatic anemia due to acute on chronic blood loss anemia 2/2 RCC hematuria with hydronephrosis The patient presented with symptomatic anemia with an initial H/H 5.9/18.3. Head CT revealed findings most likely sequela of chronic microvascular angiopathy ischemia. He was transfused 3 units and it improved to 8.7/25.2. Urology was consulted who recommended the patient follow up with Dr Montiel at [facility]. Current plans are for conservative management by discontinuing Plavix with hopes of decreased hematuria to avoid L nephro-ureterectomy. #Elevated trops / Type 2 CO The patient presented with data troponins with a peak of 2.38. Most likely due to demand ischemia from the anemia. The patient was advised to follow up outpatient cardiology for echocardiogram and possible nuclear stress testing. #CKD The patient's creatinine remained stable around his baseline of CR 1.7. #Chronic medical conditions: hypertension, hyperlipidemia, neuropathy, GERD, CAD with 2 stents, diabetes, mental health We continued his home medications of metoprolol, clopidogrel, atorvastatin, chlorthalidone, omeprazole, amlodipine, gabapentin, fluphenazine, ariprazole. He was placed on NovoLog sliding scale during admission for his diabetes. Allergies: Coded Allergies: No Known Allergies (06/22/16) Disposition Summary Disposition Principal Diagnosis: Symptomatic anemia due to acute on chronic blood loss anemia Additional Diagnosis: RCC Hematuria Type II [place] Discharge Disposition: home health services Discharge Instructions General Discharge Information Code Status: Full Code Patient's Diet: Heart healthy Patient's Activity: As tolerated Follow-Up Instructions/Appts: Please follow-up with your PCP 1 week. Please follow-up with your price analyst in 1 week. Please follow-up with your urology/stars specialist at [facility] Dr. Montiel in one week. Please continue taking your home medications as prescribed. Medications at Discharge Discharge Medications: Stop taking the following medications: Aspirin (Aspirin*) 81 MG TAB.CHEW ORAL DAILY Continue taking these medications: Chlorthalidone (Chlorthalidone) 25 MG TABLET 1 Tablet ORAL DAILY Comments: Last Taken: 11/11/17 Time: 8:30 AM [place]-3 Acid Ethyl Esters (Lovaza) 1 GRAM CAPSULE 2 Capsule ORAL TWICE DAILY Comments: Last Taken: 11/11/17 Time: 8:30 AM Amlodipine Besylate/Benazepril (Lotrel 10-40 MG Capsule) 10 MG-40 MG CAPSULE 1 Capsule ORAL DAILY Comments: Last Taken: 11/11/17 Time: 8:30 AM Atorvastatin Calcium (Lipitor) 40 MG TABLET 1 Tablet ORAL TAKE AT BEDTIME Comments: Last Taken: 11/10/17 Time: 10 PM Pantoprazole Sodium (Protonix) 40 MG TABLET.DR 1 Tablet ORAL DAILY Comments: RECIEVED PRILOSEC WHILE IN THE HOSPITAL Last Taken: 11/11/17 Time: 6 AM Metoprolol Succinate (Metoprolol Succinate) 100 MG TAB.ER.24H 1 Tablet ORAL DAILY Comments: Last Taken: 11/11/17 Time: 8:30 AM Albuterol Sulfate (Proair Hfa) 90 MCG HFA.AER.AD 2 Puff Inhale through mouth EVERY 4-6 HOURS NEEDED as needed for ASTHMA Comments: NOT TAKEN IN HOSPITAL Aripiprazole (Abilify) 15 MG TABLET 1 Tablet ORAL DAILY Comments: Last Taken: 11/10/17 Time: 10 PM Gabapentin (Neurontin) 800 MG TABLET 1 Tablet ORAL TWICE DAILY Instructions: 1100 MG IN AM AND 800 MG IN PM Comments: LAST GIVEN 10/16/17 @ 1030 Clopidogrel Bisulfate (Clopidogrel) 75 MG TABLET 1 Tablet ORAL DAILY Comments: Last Taken: 11/11/17 Time: 8:30 AM Fluphenazine HCl (Fluphenazine HCl) 5 MG TABLET 1 Tablet ORAL TWICE DAILY Qty = 30 Comments: Last Taken: 11/11/17 Time: 8:30 AM Ferrous Sulfate (Ferrous Sulfate) 325 MG (65 MG IRON) TABLET 1 Tablet ORAL DAILY Qty = 30 Comments: Last Taken: 11/11/17 Time: 8:30 AM Copies To: Jessica Sifuentes APRN
== END 2017-11-11 13:20 | disposition home health service (06) | DRG 811 ==
LOC: ERH 11:07 → ERHI 17:53 → 1NO 17:53 → ENRESERV 18:33 → ENTRNSPT 19:21 → EDTRNSPTSTS 19:24 → EDTRNSPT 19:24 → 1NO 19:46 → CMPTRNSPT 19:56 → ENPENDDIS 11-11 10:43 → 1NO 11-11 13:20
PROVIDERS: Physician Assistant; Student in an Organized Health Care Education/Training Program
PROC: 30233N1 Transfusion of Nonautologous Red Blood Cells into Peripheral Vein, Percutaneous Approach (ICD-10-PCS; principal; 2017-11-10)
DX: D50.0 Iron deficiency anemia secondary to blood loss (chronic) (principal); I21.A1 Myocardial infarction type 2; N17.9 Acute kidney failure, unspecified; C64.9 Malignant neoplasm of unspecified kidney, except renal pelvis; N13.30 Unspecified hydronephrosis; I25.10 Atherosclerotic heart disease of native coronary artery without angina pectoris; Z95.5 Presence of coronary angioplasty implant and graft; E78.5 Hyperlipidemia, unspecified; K21.9 Gastro-esophageal reflux disease without esophagitis; E11.40 Type 2 diabetes mellitus with diabetic neuropathy, unspecified; Z79.82 Long term (current) use of aspirin; Z79.51 Long term (current) use of inhaled steroids; F17.210 Nicotine dependence, cigarettes, uncomplicated; Z79.01 Long term (current) use of anticoagulants; I12.9 Hypertensive chronic kidney disease with stage 1 through stage 4 chronic kidney disease, or unspecified chronic kidney disease; N18.9 Chronic kidney disease, unspecified
CPT/HCPCS: 1NSP; 36592; 81001; 82436; 86920; 93005; 93010; 96374; 99291; J7508; P9016

== ENCOUNTER 2017-11-30 12:09 | Emergency (ER) | payer OTHER, MEDICARE ==
[~2017-11-30] VITALS: Ht 160 cm; Wt 96.2 kg
[2017-11-30 12:43] LABS: ABSOLUTE BASOPHIL COUNT 0.1 /CUMM (0.0-0.2); ABSOLUTE EOSINOPHIL COUNT 0.2 /CUMM (0.0-0.7); ABSOLUTE GRANULOCYTE CT 3.2 /CUMM (1.4-6.5); ABSOLUTE LYMPH COUNT 1.1 /CUMM (1.2-3.4); ABSOLUTE MONOCYTE COUNT 0.4 /CUMM (0.10-0.60); BASOPHIL % 1.3 % (0.0-2.0); GRANULOCYTE % 64.4 % (42.2-75.2); MEAN CORPUSCULAR HGB 26.9 PG (27.0-31.0); MEAN CORPUSCULAR HGB CONC 33.2 G/DL (33.0-37.0); MEAN CORPUSCULAR VOLUME 80.9 FL (80.0-94.0); MEAN PLATELET VOLUME 7.2 FL (7.4-10.4); PLATELET COUNT 224 /CUMM (130-400); RBC DISTRIBUTION WIDTH 19.1 % (11.5-14.5); RED BLOOD CELL CT 2.49 /CUMM (4.70-6.10)
[2017-11-30 12:47] LABS: HEMATOCRIT 20.2 % (42-52)
[2017-11-30 12:53] LABS: PTT 31 SEC (25-37)
--- NOTE | 2017-11-30 14:15 | ED GENERAL ADULT ---
History of Present Illness General Chief Complaint: General Adult Stated Complaint: SIB DR MCDUFFIE FOR BLD TRANSFUSION Source: patient, old records Exam Limitations: poor historian Vital Signs & Intake/Output Vital Signs & Intake/Output Vital Signs Date Time Temp Pulse Resp B/P B/P Pulse O2 O2 Flow FiO2 Mean Ox Delivery Rate 11/30 1946 99.1 75 20 122/56 94 Room Air 11/30 1920 98.1 78 20 171/79 97 Room Air 11/30 1650 98.1 70 20 132/59 98 Room Air 11/30 1441 98.0 73 18 109/53 97 Room Air Room Air 11/30 1423 97.4 74 18 107/52 94 11/30 1212 97.3 90 20 149/60 97 Room Air Allergies Coded Allergies: No Known Allergies (06/22/16) Reconcile Medications Albuterol Sulfate (Proair Hfa) 90 MCG HFA.AER.AD 2 PUF INH Q4-6 PRN PRN ASTHMA (Reported) Amlodipine Besylate/Benazepril (Lotrel 10-40 MG Capsule) 10 MG-40 MG CAPSULE 1 CAP PO DAILY HTN (Reported) Aripiprazole (Abilify) 15 MG TABLET 1 TAB PO DAILY BIPOLAR (Reported) Atorvastatin Calcium (Lipitor) 40 MG TABLET 1 TAB PO QHS CHOLESTEROL ( Reported) Chlorthalidone 25 MG TABLET 1 TAB PO DAILY HTN (Reported) Clopidogrel Bisulfate (Clopidogrel) 75 MG TABLET 1 TAB PO DAILY CAD (Reported ) Ferrous Sulfate 325 MG (65 MG IRON) TABLET 1 TAB PO DAILY anemia (Reported) Fluphenazine HCl 5 MG TABLET 1 TAB PO BID MENTAL HEALTH (Reported) Gabapentin (Neurontin) 800 MG TABLET 1 TAB PO BID NEUROPATHY (Reported) 1100 MG IN AM AND 800 MG IN PM Metoprolol Succinate 100 MG TAB.ER.24H 1 TAB PO DAILY HTN (Reported) [place]-3 Acid Ethyl Esters (Lovaza) 1 GRAM CAPSULE 2 CAP PO BID CHOLESTEROL ( Reported) Pantoprazole Sodium (Protonix) 40 MG TABLET.DR 1 TAB PO DAILY GERD (Reported) Triage Note: PT TO ED WITH AIDE FOR BLOOD TRANSFUSION. HAD BLOODWORK WEDNESDAY, CALLED BY DR MCDUFFIE THIS AM AND TOLD TO COME TO ED FOR BLOOD TRANSFUSION. AIDE STATES PT IS MORE CONFUSED THAN NORMAL. Triage Nurses Notes Reviewed? yes Onset: Abrupt Injury Environment: home No Modifying Factors: none HPI: 67-year-old male sent in by his hemmer lockstitch Dr. Mcduffie for blood transfusion. Patient has a history of chronic bleeding from prostate cancer. He has chronic hematuria. Patient is a very poor historian. He denies any chest pain shortness of breath lightheaded dizziness. He is able to urinate. He has a history of anemia. He is supposed to undergo surgery next month. He was recently started on Plavix secondary to cardiac stents that were placed a couple months ago. (David Ziegler) Past History Travel History Traveled to [place] past 21 day No Medical History Any Pertinent Medical History? see below for history Neurological: NONE EENT: NONE Cardiovascular: hypertension, hyperlipidemia Respiratory: NONE Gastrointestinal: NONE Hepatic: NONE Renal: NONE Musculoskeletal: NONE Psychiatric: MOOD SWINGS Endocrine: diabetes Blood Disorders: anemia Cancer(s): bladder cancer DEALER ACCOUNTS INVESTIGATOR/Reproductive: NONE History of MRSA: No History of VRE: No History of CDIFF: No Surgical History Surgical History: non-contributory Psychosocial History Who do you live with Patient/Self What is your primary language Spanish Tobacco Use: Current Daily Use Daily Tobacco Use Amount/Type: => 5 Cigarettes daily ETOH Use: denies use Illicit Drug Use: denies illicit drug use Family History Hx Contributory? No (David Ziegler) Review of Systems Review of Systems Constitutional: Reports: no symptoms. EENTM: Reports: no symptoms. Respiratory: Reports: no symptoms. Cardiovascular: Reports: no symptoms. GI: Reports: no symptoms. Genitourinary: Reports: see HPI. Musculoskeletal: Reports: no symptoms. Skin: Reports: no symptoms. Neurological/Psychological: Reports: no symptoms. Hematologic/Endocrine: Reports: see HPI. Immunologic/Allergic: Reports: no symptoms. All Other Systems: Reviewed and Negative (David Ziegler) Physical Exam Physical Exam General Appearance: well developed/nourished, alert, awake Head: atraumatic Eyes: Bilateral: normal appearance. Ears, Nose, Throat: normal ENT inspection, hearing grossly normal Neck: normal inspection Respiratory: no respiratory distress Cardiovascular: regular rate/rhythm Rectal: heme negative stool Back: normal inspection Extremities: normal inspection Neurologic/Psych: awake, alert, oriented x 3 Skin: intact Core Measures ACS in differential dx? No CVA/TIA Diagnosis: No Sepsis Present: No Sepsis Focused Exam Completed? No (David Ziegler) Progress Differential Diagnoses I considered the following diagnoses in my evaluation of the patient: Every blood loss anemia, chronic anemia, prostate cancer, UTI, GI bleed, Initial ED EKG: normal sinus rhythm, rate (76) Hand-Off Endorsed To: Billy Villa MD Endorsed Time: 1845 Pending: other (placed in ED observation) (David Ziegler) Plan of Care: Orders Procedure Date/time Status Consistent Carbohydrate 1 12/01 B Active BLOOD PRODUCT PICKUP 11/30 182 Active Add-on Test (ER Only) 11/[address] in observation 11/30 1438 Active Patient Data 11/30 1438 Active BLOOD PRODUCT PICKUP 11/30 1437 Active LEUKOCYTE POOR (PACKED CELLS) 11/30 1435 Active CULTURE,URINE 11/30 1415 Active URINALYSIS 11/30 1413 Complete EKG 11/30 1251 Active PARTIAL THROMBOPLASTIN TIME 11/30 1218 Complete PROTHROMBIN TIME 11/30 1218 Complete COMPREHENSIVE METABOLIC PANEL 11/30 1218 Complete CBC WITHOUT DIFFERENTIAL 11/30 1218 Complete TYPE & SCREEN (NOT X-MATCH) 11/30 1218 Active Laboratory Tests 11/30/17 1415: Urine Color BLDY H, Urine Clarity CLDY H, Urine pH 6.5, Ur Specific [place] 1.020, Urine Protein >=300 H, Urine Ketones TRACE H, Urine Nitrite POS H, Urine Bilirubin NEG, Urine Urobilinogen 2.0 H, Ur Leukocyte Esterase MOD H, Ur Microscopic SEDIMENT EXAMINED, Urine RBC PACKD H, Urine Hemoglobin LARGE H, Urine Glucose NEG 11/30/17 1225: Anion Gap 15, Estimated GFR 43 L, BUN/Creatinine Ratio 15.6, Glucose 100 H, Calcium 9.3, Total Bilirubin 0.4, AST 23, ALT 29, Alkaline Phosphatase 74, Total Protein 7.1, Albumin 4.0, Globulin 3.1, Albumin/Globulin Ratio 1.3, PT 12.0, INR 1.10, APTT 31, CBC w Diff NO MAN DIFF REQ, RBC 2.49 L, MCV 80.9, MCH 26.9 L, MCHC 33.2, RDW 19.1 H, MPV 7.2 L, Gran % 64.4, Lymphocytes % 22.3, Monocytes % 8.0, Eosinophils % 4.0, Basophils % 1.3, Absolute Granulocytes 3.2, Absolute Lymphocytes 1.1 L, Absolute Monocytes 0.4, Absolute Eosinophils 0.2, Absolute Basophils 0.1 Microbiology 11/30 1415 URINE ROUT: Urine Culture - RECD (Daisy WOMACK,Billy Baig) Departure Departure Disposition: HOME OR SELF CARE Condition: Stable Clinical Impression Primary Impression: Chronic blood loss anemia Referrals: Jessica Sifuentes APRN (PCP/Family) Additional Instructions: Follow-up with your urologist and hemmer lockstitch. Return if any concerns worsening symptoms. Please go over all results of today's visit with your primary care doctor. Contact your primary care doctor to let them know you were here in the emergency room. There may be nonspecific findings which may not be related to your visit today here in the emergency room but may require further evaluation and chronic monitoring by your primary care doctor. If you had a laceration today the chance of foreign body always remains. You should follow-up with your primary care doctor for recheck in 3-5 days for a wound check. If you had an x-ray done there is a chance that a fracture could have been missed on initial read and you should follow-up with your primary care doctor for repeat x-rays if symptoms persist. If your blood pressure was elevated here in the emergency room please have rechecked by [facility] primary care doctor within the next 48. If you were prescribed a narcotic here in the emergency room or any type of controlled substances you're not allowed to drive while taking this medication or operate any type of heavy machinery. Narcotics can make you feel lightheaded dizziness nausea and can cause constipation. You may need to greens picker a stool softener. Thank you for choosing [facility] emergency room. Please return to the emergency room immediately if you have any other concerns worsening of symptoms. Departure Forms: Customer Survey General Discharge Information (David Ziegler) PA/MANAGER HAIR Co-Sign Statement Statement: ED Attending supervision documentation- [] I saw and evaluated the patient. I have also reviewed all the pertinent lab results and diagnostic results. I agree with the findings and the plan of care as documented in the PA's/MANAGER HAIR's documentation. [] I have reviewed the ED Record and agree with the PA's/MANAGER HAIR's documentation. [] Additions or exceptions (if any) to the PAs/MANAGER HAIR's note and plan are summarized below: [] (Daisy WOMACK,Billy Baig) PA/MANAGER HAIR Co-Sign Statement Statement: ED Attending supervision documentation- [X] I saw and evaluated the patient. I have also reviewed all the pertinent lab results and diagnostic results. I agree with the findings and the plan of care as documented in the PA's/MANAGER HAIR's documentation. [X] I have reviewed the ED Record and agree with the PA's/MANAGER HAIR's documentation. [] Additions or exceptions (if any) to the PAs/MANAGER HAIR's note and plan are summarized below: [] (Marleen WOMACK,Darian Morrison) Critical Care Note Critical Care Note Critical Care Time: 30-74 min (45) (David Ziegler) ED Attending Observation Initial Observation Note: I have seen and personally examined LYN TELLEZ on 11/30/17 at 1439. I agree with the current emergency department documentation. The disposition (admission or discharge) is uncertain at this time, he needs a period of observation for the following reason(s): Patient has an anemia requiring a 2 unit blood transfusion. During the infusion the patient will require monitoring of vital signs and respiratory status for the possibility of transfusion reaction or volume overload/CHF. The ED Nurse caring for this patient has been personally informed as to what the patient is being observed for. (Daisy WOMACK,Billy Baig) Observation Re-Evaluation: I have reevaluated LYN TELLEZ on 11/30/17 at 2026. The physical findings that support the continued need to observe this patient include [PT BEING TRANSFUSED. NO COMPALINTS. LUNGS CTA B/L]. Observation Discharge: I have reevaluated LYN TELLEZ on 11/30/17 at 2127. The patient is: ([X]): Stable for discharge (): To be admitted to Nursing Floor (): To be placed in Observation on Nursing Floor (): For transfer to other facility The patient was being observed for [SYMPTOMATIC ANEMIA] As a result of that observation, I have determined [STABLE FOR DISCHARGE]. (Darian Hawley MD)
[2017-11-30 21:30] VITALS: BP 135/63
== END 2017-11-30 21:49 ==
LOC: ERH 12:09 → CMPBEDREQ 12-02 10:54
PROVIDERS: Physician Assistant Medical
DX: D50.0 Iron deficiency anemia secondary to blood loss (chronic) (principal); I10 Essential (primary) hypertension; E78.5 Hyperlipidemia, unspecified; F39 Unspecified mood [affective] disorder
CPT/HCPCS: 81001; 86920; 87086; 93005; 93010; 96365; 96366; P9016